=== PATIENT | female | born 1945 | race Caucasian/White ===

== ENCOUNTER 2016-03-28 12:35 | Inpatient (IN) | payer MEDICARE ==
[2016-03-28] MEDS ORDERED: methylPREDNISolone SOD SUCCI 125 MG/2 ML VIAL IV STA (12:42)
[2016-03-28] MEDS ORDERED: IPRATROPIUM-ALBUTEROL 3 ML NEB INHALATION STA (12:42)
[2016-03-28] MEDS ORDERED: MAGNESIUM SULFATE-D5W PMX 1 GM in DEXTROSE/WATER 1 100ML.BAG IVPB STA (12:42)
--- NOTE | 2016-03-28 12:45 | ED ---
SOB HPI - General Stated Complaint: AKYLA Time Seen by Provider: 03/28/16 12:35 Source: patient, EMS, RN notes reviewed Mode of arrival: EMS - History of Present Illness Initial Comments: Is a 71-year-old female history of emphysema/COPD who states she's been short of breath for the past couple weeks is getting worse today and unresponsive to her home updrafts or inhalers. She's had a cough that was nonproductive she does have some discomfort with cough but none at rest. She was found to have a saturation 79% which increased to 83 on oxygen she did have 98% saturation after the initial updraft residual is it was over she dropped to 70% again. She has had some slight fevers chills and sweats. No chest pain fevers and no bowel pain no nausea no vomiting. She does have a history of heart failure years ago. MD Complaint: shortness of breath, cough - Related Data Home Medications Medication Instructions Recorded Confirmed ALPRAZolam [Xanax] 0.5 mg PO TID PRN 03/28/16 03/28/16 Aspirin 81 mg PO DAILY 03/28/16 03/28/16 Calcium Carbonate/Vitamin D3 1 tab PO DAILY 03/28/16 03/28/16 [Calcium 500-Vit D3 600 Tablet] Fluticasone Furoate [Veramyst] 10 gm NASAL DAILY PRN 03/28/16 03/28/16 Fluticasone/Salmeterol [Advair 1 inhalation PO RT-BID 03/28/16 03/28/16 500-50 Diskus] Ipratropium/Albuterol Sulfate 1 - 2 puff INHALATION RT-QID 03/28/16 03/28/16 [Combivent Respimat Inhaler] Losartan [Cozaar] 50 mg PO DAILY 03/28/16 03/28/16 Metoprolol Succinate [Toprol XL] 25 mg PO DAILY 03/28/16 03/28/16 Multivitamins, Thera [Multivitamin] 1 tab PO DAILY 03/28/16 03/28/16 Theophylline 24 Hour [Ruben-24] 200 mg PO HS 03/28/16 03/28/16 Allergies Allergy/AdvReac Type Severity Reaction Status Date / Time fluconazole [From Diflucan] Allergy Unknown Unknown Verified 03/28/16 13:08 varenicline [From Chantix] Allergy Unknown Rash/Hives Verified 03/28/16 13:08 escitalopram [From Lexapro] AdvReac Unknown Unknown Verified 03/28/16 13:08 Review of Systems ROS Statement: Those systems with pertinent positive or pertinent negative responses have been documented in the HPI. ROS Other: All systems not noted in ROS Statement are negative. General Exam - General Exam Comments Initial Comments: This is a well-developed well-nourished awake alert anxious appearing female General appearance: alert, in no apparent distress Head exam: Present: atraumatic, normocephalic, normal inspection Eye exam: Present: normal appearance, PERRL, EOMI. Absent: scleral icterus, conjunctival injection, periorbital swelling ENT exam: Present: mucous membranes dry Neck exam: Present: normal inspection. Absent: tenderness, meningismus, lymphadenopathy Respiratory exam: Present: accessory muscle use, decreased breath sounds, prolonged expiratory. Absent: respiratory distress, wheezes, rales, rhonchi, stridor Cardiovascular Exam: Present: normal rhythm, tachycardia, normal heart sounds. Absent: systolic murmur, diastolic murmur, rubs, gallop, clicks GI/Abdominal exam: Present: soft, normal bowel sounds. Absent: distended, tenderness, guarding, rebound, rigid Extremities exam: Present: full ROM, normal capillary refill, pedal edema ( Trace edema). Absent: tenderness, joint swelling, calf tenderness Back exam: Present: normal inspection Neurological exam: Present: alert, oriented X3, CN II-XII intact Psychiatric exam: Present: normal affect, normal mood Skin exam: Present: warm, dry, intact, normal color. Absent: rash Course Vital Signs 03/28/16 03/28/16 03/28/16 12:35 13:38 13:49 Temperature 101.7 F H Pulse Rate 122 H 112 H 110 H Respiratory 26 H 22 Rate Blood Pressure 197/104 122/57 O2 Sat by Pulse 98 89 L Oximetry 03/28/16 03/28/16 03/28/16 14:03 14:08 14:38 Temperature Pulse Rate 106 H 108 H 100 Respiratory Rate Blood Pressure 129/59 118/59 O2 Sat by Pulse 90 L 89 L Oximetry 03/28/16 15:38 Temperature Pulse Rate 84 Respiratory Rate Blood Pressure 123/60 O2 Sat by Pulse 94 L Oximetry - Reevaluation(s) Reevaluation #1: 03/28/16 15:58 Repeat EKG showed a sinus rhythm of 92 IA interval 104 QRS duration 80 daily since QTC of 370/457 LVH is noted. Reevaluation #2: 03/28/16 16:01 I did reevaluate the patient after the initial treatment she still very dyspneic. Reevaluation #3: 03/28/16 16:01 The repeat eval after further treatment she did have decreased breath sounds some left lower lobe crepitation was noted. Medical Decision Making - Medical Decision Making I did a long discussion with the patient regarding the findings patient be admitted for evaluation for left lower lobe pneumonia COPD exacerbation and failed outpatient treatment. - Lab Data Result diagrams: 03/28/16 12:55 03/28/16 12:55 Lab Results 03/28/16 03/28/16 03/28/16 Range/Units 12:55 12:55 12:55 WBC 19.1 H (3.8-10.6) k/uL RBC 5.76 H (3.80-5.40) m/uL Hgb 18.0 H (11.4-16.0) gm/dL Hct 57.3 H (34.0-46.0) % MCV 99.4 (80.0-100.0) fL MCH 31.2 (25.0-35.0) pg MCHC 31.4 (31.0-37.0) g/dL RDW 13.0 (11.5-15.5) % Plt Count 313 (150-450) k/uL Neutrophils % 88 % Lymphocytes % 6 % Monocytes % 5 % Eosinophils % 1 % Basophils % 0 % Neutrophils # 16.8 H (1.3-7.7) k/uL Lymphocytes # 1.2 (1.0-4.8) k/uL Monocytes # 0.9 (0-1.0) k/uL Eosinophils # 0.1 (0-0.7) k/uL Basophils # 0.0 (0-0.2) k/uL PT (9.0-12.0) sec INR (<1.1) APTT (22.0-30.0) sec Sodium 139 (137-145) mmol/L Potassium 5.4 H (3.5-5.1) mmol/L Chloride 94 L (98-107) mmol/L Carbon Dioxide 33 H (22-30) mmol/L Anion Gap 12 mmol/L BUN 18 H (7-17) mg/dL Creatinine 0.40 L (0.52-1.04) mg/dL Est GFR (MDRD) Af Amer >60 (>60 ml/min/1.73 sqM) Est GFR (MDRD) Non-Af >60 (>60 ml/min/1.73 sqM) Glucose 103 H (74-99) mg/dL Plasma Lactic Acid Rupesh (0.7-2.0) mmol/L Calcium 9.9 (8.4-10.2) mg/dL Magnesium 2.0 (1.6-2.3) mg/dL Total Bilirubin 1.1 (0.2-1.3) mg/dL AST 39 H (14-36) U/L ALT 54 H (9-52) U/L Alkaline Phosphatase 120 (38-126) U/L Total Creatine Kinase 89 (30-135) U/L CK-MB (CK-2) 4.6 H* (0.0-2.4) ng/mL CK-MB (CK-2) Rel Index 5.2 Troponin I <0.012 (0.000-0.034) ng/mL NT-Pro-B Natriuret Pep pg/mL Total Protein 7.4 (6.3-8.2) g/dL Albumin 4.3 (3.5-5.0) g/dL 03/28/16 03/28/16 03/28/16 Range/Units 12:55 12:55 15:02 WBC (3.8-10.6) k/uL RBC (3.80-5.40) m/uL Hgb (11.4-16.0) gm/dL Hct (34.0-46.0) % MCV (80.0-100.0) fL MCH (25.0-35.0) pg MCHC (31.0-37.0) g/dL RDW (11.5-15.5) % Plt Count (150-450) k/uL Neutrophils % % Lymphocytes % % Monocytes % % Eosinophils % % Basophils % % Neutrophils # (1.3-7.7) k/uL Lymphocytes # (1.0-4.8) k/uL Monocytes # (0-1.0) k/uL Eosinophils # (0-0.7) k/uL Basophils # (0-0.2) k/uL PT 9.4 (9.0-12.0) sec INR 0.9 (<1.1) APTT 21.3 L (22.0-30.0) sec Sodium (137-145) mmol/L Potassium (3.5-5.1) mmol/L Chloride (98-107) mmol/L Carbon Dioxide (22-30) mmol/L Anion Gap mmol/L BUN (7-17) mg/dL Creatinine (0.52-1.04) mg/dL Est GFR (MDRD) Af Amer (>60 ml/min/1.73 sqM) Est GFR (MDRD) Non-Af (>60 ml/min/1.73 sqM) Glucose (74-99) mg/dL Plasma Lactic Acid Rupesh 1.9 (0.7-2.0) mmol/L Calcium (8.4-10.2) mg/dL Magnesium (1.6-2.3) mg/dL Total Bilirubin (0.2-1.3) mg/dL AST (14-36) U/L ALT (9-52) U/L Alkaline Phosphatase (38-126) U/L Total Creatine Kinase (30-135) U/L CK-MB (CK-2) (0.0-2.4) ng/mL CK-MB (CK-2) Rel Index Troponin I (0.000-0.034) ng/mL NT-Pro-B Natriuret Pep 809 pg/mL Total Protein (6.3-8.2) g/dL Albumin (3.5-5.0) g/dL - EKG Data -: EKG Interpreted by Me (EKG showed a sinus tachycardia rate 119. Interval 110 QRS duration 80 ulices) - Radiology Data Radiology results: report reviewed (Extremities show evidence of left lower lobe infiltrate.), image reviewed Critical Care Time Critical Care Time: Yes Critical Care Time: 37 minutes of critical care time which included the initial monitoring of the EMS run as well as discussed with paramedics history and physical on the patient with labs x-rays and multiple re-evaluations. Discussion with the admitting physician. Documentation of the above and initial admitting orders. Disposition Clinical Impression: Adult respiratory distress syndrome, Acute exacerbation of chronic obstructive airways disease, Left lower lobe pneumonia, Failure of outpatient treatment, Febrile illness, acute Disposition: ADMITTED IP TO THIS HOSP Condition: Stable
[2016-03-28 13:22] LABS: Basophils % (A) 0 %; CH 31.1; CHCM 31.4; Eosinophils # (A) 0.1 k/uL (0-0.7); Eosinophils % (A) 1 %; HCT 57.3 % (34.0-46.0); HDW 2.03; Luc # (Auto) 0.15; Luc % (Auto) 1; Lymphocytes # (A) 1.2 k/uL (1.0-4.8); Lymphocytes % (A) 6 %; MCH 31.2 pg (25.0-35.0); MCHC 31.4 g/dL (31.0-37.0); MCV 99.4 fL (80.0-100.0); Mean Platelet Volume 7.6; Monocytes # (A) 0.9 k/uL (0-1.0); Monocytes % (A) 5 %; Neutrophils # (A) 16.8 k/uL (1.3-7.7); Neutrophils % (A) 88 %; RBC 5.76 m/uL (3.80-5.40); WBC 19.1 k/uL (3.8-10.6); WBC (Perox) 19.38
[2016-03-28 13:33] LABS: Anion Gap 12 mmol/L; Calcium 9.9 mg/dL (8.4-10.2); Carbon Dioxide 33 mmol/L (22-30); Chloride 94 mmol/L (98-107); Glucose 103 mg/dL (74-99); Non-African American GFR(MDRD) >60 (>60 ml/min/1.73 sqM); Sodium 139 mmol/L (137-145); Total Bilirubin 1.1 mg/dL (0.2-1.3)
[2016-03-28 13:37] LABS: ALT 54 U/L (9-52); AST 39 U/L (14-36); Alkaline Phosphatase 120 U/L (38-126); Blood Urea Nitrogen 18 mg/dL (7-17); Potassium 5.4 mmol/L (3.5-5.1); Total Protein 7.4 g/dL (6.3-8.2)
[2016-03-28 13:45] LABS: Creatine Kinase 89 U/L (30-135)
[2016-03-28 13:59] LABS: Troponin I <0.012 ng/mL (0.000-0.034)
[2016-03-28 14:00] LABS: Creatine Kinase MB 4.6 ng/mL (0.0-2.4)
--- NOTE | 2016-03-28 14:34 | XR ---
EXAMINATION TYPE: XR chest 2V DATE OF EXAM: 03/28/2016 2:24 PM COMPARISON: 04/07/2011 HISTORY: Difficulty breathing TECHNIQUE: Frontal and lateral views of the chest are obtained. FINDINGS: There is coarse interstitial density throughout the lungs. There some coalescent infiltrat e in the lateral left lower lobe. There is no heart failure. There are no hilar masses. Heart size is normal. There is some flattening of the diaphragm. IMPRESSION: COPD and pulmonary fibrosis. There is no pneumonic consolidation in the lateral left low er lobe compared to last exam and most likely related to bronchopneumonia. Follow-up is recommended t o show clearing.
[2016-03-28 15:41] LABS: INR 0.9 (<1.1)
[2016-03-28 15:51] LABS: Partial Thromboplastin Time 21.3 sec (22.0-30.0)
[2016-03-28 15:52] LABS: Prothrombin Time 9.4 sec (9.0-12.0)
[2016-03-28] MEDS ORDERED: LEVOFLOXACIN 750MG-D5W PMX 750 MG in DEXTROSE/WATER 1 150ML.BAG IVPB STA (16:03)
[2016-03-28] MEDS ORDERED: PNEUMONIA PROTOCOL UTILIZED 1 EACH MISC PO PRN (16:03)
[2016-03-28] MEDS ORDERED: PIPERACILLIN-TAZOBACTAM 3.375 GM in DEXTROSE/WATER 1 50ML.BAG IVPB STA (16:03)
[2016-03-28] MEDS: SODIUM CHLORIDE 0.9% 1,000 ML IV SCH (16:17)
[2016-03-28] MEDS: methylPREDNISolone SOD SUCCI 125 MG/2 ML VIAL IV SCH (17:06)
[2016-03-28] MEDS ORDERED: IPRATROPIUM-ALBUTEROL 3 ML NEB INHALATION SCH (20:00)
[2016-03-28] MEDS ORDERED: IPRATROPIUM-ALBUTEROL 3 ML NEB INHALATION PRN (20:37)
[2016-03-28] MEDS: THEOPHYLLINE 24 HOUR 200 MG CAP.ER.24H PO SCH (21:10)
[2016-03-29] MEDS: methylPREDNISolone SOD SUCCI 125 MG/2 ML VIAL IV SCH ×5 (00:05→23:11)
[2016-03-29] MEDS: PIPERACILLIN-TAZOBACTAM 3.375 GM in DEXTROSE/WATER 1 50ML.BAG IVPB SCH ×4 (00:05→23:11)
[2016-03-29] MEDS: SODIUM CHLORIDE 0.9% 1,000 ML IV SCH ×4 (04:30→23:20)
[2016-03-29] MEDS: IPRATROPIUM-ALBUTEROL 3 ML NEB INHALATION SCH ×4 (07:17→19:55)
[2016-03-29] MEDS: METOPROLOL SUCCINATE (ER) 25 MG TAB.ER.24H PO SCH (08:02)
[2016-03-29] MEDS: ASPIRIN 81 MG CHEW PO SCH (08:02)
--- NOTE | 2016-03-29 08:17 | XR ---
EXAMINATION TYPE: XR chest 2V DATE OF EXAM: 03/29/2016 7:15 AM COMPARISON: Prior chest x-ray 28 March 2016 HISTORY: Pneumonia, COPD TECHNIQUE: Frontal and lateral views of the chest are obtained. FINDINGS: Similar findings, there is hyperinflation. There are areas of probable scarring, prominent interstitium. No pneumothorax or pleural effusion evident. Suspect some improvement in aeration alth ough there are some differences in technique. Cardiomediastinal silhouette, pulmonary vascularity and ayaka are not significantly changed. IMPRESSION: There may be some improvement in aeration.
[2016-03-29] MEDS ORDERED: LOSARTAN 50 MG TAB PO SCH (09:00)
[2016-03-29] MEDS ORDERED: INFLUENZA VACCINE (3YR+) 60 MCG/0.5 ML SYRINGE IM ONE (11:04)
[2016-03-29 12:00] LABS: Glucose,Whole Blood 113 mg/dL (75-99)
[2016-03-29] MEDS: ALPRAZolam 0.5 MG TAB PO PRN ×2 (13:22→20:32)
[2016-03-29] MEDS: MULTIVITAMINS, THERA 1 EACH TAB PO SCH (13:23)
--- NOTE | 2016-03-29 13:51 | P.CNPUL ---
History of Present Illness Consult date: 03/29/16 Reason for consult: COPD, pneumonia History of present illness: 71-year-old female patient with known history of COPD with a baseline FEV1 of 25 % of predicted. The patient is typically maintained on Advair as maintenance and Combivent rescue inhaler on as needed basis. She was smoking around 5 cigarettes on a daily basis and she quit smoking approximately a week ago. Note that she started having increased shortness of breath approximately 2 weeks ago. Her symptoms were essentially increased dyspnea, cough, chest tightness, unable to bring up much sputum. She was having some occasional chills and fever. She presented to our office and she was seen by the nurse practitioner and she was given a course of antibiotics and steroids. She initially improved however prior to complete the steroids the patient started having the same symptoms of increased dyspnea. She contacted our office and she was referred to the MRSA department. A chest x-ray was done in the ED and the patient was found to have a left lower lobe pulmonary infiltrate/pneumonia. She was started on speculum antibiotics and she was hospitalized for further treatment. Likely she is feeling slightly improved compared to yesterday. No hemoptysis. Was complaining of some pleuritic pain across her chest bilaterally in the lower. No swelling in the lower extremities. Review of Systems For review of system was done. Positive findings are almost above in history of present illness. Past Medical History Past Medical History: Heart Failure, COPD, Hypertension History of Any Multi-Drug Resistant Organisms: None Reported Past Surgical History: Tonsillectomy, Tubal Ligation Additional Past Surgical History / Comment(s): cataracts sx Past Anesthesia/Blood Transfusion Reactions: No Reported Reaction Past Psychological History: Anxiety, Depression Smoking Status: Current every day smoker (Patient has smoked a total of 35-40 years and currently she is not smoking for the past 1 week. She was to smoke approximately 5 cigars a day and she is in the process of quitting. No substance abuse. Most of IVDA.) Past Alcohol Use History: Occasional Past Drug Use History: None Reported Medications and Allergies Home Medications Medication Instructions Recorded Confirmed Type ALPRAZolam [Xanax] 0.5 mg PO TID PRN 03/28/16 03/28/16 History Aspirin 81 mg PO DAILY 03/28/16 03/28/16 History Calcium Carbonate/Vitamin D3 1 tab PO DAILY 03/28/16 03/28/16 History [Calcium 500-Vit D3 600 Tablet] Fluticasone Furoate [Veramyst] 10 gm NASAL DAILY PRN 03/28/16 03/28/16 History Fluticasone/Salmeterol [Advair 1 inhalation PO RT-BID 03/28/16 03/28/16 History 500-50 Diskus] Ipratropium/Albuterol Sulfate 1 - 2 puff INHALATION RT-QID 03/28/16 03/28/16 History [Combivent Respimat Inhaler] Losartan [Cozaar] 50 mg PO DAILY 03/28/16 03/28/16 History Metoprolol Succinate [Toprol XL] 25 mg PO DAILY 03/28/16 03/28/16 History Multivitamins, Thera [Multivitamin] 1 tab PO DAILY 03/28/16 03/28/16 History Theophylline 24 Hour [Ruben-24] 200 mg PO HS 03/28/16 03/28/16 History Allergies Allergy/AdvReac Type Severity Reaction Status Date / Time fluconazole [From Diflucan] Allergy Unknown Unknown Verified 03/28/16 13:08 varenicline [From Chantix] Allergy Unknown Rash/Hives Verified 03/28/16 13:08 escitalopram [From Lexapro] AdvReac Unknown Unknown Verified 03/28/16 13:08 Physical Exam Vitals: Vital Signs Temp Pulse Pulse Resp BP BP Pulse Ox 03/29/16 11:22 86 03/29/16 11:11 90 03/29/16 07:28 86 03/29/16 07:19 86 93 L 03/29/16 07:00 97.6 F 80 18 99/52 96 03/28/16 23:19 97.4 F L 80 16 109/52 95 03/28/16 20:04 85 03/28/16 19:55 85 93 L 03/28/16 17:13 96.9 F L 86 20 105/61 94 L 03/28/16 16:33 98.1 F 91 22 131/65 93 L 03/28/16 16:08 89 18 129/59 94 L Intake and Output 03/28/16 03/29/16 03/29/16 22:59 06:59 14:59 Intake Total 200 Balance 200 Intake: Oral 200 Other: # Voids 1 Weight 48 kg 48 kg 48 kg Patient Weight 03/30/16 06:59 Weight 48 kg Head exam was generally normal. There was no scleral icterus or corneal arcus. Mucous membranes were moist.Neck was supple and without jugular venous distension, thyromegaly, or carotid bruits. Carotids were easily palpable bilaterally. There was no adenopathy.Cardiac exam revealed the PMI to be normally situated and sized. The rhythm was regular and no extrasystoles were noted during several minutes of auscultation. The first and second heart sounds were normal and physiologic splitting of the second heart sound was noted. There were no murmurs, rubs, clicks, or gallops. Lung sounds are diminished bilaterally. The patient is a barrel chest. There is diffuse expiratory wheezes throughout the lung is bilaterally. There is scattered rhonchi also heard throughout the lung wilkinson bilaterally.Abdominal exam revealed normal bowel sounds. The abdomen was soft, non-tender, and without masses, organomegaly , or appreciable enlargement of the abdominal aorta. Normal extremities Results - Laboratory Findings CBC and BMP: 03/28/16 12:55 03/28/16 12:55 PT/INR, D-dimer PT 9.4 sec (9.0-12.0) 03/28/16 15:02 INR 0.9 (<1.1) 03/28/16 15:02 Abnormal lab findings: Abnormal Labs 03/29/16 11:58 POC Glucose (mg/dL) 113 H - Diagnostic Findings Chest x-ray: image reviewed Assessment and Plan Plan: impression 1 acute COPD exacerbation with a left lower lobe pneumonia. The patient received outpatient treatment and she failed outpatient therapy. As such she presented with increased shortness of breath and ongoing difficulties with breathing and she was found to have a left lower lobe pulmonary infiltrates typical of an underlying pneumonia. 2 COPD with a baseline FEV1 of 25% of predicted. 3 chronic dyspnea. 4 nicotine addiction 5 leukocytosis secondary to above 6 borderline thrombocytopenia Plan We'll obtain a sputum Gram stain and culture. We'll put the patient broad- spectrum antibiotics including a combination of Zosyn and Levaquin. We will put the patient IV Solu Medrol 60 mg IV push every 6 hours. We'll put the patient a combination of budesonide and Perforomist neb last 2 minutes twice a day. We'll continue the albuterol and ipratropium bromide 4 times a day. Clinically the patient is improved and I improvement over the next 24-48 hours. Heparin subcu for DVT prophylaxis. We'll continue to follow.
[2016-03-29 17:08] LABS: Glucose,Whole Blood 132 mg/dL (75-99)
[2016-03-29] MEDS: INSULIN LISPRO (humaLOG) 300 UNIT/3 ML VIAL SQ SCH ×2 (17:45→21:02)
[2016-03-29] MEDS: HEPARIN SODIUM,PORCINE 5,000 UNIT/ML 1 ML VIAL SQ SCH ×2 (17:45→23:11)
[2016-03-29] MEDS: LEVOFLOXACIN 750 MG TAB PO SCH (17:46)
[2016-03-29 18:50] LABS: Hemoglobin A1C 5.2 % (4.2-6.1)
[2016-03-29] MEDS: BUDESONIDE 1 MG/2 ML NEBU INHALATION SCH (19:55)
[2016-03-29] MEDS: FORMOTEROL FUMARATE 20 MCG/2 ML NEBU INHALATION SCH (19:55)
[2016-03-29] MEDS: THEOPHYLLINE 24 HOUR 200 MG CAP.ER.24H PO SCH (20:32)
--- NOTE | 2016-03-29 20:34 | P.HPIM ---
History of Present Illness H&P Date: 03/29/16 Chief Complaint: Difficulty breathing 71-year-old female with history of COPD and a baseline FEV of 25% with gold's stage IV is admitted to the hospital with progressive worsening of dyspnea. Patient finished a course of her steroid taper that was started by her licsw over 2 weeks ago when she was seen for similar complaints. Patient however did not improve. Patient states that she has a cough that has been nonproductive in nature. Her breathing difficulty has progressively gotten worse over the last few days. Denies having any fevers or chills prior to presentation. In the ER a chest x-ray was concerning for a left lower lobe pneumonia. Patient was slightly hypoxic started on supplemental oxygen and was given a dose of steroids and triaged to medical floor. Currently states that she has a cough however is nonproductive in nature. Denies any chest pain, abdominal pain, urinary urgency or frequency. No change in bowel habits have been reported. Review of Systems All systems: negative (Noted in HPI) Past Medical History Past Medical History: Heart Failure, COPD, Hypertension History of Any Multi-Drug Resistant Organisms: None Reported Past Surgical History: Tonsillectomy, Tubal Ligation Additional Past Surgical History / Comment(s): cataracts sx Past Anesthesia/Blood Transfusion Reactions: No Reported Reaction Past Psychological History: Anxiety, Depression Smoking Status: Current every day smoker (Patient has smoked a total of 35-40 years and currently she is not smoking for the past 1 week. She was to smoke approximately 5 cigars a day and she is in the process of quitting. No substance abuse. Most of IVDA.) Past Alcohol Use History: Occasional Past Drug Use History: None Reported Medications and Allergies Home Medications Medication Instructions Recorded Confirmed Type ALPRAZolam [Xanax] 0.5 mg PO TID PRN 03/28/16 03/28/16 History Aspirin 81 mg PO DAILY 03/28/16 03/28/16 History Calcium Carbonate/Vitamin D3 1 tab PO DAILY 03/28/16 03/28/16 History [Calcium 500-Vit D3 600 Tablet] Fluticasone Furoate [Veramyst] 10 gm NASAL DAILY PRN 03/28/16 03/28/16 History Fluticasone/Salmeterol [Advair 1 inhalation PO RT-BID 03/28/16 03/28/16 History 500-50 Diskus] Ipratropium/Albuterol Sulfate 1 - 2 puff INHALATION RT-QID 03/28/16 03/28/16 History [Combivent Respimat Inhaler] Losartan [Cozaar] 50 mg PO DAILY 03/28/16 03/28/16 History Metoprolol Succinate [Toprol XL] 25 mg PO DAILY 03/28/16 03/28/16 History Multivitamins, Thera [Multivitamin] 1 tab PO DAILY 03/28/16 03/28/16 History Theophylline 24 Hour [Ruben-24] 200 mg PO HS 03/28/16 03/28/16 History Allergies Allergy/AdvReac Type Severity Reaction Status Date / Time fluconazole [From Diflucan] Allergy Unknown Unknown Verified 03/28/16 13:08 varenicline [From Chantix] Allergy Unknown Rash/Hives Verified 03/28/16 13:08 escitalopram [From Lexapro] AdvReac Unknown Unknown Verified 03/28/16 13:08 Physical Exam Vitals: Vital Signs Temp Pulse Pulse Resp BP Pulse Ox 03/29/16 20:15 84 03/29/16 20:06 88 03/29/16 20:05 88 03/29/16 19:56 88 03/29/16 16:19 88 03/29/16 16:03 88 03/29/16 14:55 98 F 87 20 102/53 94 L 03/29/16 11:22 86 03/29/16 11:11 90 03/29/16 07:28 86 03/29/16 07:19 86 93 L 03/29/16 07:00 97.6 F 80 18 99/52 96 03/28/16 23:19 97.4 F L 80 16 109/52 95 Intake and Output 03/29/16 03/29/16 03/29/16 06:59 14:59 22:59 Intake Total 200 Balance 200 Intake: Oral 200 Other: # Voids 1 3 Weight 48 kg 48 kg Patient Weight 03/30/16 06:59 Weight 48 kg Gen. appearance alert oriented 3 appears to be in mild respiratory distress Lungs silent chest no rhonchi or wheezing appreciated Chest regular rate and rhythm no murmurs appreciated Abdomen is soft nontender organomegaly HE no thrush appreciated Lower ext no edema appreciated Neurologically no focal motor or sensory deficits appreciated Results CBC & Chem 7: 03/28/16 12:55 03/28/16 12:55 Labs: Abnormal Lab Results - Last 24 Hours (Table) 03/29/16 03/29/16 Range/Units 11:58 17:02 POC Glucose (mg/dL) 113 H 132 H (75-99) mg/dL Microbiology - Last 24 Hours (Table) 03/29/16 05:15 Gram Stain - Preliminary Sputum Thrombosis Risk Factor Assmnt - Choose All That Apply Each Factor Represents 1 point: Abnormal pulmonary function (COPD) Each Risk Factor Represents 2 Points: Age 61-74 years Other congenital or acquired thrombophilia - If yes, enter type in comment: No Thrombosis Risk Factor Assessment Total Risk Factor Score: 3 Thrombosis Risk Factor Assessment Level: Moderate Risk Assessment and Plan Plan: #1 acute hypoxic respiratory failure secondary to a left lower lobe pneumonia causing a COPD exacerbation in a patient with advanced COPD #2 sepsis secondary to above #3 hyperkalemia #4 elevated hemoglobin likely secondary to chronic hypoxia #5 history of hypertension Plan A pulmonology consult will be obtained. Patient is started on IV steroids. DuoNeb discharge started. Perforomist and Pulmicort will be initiated as well. DVT prophylaxis. We'll consider Mucomyst if patient does not bring up any secretions tomorrow. Hold losartan light of hyperkalemia. Patient also getting multiple doses of albuterol which would help with the hyperkalemia.
[2016-03-29 21:05] LABS: Glucose,Whole Blood 144 mg/dL (75-99)
[2016-03-30] MEDS: methylPREDNISolone SOD SUCCI 125 MG/2 ML VIAL IV SCH ×4 (05:04→23:03)
[2016-03-30 07:05] LABS: Glucose,Whole Blood 140 mg/dL (75-99)
[2016-03-30] MEDS: INSULIN LISPRO (humaLOG) 300 UNIT/3 ML VIAL SQ SCH ×4 (08:00→21:18)
[2016-03-30] MEDS: HEPARIN SODIUM,PORCINE 5,000 UNIT/ML 1 ML VIAL SQ SCH ×3 (08:00→23:04)
[2016-03-30] MEDS: SODIUM CHLORIDE 0.9% 1,000 ML IV SCH ×2 (08:00→15:20)
[2016-03-30] MEDS: METOPROLOL SUCCINATE (ER) 25 MG TAB.ER.24H PO SCH (08:00)
[2016-03-30] MEDS: PIPERACILLIN-TAZOBACTAM 3.375 GM in DEXTROSE/WATER 1 50ML.BAG IVPB SCH ×3 (08:00→23:04)
[2016-03-30] MEDS: ASPIRIN 81 MG CHEW PO SCH (08:00)
[2016-03-30] MEDS: FORMOTEROL FUMARATE 20 MCG/2 ML NEBU INHALATION SCH ×2 (09:45→20:35)
[2016-03-30] MEDS: IPRATROPIUM-ALBUTEROL 3 ML NEB INHALATION SCH ×4 (09:45→20:35)
[2016-03-30] MEDS: BUDESONIDE 1 MG/2 ML NEBU INHALATION SCH ×2 (09:45→20:35)
--- NOTE | 2016-03-30 09:59 | P.PN ---
Subjective 71-year-old female patient with known history of COPD with a baseline FEV1 of 25 % of predicted. The patient is typically maintained on Advair as maintenance and Combivent rescue inhaler on as needed basis. She was smoking around 5 cigarettes on a daily basis and she quit smoking approximately a week ago. Note that she started having increased shortness of breath approximately 2 weeks ago. Her symptoms were essentially increased dyspnea, cough, chest tightness, unable to bring up much sputum. She was having some occasional chills and fever. She presented to our office and she was seen by the nurse practitioner and she was given a course of antibiotics and steroids. She initially improved however prior to complete the steroids the patient started having the same symptoms of increased dyspnea. She contacted our office and she was referred to the ED department. A chest x-ray was done in the ED and the patient was found to have a left lower lobe pulmonary infiltrate/pneumonia. She was started on speculum antibiotics and she was hospitalized for further treatment. Likely she is feeling slightly improved compared to yesterday. No hemoptysis. Was complaining of some pleuritic pain across her chest bilaterally in the lower. No swelling in the lower extremities. On 03/30/2016 the patient is being seen in follow-up. She reports that she is essentially the same and she is having difficulties with breathing along with a congested cough and unable to bring up any significant sputum. On examination however she has improved air entry bilaterally. No chest pain at this point. She is receiving Zosyn and Levaquin as a broad-spectrum antibiotic coverage. And she is also on Solu-Medrol and bronchodilators around the clock. Objective - Vital Signs Vital signs: Vital Signs Temp 97.0 F L 03/30/16 07:00 Pulse 64 03/30/16 09:46 Resp 20 03/30/16 07:00 BP 122/66 03/30/16 07:00 Pulse Ox 98 03/30/16 07:00 Intake & Output 03/29/16 03/30/16 03/30/16 18:59 06:59 18:59 Intake Total 200 500 Balance 200 500 Weight 48 kg 48.5 kg Intake: Oral 200 500 Other: Voiding Method Toilet # Voids 3 2 - Exam Head exam was generally normal. There was no scleral icterus or corneal arcus. Mucous membranes were moist.Neck was supple and without jugular venous distension, thyromegaly, or carotid bruits. Carotids were easily palpable bilaterally. There was no adenopathy.Cardiac exam revealed the PMI to be normally situated and sized. The rhythm was regular and no extrasystoles were noted during several minutes of auscultation. The first and second heart sounds were normal and physiologic splitting of the second heart sound was noted. There were no murmurs, rubs, clicks, or gallops. Lung sounds are diminished bilaterally. The patient is a barrel chest. There is diffuse expiratory wheezes throughout the lung is bilaterally. There is scattered rhonchi also heard throughout the lung wilkinson bilaterally.Abdominal exam revealed normal bowel sounds. The abdomen was soft, non-tender, and without masses, organomegaly , or appreciable enlargement of the abdominal aorta. Normal extremities - Labs CBC & Chem 7: 03/28/16 12:55 03/28/16 12:55 Labs: Abnormal Lab Results - Last 24 Hours (Table) 03/29/16 03/29/16 03/29/16 Range/Units 11:58 17:02 20:50 POC Glucose (mg/dL) 113 H 132 H 144 H (75-99) mg/dL 03/30/16 Range/Units 07:02 POC Glucose (mg/dL) 140 H (75-99) mg/dL Microbiology - Last 24 Hours (Table) 03/29/16 05:15 Gram Stain - Preliminary Sputum Assessment and Plan Plan: impression 1 acute COPD exacerbation with a left lower lobe pneumonia. The patient received outpatient treatment and she failed outpatient therapy. As such she presented with increased shortness of breath and ongoing difficulties with breathing and she was found to have a left lower lobe pulmonary infiltrates typical of an underlying pneumonia. On 03/30/2016, the patient is still under treatment. She is having bronchitis steroids and antibiotics. Limited improvement if any since yesterday. 2 COPD with a baseline FEV1 of 25% of predicted. 3 chronic dyspnea. 4 nicotine addiction 5 leukocytosis secondary to above 6 borderline thrombocytopenia Plan We'll continue same treatment. No change in her regimen. Anticipate further improvement hopefully with the next 24-48 hours. We'll continue to follow.
[2016-03-30 10:24] LABS: Basophils % (A) 0 %; CH 30.8; CHCM 30.4; Eosinophils % (A) 0 %; HCT 45.5 % (34.0-46.0); HDW 2.09; Hypochromasia Slight; Luc # (Auto) 0.08; Luc % (Auto) 1; Lymphocytes # (A) 0.3 k/uL (1.0-4.8); Lymphocytes % (A) 2 %; MCH 30.6 pg (25.0-35.0); MCHC 30.1 g/dL (31.0-37.0); MCV 101.6 fL (80.0-100.0); Mean Platelet Volume 7.2; Monocytes # (A) 0.6 k/uL (0-1.0); Monocytes % (A) 4 %; Neutrophils # (A) 16.4 k/uL (1.3-7.7); Neutrophils % (A) 94 %; RBC 4.48 m/uL (3.80-5.40); RDW 12.9 % (11.5-15.5); WBC 17.4 k/uL (3.8-10.6); WBC (Perox) 17.06
[2016-03-30 10:30] LABS: ALT 72 U/L (9-52); AST 62 U/L (14-36); Alkaline Phosphatase 85 U/L (38-126); Anion Gap 10 mmol/L; Blood Urea Nitrogen 25 mg/dL (7-17); Calcium 9.1 mg/dL (8.4-10.2); Carbon Dioxide 32 mmol/L (22-30); Chloride 98 mmol/L (98-107); Glucose 162 mg/dL (74-99); Non-African American GFR(MDRD) >60 (>60 ml/min/1.73 sqM); Potassium 4.3 mmol/L (3.5-5.1); Sodium 140 mmol/L (137-145); Total Bilirubin 0.4 mg/dL (0.2-1.3); Total Protein 5.6 g/dL (6.3-8.2)
[2016-03-30 10:41] LABS: HGB 13.7 gm/dL (11.4-16.0)
[2016-03-30] MEDS: MULTIVITAMINS, THERA 1 EACH TAB PO SCH (11:10)
[2016-03-30] MEDS: ALPRAZolam 0.5 MG TAB PO PRN ×2 (11:13→21:06)
[2016-03-30 12:31] LABS: Glucose,Whole Blood 118 mg/dL (75-99)
[2016-03-30] MEDS: LEVOFLOXACIN 750 MG TAB PO SCH (15:20)
[2016-03-30 17:05] LABS: Glucose,Whole Blood 152 mg/dL (75-99)
[2016-03-30] MEDS: THEOPHYLLINE 24 HOUR 200 MG CAP.ER.24H PO SCH (21:06)
[2016-03-30 21:15] LABS: Glucose,Whole Blood 140 mg/dL (75-99)
--- NOTE | 2016-03-30 21:40 | P.PN ---
Subjective Pt was admitted to the hosptial with difficulty in breathing. Was noted to have COPD exacerbation. Baseline fev of 25%. Today, states to be slightly improved, cough with no productive sputum is reported. No fevers, chills, n/v, diarrhea. Objective - Vital Signs Vital signs: Vital Signs Temp 99.1 F 03/30/16 15:00 Pulse 80 03/30/16 21:00 Resp 16 03/30/16 15:00 BP 99/68 03/30/16 15:00 Pulse Ox 92 L 03/30/16 15:00 Intake & Output 03/30/16 03/30/16 03/31/16 06:59 18:59 06:59 Intake Total 500 Balance 500 Weight 48.5 kg Intake: Oral 500 Other: Voiding Method Toilet Toilet # Voids 2 2 - Exam Gen: alert and oriented times 3 Lungs air movement is appreciated, expiratory wheezing is noted. No rhochi Heart RRR, no murmurs appreciated. Abdomen Soft non tender, no organomegaly. Neuro no focal motor or sensory deficits appreciated. - Labs CBC & Chem 7: 03/30/16 09:52 03/30/16 09:52 Labs: Abnormal Lab Results - Last 24 Hours (Table) 03/30/16 03/30/16 03/30/16 Range/Units 07:02 09:52 09:52 WBC 17.4 H (3.8-10.6) k/uL MCV 101.6 H (80.0-100.0) fL MCHC 30.1 L (31.0-37.0) g/dL Neutrophils # 16.4 H (1.3-7.7) k/uL Lymphocytes # 0.3 L (1.0-4.8) k/uL Carbon Dioxide 32 H (22-30) mmol/L BUN 25 H (7-17) mg/dL Glucose 162 H (74-99) mg/dL POC Glucose (mg/dL) 140 H (75-99) mg/dL AST 62 H (14-36) U/L ALT 72 H (9-52) U/L Total Protein 5.6 L (6.3-8.2) g/dL Albumin 3.0 L (3.5-5.0) g/dL 03/30/16 03/30/16 03/30/16 Range/Units 12:29 17:03 21:13 WBC (3.8-10.6) k/uL MCV (80.0-100.0) fL MCHC (31.0-37.0) g/dL Neutrophils # (1.3-7.7) k/uL Lymphocytes # (1.0-4.8) k/uL Carbon Dioxide (22-30) mmol/L BUN (7-17) mg/dL Glucose (74-99) mg/dL POC Glucose (mg/dL) 118 H 152 H 140 H (75-99) mg/dL AST (14-36) U/L ALT (9-52) U/L Total Protein (6.3-8.2) g/dL Albumin (3.5-5.0) g/dL Microbiology - Last 24 Hours (Table) 03/29/16 05:15 Gram Stain - Preliminary Sputum Sputum Culture - Preliminary Mary albicans Assessment and Plan Plan: #1 acute hypoxic respiratory failure secondary to a left lower lobe pneumonia causing a COPD exacerbation in a patient with advanced COPD #2 sepsis secondary to above #3 hyperkalemia #4 elevated hemoglobin likely secondary to chronic hypoxia #5 history of hypertension Plan Continue ongoing care Potassium is stable will need another 24-48 hrs of inpatient tx. O2 as needed empiric abx to treat HCAP.
[2016-03-31] MEDS: SODIUM CHLORIDE 0.9% 1,000 ML IV SCH ×3 (06:19→23:51)
[2016-03-31] MEDS: methylPREDNISolone SOD SUCCI 125 MG/2 ML VIAL IV SCH ×4 (06:19→23:50)
[2016-03-31 07:16] LABS: Glucose,Whole Blood 117 mg/dL (75-99)
[2016-03-31] MEDS: INSULIN LISPRO (humaLOG) 300 UNIT/3 ML VIAL SQ SCH ×4 (07:45→22:31)
[2016-03-31] MEDS: PIPERACILLIN-TAZOBACTAM 3.375 GM in DEXTROSE/WATER 1 50ML.BAG IVPB SCH ×3 (07:45→23:50)
[2016-03-31] MEDS: METOPROLOL SUCCINATE (ER) 25 MG TAB.ER.24H PO SCH (07:45)
[2016-03-31] MEDS: ASPIRIN 81 MG CHEW PO SCH (07:45)
[2016-03-31] MEDS: HEPARIN SODIUM,PORCINE 5,000 UNIT/ML 1 ML VIAL SQ SCH ×3 (07:45→23:50)
[2016-03-31] MEDS: ALPRAZolam 0.5 MG TAB PO PRN ×3 (07:45→21:02)
--- NOTE | 2016-03-31 07:54 | XR ---
EXAMINATION TYPE: XR chest 2V DATE OF EXAM: 03/31/2016 7:25 AM COMPARISON: 03/29/2016 HISTORY: COPD FINDINGS: Hyperinflation suggests COPD. Degenerative change of the spine seen with a mild wedge deformity withi n the mid thoracic region appears stable. Subsegmental infiltrate at the lung bases greater on the left is stable. Diffuse osteopenia noted. No pneumothorax. Heart size is enlarged but stable. IMPRESSION: 1. COPD with stable basilar infiltrate.
[2016-03-31 08:03] LABS: Basophils % (A) 0 %; CH 30.7; CHCM 30.2; Eosinophils % (A) 0 %; HCT 46.8 % (34.0-46.0); HDW 2.08; HGB 14.2 gm/dL (11.4-16.0); Hypochromasia Slight; Luc # (Auto) 0.08; Luc % (Auto) 1; Lymphocytes # (A) 0.3 k/uL (1.0-4.8); Lymphocytes % (A) 2 %; MCHC 30.4 g/dL (31.0-37.0); MCV 101.9 fL (80.0-100.0); Mean Platelet Volume 6.7; Monocytes # (A) 0.4 k/uL (0-1.0); Monocytes % (A) 3 %; Neutrophils # (A) 11.6 k/uL (1.3-7.7); Neutrophils % (A) 94 %; RBC 4.59 m/uL (3.80-5.40); RDW 12.8 % (11.5-15.5); WBC 12.4 k/uL (3.8-10.6); WBC (Perox) 13.12
[2016-03-31 08:08] LABS: ALT 91 U/L (9-52); AST 63 U/L (14-36); Alkaline Phosphatase 84 U/L (38-126); Anion Gap 7 mmol/L; Blood Urea Nitrogen 25 mg/dL (7-17); Calcium 9.3 mg/dL (8.4-10.2); Carbon Dioxide 34 mmol/L (22-30); Chloride 98 mmol/L (98-107); Glucose 132 mg/dL (74-99); Non-African American GFR(MDRD) >60 (>60 ml/min/1.73 sqM); Potassium 5.2 mmol/L (3.5-5.1); Sodium 139 mmol/L (137-145); Total Bilirubin 0.5 mg/dL (0.2-1.3); Total Protein 5.8 g/dL (6.3-8.2)
[2016-03-31] MEDS: BUDESONIDE 1 MG/2 ML NEBU INHALATION SCH ×2 (08:58→20:21)
[2016-03-31] MEDS: FORMOTEROL FUMARATE 20 MCG/2 ML NEBU INHALATION SCH ×2 (08:59→20:21)
[2016-03-31] MEDS: IPRATROPIUM-ALBUTEROL 3 ML NEB INHALATION SCH ×4 (08:59→20:22)
[2016-03-31] MEDS: MULTIVITAMINS, THERA 1 EACH TAB PO SCH (11:31)
[2016-03-31 12:18] LABS: Glucose,Whole Blood 102 mg/dL (75-99)
--- NOTE | 2016-03-31 13:55 | CDI ---
In responding to this query, please exercise your independent professional judgment. The [facility] Coding Staff and Clinical Documentation Specialists appreciate your assistance in clarifying documentation, maintaining compliance with coding guidelines, accurately documenting patients condition and capturing severity of illness. The fact that a question is asked does not imply that any particular answer is desired or expected. Communication forms are a method of clarifying documentation and are not made part of the Legal Health Record. Thank you in advance for your clarification. Last Revision, January 2015 Fartun Arellano [address] [facility] [place] [address] Documentation Clarification Form Date: 03/31/2016 4:49:00 PM From: Anayeli Del Rio RN, CCDS Admit Date: 03/28/2016 4:03:00 PM Patient Name: Xochitl Maldonado Visit Number: [id number] Dr. Lesvia Johnson Pneumonia was documented in your notes History/Risk Factors: COPD, Pneumonia failed outpatient [place] Clinical Indicators: Left lower lobe pneumonia failed outpatient treatment WBC: WBC 19.1/17.4/12.4 Left shift: 16.8/16.4/11.6 03/28 CXR: " COPD and pulmonary fibrosis. There is no pneumonic consolidation in the lateral left lower lobe compared to last exam and most likely related to bronchopneumonia. Follow-up is recommended to show clearing." 03/29 Pulmonary Lung/Breathing assessment: "Lung sounds are diminished bilaterally. The patient is a barrel chest. There is diffuse expiratory wheezes throughout the lung is bilaterally. There is scattered rhonchi also heard throughout the lung wilkinson bilaterally." Treatment: Antibiotics: Zosyn 3.375 MG IVPB Q 8 hrs O2: 100% NRB decreased to 5L, then 3L NC Breathing TX: Duoneb QID and Q 2 hrs PRN In order to capture the severity of condition, please clarify if the condition signifies and you are treating for: Aspiration Pneumonia, identify if: Due to solids or liquids Bacterial Pneumonia, specify causal organism (if known) Gram Negative Pneumonia Due to Strep Due to Staph Due to E. coli Other bacteria (specify) Viral Pneumonia, specify casual organism (if known) Ventilator Associated Pneumonia Healthcare Acquired Pneumonia/Pneumonia, unspecified Unable to determine Link any associated conditions to the pneumonia: Influenza with secondary gram negative pneumonia Sepsis due to pneumonia Acute respiratory failure due to pneumonia Other, please specify Please document in your progress notes and discharge summary in order to capture severity of illness and risk of mortality. Include clinical findings that support your diagnosis. FYI: Press F11 to launch patient chart. Place X here if this finding has no clinical significance, is not applicable or if you are not able to provide any additional documentation. MTDD
[2016-03-31] MEDS: LEVOFLOXACIN 750 MG TAB PO SCH (15:17)
--- NOTE | 2016-03-31 15:34 | P.PN ---
Subjective This is a very pleasant 71-year-old female patient who follows with Dr. Cameron is her primary care physician. She also follows in our office for severe advanced obstructive pulmonary disease. Her FEV1 value is 25% of predicted. She was admitted here on 03/28/2016 for an acute exacerbation of her COPD and had failed outpatient treatment. She was also found to have a left lower lobe pulmonary infiltrate/pneumonia. She has been treated with Zosyn and Levaquin while here. She is seen again today in follow-up. She is awake and alert in no acute distress. She states she is breathing slightly better today as compared to yesterday but not quite back to her baseline. She denies any worsening shortness of breath, cough or congestion. He is maintaining good O2 saturations in the mid 90s on 3 L/m per nasal cannula. Objective - Vital Signs Vital signs: Vital Signs Temp 98.0 F 03/31/16 07:00 Pulse 80 03/31/16 13:10 Resp 20 03/31/16 07:00 BP 127/65 03/31/16 07:00 Pulse Ox 94 L 03/31/16 07:00 Intake & Output 03/30/16 03/31/16 03/31/16 18:59 06:59 18:59 Weight 51 kg Other: Voiding Method Toilet Toilet Toilet # Voids 2 3 2 - Exam GENERAL EXAM: Alert, active, comfortable in no apparent distress. HEAD: Normocephalic. EYES: Normal reaction of pupils, equal size. NOSE: Clear with pink turbinates. THROAT: No erythema or exudates. NECK: No masses, no JVD. CHEST: No chest wall deformity. LUNGS: Bilateral end expiratory wheeze. Diminished throughout. CVS: S1 and S2 normal with no audible murmurs, regular rhythm. ABDOMEN: No hepatosplenomegaly, normal bowel sounds, no guarding or rigidity. SPINE: No scoliosis or deformity SKIN: No rashes CENTRAL NERVOUS SYSTEM: No focal deficits, tone is normal in all 4 extremities. Extremities: There is no significant peripheral edema. No clubbing, no cyanosis. Peripheral pulses are intact. - Labs CBC & Chem 7: 03/31/16 07:37 03/31/16 07:33 Labs: Abnormal Lab Results - Last 24 Hours (Table) 03/30/16 03/30/16 03/31/16 Range/Units 17:03 21:13 07:14 WBC (3.8-10.6) k/uL Hct (34.0-46.0) % MCV (80.0-100.0) fL MCHC (31.0-37.0) g/dL Neutrophils # (1.3-7.7) k/uL Lymphocytes # (1.0-4.8) k/uL Potassium (3.5-5.1) mmol/L Carbon Dioxide (22-30) mmol/L BUN (7-17) mg/dL Glucose (74-99) mg/dL POC Glucose (mg/dL) 152 H 140 H 117 H (75-99) mg/dL AST (14-36) U/L ALT (9-52) U/L Total Protein (6.3-8.2) g/dL Albumin (3.5-5.0) g/dL 03/31/16 03/31/16 03/31/16 Range/Units 07:33 07:37 12:16 WBC 12.4 H (3.8-10.6) k/uL Hct 46.8 H (34.0-46.0) % MCV 101.9 H (80.0-100.0) fL MCHC 30.4 L (31.0-37.0) g/dL Neutrophils # 11.6 H (1.3-7.7) k/uL Lymphocytes # 0.3 L (1.0-4.8) k/uL Potassium 5.2 H (3.5-5.1) mmol/L Carbon Dioxide 34 H (22-30) mmol/L BUN 25 H (7-17) mg/dL Glucose 132 H (74-99) mg/dL POC Glucose (mg/dL) 102 H (75-99) mg/dL AST 63 H (14-36) U/L ALT 91 H (9-52) U/L Total Protein 5.8 L (6.3-8.2) g/dL Albumin 3.2 L (3.5-5.0) g/dL Microbiology - Last 24 Hours (Table) 03/29/16 05:15 Gram Stain - Final Sputum Sputum Culture - Final Mary albicans Assessment and Plan Plan: Impression: #1 Acute exacerbation of chronic obstructive pulmonary disease, complicated by left lower lobe pneumonia. Failed outpatient therapy. #2 Advanced oxygen-dependent chronic obstructive pulmonary disease, Gold stage IV, FEV1 value 25% of predicted. #3 Acute on chronic hypoxic respiratory failure secondary to above. 4 Chronic nicotine addiction. #5 Leukocytosis secondary to above. #6 Borderline thrombocytopenia. Plan: The patient was seen and evaluated by Dr. Johnson. Her chest x-ray and labs were reviewed. There is improvement in the left lung base infiltrate. The patient is slow to progress and we will increase her activity as tolerated. We' ll continue with her current medications. We'll continue to follow make further recommendations based on her clinical status.
--- NOTE | 2016-03-31 15:54 | P.PN ---
Subjective Pt was admitted to the hosptial with difficulty in breathing. Was noted to have COPD exacerbation. Baseline fev of 25%. Today, states to be slightly improved, cough with no productive sputum is reported. No fevers, chills, n/v, diarrhea. 03/31/2016 Patient was ambulated to the bathroom today patient stated she was able tolerate however got significant short of breath. Patient does have a cough that is mildly productive of sputum. Denies having any fevers chills nausea vomiting at this time. Objective - Vital Signs Vital signs: Vital Signs Temp 98.0 F 03/31/16 07:00 Pulse 80 03/31/16 13:10 Resp 20 03/31/16 07:00 BP 127/65 03/31/16 07:00 Pulse Ox 94 L 03/31/16 07:00 Intake & Output 03/30/16 03/31/16 03/31/16 18:59 06:59 18:59 Weight 51 kg Other: Voiding Method Toilet Toilet Toilet # Voids 2 3 2 - Exam Gen: alert and oriented times 3 Lungs air movement is appreciated, expiratory wheezing is noted. No rhochi Heart RRR, no murmurs appreciated. Abdomen Soft non tender, no organomegaly. Neuro no focal motor or sensory deficits appreciated. - Labs CBC & Chem 7: 03/31/16 07:37 03/31/16 07:33 Labs: Abnormal Lab Results - Last 24 Hours (Table) 03/30/16 03/30/16 03/31/16 Range/Units 17:03 21:13 07:14 WBC (3.8-10.6) k/uL Hct (34.0-46.0) % MCV (80.0-100.0) fL MCHC (31.0-37.0) g/dL Neutrophils # (1.3-7.7) k/uL Lymphocytes # (1.0-4.8) k/uL Potassium (3.5-5.1) mmol/L Carbon Dioxide (22-30) mmol/L BUN (7-17) mg/dL Glucose (74-99) mg/dL POC Glucose (mg/dL) 152 H 140 H 117 H (75-99) mg/dL AST (14-36) U/L ALT (9-52) U/L Total Protein (6.3-8.2) g/dL Albumin (3.5-5.0) g/dL 03/31/16 03/31/16 03/31/16 Range/Units 07:33 07:37 12:16 WBC 12.4 H (3.8-10.6) k/uL Hct 46.8 H (34.0-46.0) % MCV 101.9 H (80.0-100.0) fL MCHC 30.4 L (31.0-37.0) g/dL Neutrophils # 11.6 H (1.3-7.7) k/uL Lymphocytes # 0.3 L (1.0-4.8) k/uL Potassium 5.2 H (3.5-5.1) mmol/L Carbon Dioxide 34 H (22-30) mmol/L BUN 25 H (7-17) mg/dL Glucose 132 H (74-99) mg/dL POC Glucose (mg/dL) 102 H (75-99) mg/dL AST 63 H (14-36) U/L ALT 91 H (9-52) U/L Total Protein 5.8 L (6.3-8.2) g/dL Albumin 3.2 L (3.5-5.0) g/dL Microbiology - Last 24 Hours (Table) 03/29/16 05:15 Gram Stain - Final Sputum Sputum Culture - Final Mary albicans Assessment and Plan Plan: #1 acute hypoxic respiratory failure secondary to a left lower lobe pneumonia causing a COPD exacerbation in a patient with advanced COPD #2 sepsis secondary to above #3 hyperkalemia #4 elevated hemoglobin likely secondary to chronic hypoxia #5 history of hypertension #6 oral thrush Plan Continue ongoing care will need another 24-48 hrs of inpatient tx. O2 as needed empiric abx to treat HCAP. Nystatin 50,000 units 4 times a day to treat oral thrush.
[2016-03-31 17:14] LABS: Glucose,Whole Blood 100 mg/dL (75-99)
[2016-03-31] MEDS: NYSTATIN 100,000 UNIT/ML SUSP 500,000 UNIT/5 ML CUP PO SCH ×2 (17:14→22:32)
[2016-03-31] MEDS: THEOPHYLLINE 24 HOUR 200 MG CAP.ER.24H PO SCH (20:54)
[2016-03-31 21:20] LABS: Glucose,Whole Blood 145 mg/dL (75-99)
[2016-04-01] MEDS: methylPREDNISolone SOD SUCCI 125 MG/2 ML VIAL IV SCH ×4 (05:40→23:31)
[2016-04-01 07:25] LABS: Glucose,Whole Blood 127 mg/dL (75-99)
[2016-04-01] MEDS: INSULIN LISPRO (humaLOG) 300 UNIT/3 ML VIAL SQ SCH ×4 (07:42→20:39)
[2016-04-01] MEDS: PIPERACILLIN-TAZOBACTAM 3.375 GM in DEXTROSE/WATER 1 50ML.BAG IVPB SCH ×3 (07:59→23:31)
[2016-04-01] MEDS: HEPARIN SODIUM,PORCINE 5,000 UNIT/ML 1 ML VIAL SQ SCH ×3 (07:59→23:31)
[2016-04-01] MEDS: ALPRAZolam 0.5 MG TAB PO PRN ×3 (08:00→23:31)
[2016-04-01] MEDS: ASPIRIN 81 MG CHEW PO SCH (08:00)
[2016-04-01] MEDS: METOPROLOL SUCCINATE (ER) 25 MG TAB.ER.24H PO SCH (08:01)
[2016-04-01] MEDS: NYSTATIN 100,000 UNIT/ML SUSP 500,000 UNIT/5 ML CUP PO SCH ×4 (08:01→21:55)
[2016-04-01] MEDS: IPRATROPIUM-ALBUTEROL 3 ML NEB INHALATION SCH ×4 (09:09→20:14)
[2016-04-01] MEDS: FORMOTEROL FUMARATE 20 MCG/2 ML NEBU INHALATION SCH ×2 (09:09→20:13)
[2016-04-01] MEDS: BUDESONIDE 1 MG/2 ML NEBU INHALATION SCH ×2 (09:09→20:13)
[2016-04-01 09:13] LABS: Basophils % (A) 0 %; CH 31.1; Eosinophils % (A) 0 %; HCT 43.1 % (34.0-46.0); HDW 2.05; HGB 13.2 gm/dL (11.4-16.0); Luc # (Auto) 0.07; Luc % (Auto) 1; Lymphocytes # (A) 0.2 k/uL (1.0-4.8); Lymphocytes % (A) 2 %; MCH 30.9 pg (25.0-35.0); MCHC 30.7 g/dL (31.0-37.0); MCV 100.7 fL (80.0-100.0); Monocytes # (A) 0.4 k/uL (0-1.0); Monocytes % (A) 4 %; Neutrophils # (A) 8.9 k/uL (1.3-7.7); Neutrophils % (A) 93 %; RBC 4.28 m/uL (3.80-5.40); RDW 12.9 % (11.5-15.5); WBC 9.6 k/uL (3.8-10.6); WBC (Perox) 10.39
[2016-04-01 09:25] LABS: ALT 100 U/L (9-52); AST 49 U/L (14-36); Alkaline Phosphatase 70 U/L (38-126); Anion Gap 7 mmol/L; Blood Urea Nitrogen 24 mg/dL (7-17); Calcium 8.8 mg/dL (8.4-10.2); Carbon Dioxide 35 mmol/L (22-30); Chloride 95 mmol/L (98-107); Glucose 134 mg/dL (74-99); Non-African American GFR(MDRD) >60 (>60 ml/min/1.73 sqM); Potassium 5.1 mmol/L (3.5-5.1); Sodium 137 mmol/L (137-145); Total Bilirubin 0.5 mg/dL (0.2-1.3); Total Protein 5.5 g/dL (6.3-8.2)
[2016-04-01] MEDS: SODIUM CHLORIDE 0.9% 1,000 ML IV SCH ×2 (11:54→20:38)
[2016-04-01] MEDS: MULTIVITAMINS, THERA 1 EACH TAB PO SCH (11:55)
[2016-04-01 12:35] LABS: Glucose,Whole Blood 117 mg/dL (75-99)
[2016-04-01] MEDS: LEVOFLOXACIN 750 MG TAB PO SCH (15:20)
--- NOTE | 2016-04-01 16:27 | P.PN ---
Subjective Pt was admitted to the hosptial with difficulty in breathing. Was noted to have COPD exacerbation. Baseline fev of 25%. Today, states to be slightly improved, cough with no productive sputum is reported. No fevers, chills, n/v, diarrhea. 03/31/2016 Patient was ambulated to the bathroom today patient stated she was able tolerate however got significant short of breath. Patient does have a cough that is mildly productive of sputum. Denies having any fevers chills nausea vomiting at this time. 04/01/2016 States to be more tired today No new overnight events States to have cough with minimal sputum production Objective - Vital Signs Vital signs: Vital Signs Temp 96.1 F L 04/01/16 14:05 Pulse 72 04/01/16 16:18 Resp 20 04/01/16 14:05 BP 156/73 04/01/16 14:05 Pulse Ox 95 04/01/16 14:05 Intake & Output 03/31/16 04/01/16 04/01/16 18:59 06:59 18:59 Intake Total 50 240 Balance 50 240 Weight 51.5 kg Intake: IV 50 Piperacillin-Tazobactam 3 50 .375 gm In Dextrose/Water 1 50ml.bag @ 12.5 mls/hr IVPB Q8HR [facility] Rx#: [id number] Oral 240 Other: Voiding Method Toilet Toilet # Voids 2 2 3 - Exam Gen: alert and oriented times 3 Lungs air movement is appreciated, expiratory wheezing is noted. No rhochi Heart RRR, no murmurs appreciated. Abdomen Soft non tender, no organomegaly. Neuro no focal motor or sensory deficits appreciated. - Labs CBC & Chem 7: 04/01/16 08:13 04/01/16 08:13 Labs: Abnormal Lab Results - Last 24 Hours (Table) 03/31/16 03/31/16 04/01/16 Range/Units 17:12 21:18 07:07 MCV (80.0-100.0) fL MCHC (31.0-37.0) g/dL Neutrophils # (1.3-7.7) k/uL Lymphocytes # (1.0-4.8) k/uL Chloride (98-107) mmol/L Carbon Dioxide (22-30) mmol/L BUN (7-17) mg/dL Creatinine (0.52-1.04) mg/dL Glucose (74-99) mg/dL POC Glucose (mg/dL) 100 H 145 H 127 H (75-99) mg/dL AST (14-36) U/L ALT (9-52) U/L Total Protein (6.3-8.2) g/dL Albumin (3.5-5.0) g/dL 04/01/16 04/01/16 04/01/16 Range/Units 08:13 08:13 12:29 MCV 100.7 H (80.0-100.0) fL MCHC 30.7 L (31.0-37.0) g/dL Neutrophils # 8.9 H (1.3-7.7) k/uL Lymphocytes # 0.2 L (1.0-4.8) k/uL Chloride 95 L (98-107) mmol/L Carbon Dioxide 35 H (22-30) mmol/L BUN 24 H (7-17) mg/dL Creatinine 0.48 L (0.52-1.04) mg/dL Glucose 134 H (74-99) mg/dL POC Glucose (mg/dL) 117 H (75-99) mg/dL AST 49 H (14-36) U/L ALT 100 H (9-52) U/L Total Protein 5.5 L (6.3-8.2) g/dL Albumin 3.1 L (3.5-5.0) g/dL Assessment and Plan Plan: #1 acute hypoxic respiratory failure secondary to a left lower lobe pneumonia causing a COPD exacerbation in a patient with advanced COPD #2 sepsis secondary to above #3 hyperkalemia #4 elevated hemoglobin likely secondary to chronic hypoxia #5 history of hypertension #6 oral thrush Plan Continue ongoing care will need another 24-48 hrs of inpatient tx. O2 as needed empiric abx to treat HCAP. Start chest PT. Nystatin 50,000 units 4 times a day to treat oral thrush.
[2016-04-01 16:52] LABS: Glucose,Whole Blood 115 mg/dL (75-99)
[2016-04-01] MEDS: FUROSEMIDE 10 MG/ML 4 ML VIAL IV SCH (16:54)
--- NOTE | 2016-04-01 17:59 | P.PN ---
Subjective This is a very pleasant 71-year-old female patient who follows with Dr. Cameron is her primary care physician. She also follows in our office for severe advanced obstructive pulmonary disease. Her FEV1 value is 25% of predicted. She was admitted here on 03/28/2016 for an acute exacerbation of her COPD and had failed outpatient treatment. She was also found to have a left lower lobe pulmonary infiltrate/pneumonia. She has been treated with Zosyn and Levaquin while here. She is seen again today 04/01/2016 in follow-up. She is awake and alert in no acute distress. She states she is breathing slightly better today as compared to yesterday but not quite back to her baseline. She denies any worsening shortness of breath, cough or congestion. He is maintaining good O2 saturations in the mid 90s on 3 L/m per nasal cannula. She has episodes of anxiety. She does get dyspneic on minimal exertion. Objective - Vital Signs Vital signs: Vital Signs Temp 96.1 F L 04/01/16 14:05 Pulse 72 04/01/16 16:18 Resp 20 04/01/16 14:05 BP 156/73 04/01/16 14:05 Pulse Ox 95 04/01/16 14:05 Intake & Output 03/31/16 04/01/16 04/01/16 18:59 06:59 18:59 Intake Total 50 240 Balance 50 240 Weight 51.5 kg Intake: IV 50 Piperacillin-Tazobactam 3 50 .375 gm In Dextrose/Water 1 50ml.bag @ 12.5 mls/hr IVPB Q8HR [facility] Rx#: [id number] Oral 240 Other: Voiding Method Toilet Toilet # Voids 2 2 3 - Exam GENERAL EXAM: Alert, comfortable in no apparent distress. HEAD: Normocephalic. EYES: Normal reaction of pupils, equal size. NOSE: Clear with pink turbinates. THROAT: No erythema or exudates. NECK: No masses, no JVD. CHEST: No chest wall deformity. LUNGS: Bilateral end expiratory wheeze. Diminished throughout. CVS: S1 and S2 normal with no audible murmurs, regular rhythm. ABDOMEN: No hepatosplenomegaly, normal bowel sounds, no guarding or rigidity. SPINE: No scoliosis or deformity SKIN: No rashes CENTRAL NERVOUS SYSTEM: No focal deficits, tone is normal in all 4 extremities. Extremities: There is no significant peripheral edema. No clubbing, no cyanosis. Peripheral pulses are intact. - Labs CBC & Chem 7: 04/01/16 08:13 04/01/16 08:13 Labs: Abnormal Lab Results - Last 24 Hours (Table) 03/31/16 04/01/16 04/01/16 Range/Units 21:18 07:07 08:13 MCV 100.7 H (80.0-100.0) fL MCHC 30.7 L (31.0-37.0) g/dL Neutrophils # 8.9 H (1.3-7.7) k/uL Lymphocytes # 0.2 L (1.0-4.8) k/uL Chloride (98-107) mmol/L Carbon Dioxide (22-30) mmol/L BUN (7-17) mg/dL Creatinine (0.52-1.04) mg/dL Glucose (74-99) mg/dL POC Glucose (mg/dL) 145 H 127 H (75-99) mg/dL AST (14-36) U/L ALT (9-52) U/L Total Protein (6.3-8.2) g/dL Albumin (3.5-5.0) g/dL 04/01/16 04/01/16 04/01/16 Range/Units 08:13 12:29 16:44 MCV (80.0-100.0) fL MCHC (31.0-37.0) g/dL Neutrophils # (1.3-7.7) k/uL Lymphocytes # (1.0-4.8) k/uL Chloride 95 L (98-107) mmol/L Carbon Dioxide 35 H (22-30) mmol/L BUN 24 H (7-17) mg/dL Creatinine 0.48 L (0.52-1.04) mg/dL Glucose 134 H (74-99) mg/dL POC Glucose (mg/dL) 117 H 115 H (75-99) mg/dL AST 49 H (14-36) U/L ALT 100 H (9-52) U/L Total Protein 5.5 L (6.3-8.2) g/dL Albumin 3.1 L (3.5-5.0) g/dL Assessment and Plan Plan: Impression: #1 Acute exacerbation of chronic obstructive pulmonary disease, complicated by left lower lobe pneumonia. Failed outpatient therapy. #2 Advanced oxygen-dependent chronic obstructive pulmonary disease, Gold stage IV, FEV1 value 25% of predicted. #3 Acute on chronic hypoxic respiratory failure secondary to above. 4 Chronic nicotine addiction. #5 Leukocytosis secondary to above. #6 Borderline thrombocytopenia. Plan: The patient was seen and evaluated by Dr. Johnson. Her lung sounds are revealing better aeration. She still not quite back to her baseline. The patient is slow to progress and we will increase her activity as tolerated. We' ll continue with her current medications. She remains on antibiotics in form of Zosyn and Levaquin. We'll continue with her bronchodilators. She is on Lasix daily as well. We'll continue to follow make further recommendations based on her clinical status.
[2016-04-01] MEDS: THEOPHYLLINE 24 HOUR 200 MG CAP.ER.24H PO SCH (20:39)
[2016-04-01 20:53] LABS: Glucose,Whole Blood 120 mg/dL (75-99)
[2016-04-02] MEDS: SODIUM CHLORIDE 0.9% 1,000 ML IV SCH ×2 (06:18→15:20)
[2016-04-02] MEDS: methylPREDNISolone SOD SUCCI 125 MG/2 ML VIAL IV SCH ×4 (06:19→23:24)
[2016-04-02 07:19] LABS: Glucose,Whole Blood 116 mg/dL (75-99)
[2016-04-02] MEDS: INSULIN LISPRO (humaLOG) 300 UNIT/3 ML VIAL SQ SCH ×4 (07:23→20:30)
[2016-04-02] MEDS: ASPIRIN 81 MG CHEW PO SCH (08:10)
[2016-04-02] MEDS: PIPERACILLIN-TAZOBACTAM 3.375 GM in DEXTROSE/WATER 1 50ML.BAG IVPB SCH ×3 (08:10→23:24)
[2016-04-02] MEDS: HEPARIN SODIUM,PORCINE 5,000 UNIT/ML 1 ML VIAL SQ SCH ×3 (08:10→23:53)
[2016-04-02] MEDS: FUROSEMIDE 10 MG/ML 4 ML VIAL IV SCH (08:10)
[2016-04-02] MEDS: ALPRAZolam 0.5 MG TAB PO PRN ×3 (08:11→23:30)
[2016-04-02] MEDS: NYSTATIN 100,000 UNIT/ML SUSP 500,000 UNIT/5 ML CUP PO SCH ×4 (08:11→21:49)
[2016-04-02] MEDS: METOPROLOL SUCCINATE (ER) 25 MG TAB.ER.24H PO SCH (08:11)
[2016-04-02] MEDS: IPRATROPIUM-ALBUTEROL 3 ML NEB INHALATION SCH ×4 (08:33→19:00)
[2016-04-02] MEDS: BUDESONIDE 1 MG/2 ML NEBU INHALATION SCH ×2 (08:33→19:00)
[2016-04-02] MEDS: FORMOTEROL FUMARATE 20 MCG/2 ML NEBU INHALATION SCH ×2 (08:33→19:00)
[2016-04-02 09:03] LABS: CH 30.8; CHCM 30.8; HDW 2.03; HGB 14.9 gm/dL (11.4-16.0); MCH 31.2 pg (25.0-35.0); MCHC 31.1 g/dL (31.0-37.0); MCV 100.3 fL (80.0-100.0); RBC 4.79 m/uL (3.80-5.40); RDW 12.8 % (11.5-15.5)
[2016-04-02 09:14] LABS: Anion Gap 12 mmol/L; Blood Urea Nitrogen 24 mg/dL (7-17); Calcium 9.3 mg/dL (8.4-10.2); Carbon Dioxide 38 mmol/L (22-30); Chloride 87 mmol/L (98-107); Glucose 198 mg/dL (74-99); Non-African American GFR(MDRD) >60 (>60 ml/min/1.73 sqM); Potassium 4.8 mmol/L (3.5-5.1); Sodium 137 mmol/L (137-145)
[2016-04-02 12:20] LABS: Glucose,Whole Blood 105 mg/dL (75-99)
[2016-04-02] MEDS: MULTIVITAMINS, THERA 1 EACH TAB PO SCH (12:20)
[2016-04-02] MEDS ORDERED: FUROSEMIDE 10 MG/ML 2 ML VIAL IV ONE (13:41)
--- NOTE | 2016-04-02 14:06 | CDI ---
In responding to this query, please exercise your independent professional judgment. The [facility] Coding Staff and Clinical Documentation Specialists appreciate your assistance in clarifying documentation, maintaining compliance with coding guidelines, accurately documenting patients condition and capturing severity of illness. The fact that a question is asked does not imply that any particular answer is desired or expected. Communication forms are a method of clarifying documentation and are not made part of the Legal Health Record. Thank you in advance for your clarification. Last Revision, January 2015 Fartun [address] [facility] [place] [address] Documentation Clarification Form 2nd request Date: 03/31/2016 4:49:00 PM From: Anayeli Del Rio RN, CCDS Admit Date: 03/28/2016 4:03:00 PM Patient Name: Xochitl Maldonado Visit Number: [id number] Dr. Oneal Pneumonia was documented in your notes History/Risk Factors: CHF, COPD, HTN Clinical Indicators: Left lower lobe pneumonia failed outpatient treatment WBC 19.1/17.4/12.4 Left shift: 16.8/16.4/11.6 03/28 CXR: " COPD and pulmonary fibrosis. There is no pneumonic consolidation in the lateral left lower lobe compared to last exam and most likely related to bronchopneumonia. Follow-up is recommended to show clearing." 03/29 Pulmonary Lung/Breathing assessment: "Lung sounds are diminished bilaterally. The patient is a barrel chest. There is diffuse expiratory wheezes throughout the lung is bilaterally. There is scattered rhonchi also heard throughout the lung wilkinson bilaterally." Treatment: Antibiotics: Zosyn 3.375 MG IVPB Q 8 hrs O2: 100% NRB decreased to 5L, then 3L NC Breathing Tx: Duoneb QID and Q 2 hrs PRN In order to capture the severity of condition, please clarify if the condition signifies and you are treating for: Aspiration Pneumonia, identify if: Due to solids or liquids Bacterial Pneumonia, specify causal organism (if known) Gram Negative Pneumonia Due to Strep Due to Staph Due to E. Coli Other bacteria (specify) Viral Pneumonia, specify casual organism (if known) Ventilator Associated Pneumonia Healthcare Acquired Pneumonia/Pneumonia, unspecified Unable to determine Link any associated conditions to the pneumonia: Influenza with secondary gram negative pneumonia Sepsis due to pneumonia Acute respiratory failure due to pneumonia Other, please specify Please document in your progress notes and discharge summary in order to capture severity of illness and risk of mortality. Include clinical findings that support your diagnosis. FYI: Press F11 to launch patient chart. __x___ Place X here if this finding has no clinical significance, is not applicable or if you are not able to provide any additional documentation. No pneumonia just bronchitis causing hypoxic failure due to asthma exacerbation MTDD
[2016-04-02 14:56] VITALS: BMI 17.9
[2016-04-02] MEDS: LEVOFLOXACIN 750 MG TAB PO SCH (15:19)
--- NOTE | 2016-04-02 15:19 | P.PN ---
Subjective This is a very pleasant 71-year-old female patient who follows with Dr. Cameron is her primary care physician. She also follows in our office for severe advanced obstructive pulmonary disease. Her FEV1 value is 25% of predicted. She was admitted here on 03/28/2016 for an acute exacerbation of her COPD and had failed outpatient treatment. She was also found to have a left lower lobe pulmonary infiltrate/pneumonia. She has been treated with Zosyn and Levaquin while here. She is seen again today 04/02/2016 in follow-up. She is awake and alert in no acute distress. She states she is breathing slightly better today as compared to yesterday but not quite back to her baseline. She denies any worsening shortness of breath, cough or congestion. He is maintaining good O2 saturations in the mid 90s on 3 L/m per nasal cannula. She is tolerating a little bit more activity with less shortness of breath. She is maintained on Solu-Medrol 60 mg every 6 hours still along with her bronchodilators. She was diuresed yesterday and is feeling less bloated and full. Objective - Vital Signs Vital signs: Vital Signs Temp 97.4 F L 04/02/16 07:00 Pulse 86 04/02/16 15:09 Resp 20 04/02/16 09:05 BP 138/78 04/02/16 07:00 Pulse Ox 92 L 04/02/16 09:05 Intake & Output 04/01/16 04/02/16 04/02/16 18:59 06:59 18:59 Intake Total 480 500 750 Balance 480 500 750 Weight 49 kg 49 kg Intake: Oral 480 500 750 Other: Voiding Method Toilet Toilet Toilet # Voids 3 2 1 - Exam GENERAL EXAM: Alert, comfortable in no apparent distress. HEAD: Normocephalic. EYES: Normal reaction of pupils, equal size. NOSE: Clear with pink turbinates. THROAT: No erythema or exudates. NECK: No masses, no JVD. CHEST: No chest wall deformity. LUNGS: Bilateral end expiratory wheeze. Diminished throughout. CVS: S1 and S2 normal with no audible murmurs, regular rhythm. ABDOMEN: No hepatosplenomegaly, normal bowel sounds, no guarding or rigidity. SPINE: No scoliosis or deformity SKIN: No rashes CENTRAL NERVOUS SYSTEM: No focal deficits, tone is normal in all 4 extremities. Extremities: There is no significant peripheral edema. No clubbing, no cyanosis. Peripheral pulses are intact. - Labs CBC & Chem 7: 04/02/16 08:23 04/02/16 08:23 Labs: Abnormal Lab Results - Last 24 Hours (Table) 04/01/16 04/01/16 04/02/16 Range/Units 16:44 20:37 07:03 Hct (34.0-46.0) % MCV (80.0-100.0) fL Chloride (98-107) mmol/L Carbon Dioxide (22-30) mmol/L BUN (7-17) mg/dL Glucose (74-99) mg/dL POC Glucose (mg/dL) 115 H 120 H 116 H (75-99) mg/dL 04/02/16 04/02/16 04/02/16 Range/Units 08:23 08:23 12:18 Hct 48.0 H (34.0-46.0) % MCV 100.3 H (80.0-100.0) fL Chloride 87 L (98-107) mmol/L Carbon Dioxide 38 H (22-30) mmol/L BUN 24 H (7-17) mg/dL Glucose 198 H (74-99) mg/dL POC Glucose (mg/dL) 105 H (75-99) mg/dL Assessment and Plan Plan: Impression: #1 Acute exacerbation of chronic obstructive pulmonary disease, complicated by left lower lobe pneumonia. Failed outpatient therapy. #2 Advanced oxygen-dependent chronic obstructive pulmonary disease, Gold stage IV, FEV1 value 25% of predicted. #3 Acute on chronic hypoxic respiratory failure secondary to above. 4 Chronic nicotine addiction. #5 Leukocytosis secondary to above. #6 Borderline thrombocytopenia. Plan: The patient was seen and evaluated by Dr. Johnson. She is now starting to feel better and tolerating more activity with less dyspnea. We'll give an additional dose of Lasix today. We'll keep her another 24 hours. We'll continue with her pulmonary medications. We will increase her activity as tolerated. We'll continue to follow make further recommendations based on her clinical status.
[2016-04-02] MEDS: ACETAMINOPHEN TAB 325 MG TAB PO PRN (15:28)
--- NOTE | 2016-04-02 15:53 | P.PN ---
Subjective Pt was admitted to the hosptial with difficulty in breathing. Was noted to have COPD exacerbation. Baseline fev of 25%. Today, states to be slightly improved, cough with no productive sputum is reported. No fevers, chills, n/v, diarrhea. 03/31/2016 Patient was ambulated to the bathroom today patient stated she was able tolerate however got significant short of breath. Patient does have a cough that is mildly productive of sputum. Denies having any fevers chills nausea vomiting at this time. 04/01/2016 States to be more tired today No new overnight events States to have cough with minimal sputum production 04/02/16 appears to be doing well. Continues to have a cough, non productive in nature. No fevers, chills, nausea, vomiting. Objective - Vital Signs Vital signs: Vital Signs Temp 97.4 F L 04/02/16 15:00 Pulse 86 04/02/16 15:23 Resp 16 04/02/16 15:00 BP 130/77 04/02/16 15:00 Pulse Ox 95 04/02/16 15:00 Intake & Output 04/01/16 04/02/16 04/02/16 18:59 06:59 18:59 Intake Total 773 906 9308 Balance 870 572 5250 Weight 49 kg 49 kg Intake: Oral 965 255 3938 Other: Voiding Method Toilet Toilet Toilet # Voids 3 2 1 - Exam Gen: alert and oriented times 3 Lungs air movement is appreciated, expiratory wheezing is noted. No rhochi Heart RRR, no murmurs appreciated. Abdomen Soft non tender, no organomegaly. Neuro no focal motor or sensory deficits appreciated. - Labs CBC & Chem 7: 04/02/16 08:23 04/02/16 08:23 Labs: Abnormal Lab Results - Last 24 Hours (Table) 04/01/16 04/01/16 04/02/16 Range/Units 16:44 20:37 07:03 Hct (34.0-46.0) % MCV (80.0-100.0) fL Chloride (98-107) mmol/L Carbon Dioxide (22-30) mmol/L BUN (7-17) mg/dL Glucose (74-99) mg/dL POC Glucose (mg/dL) 115 H 120 H 116 H (75-99) mg/dL 04/02/16 04/02/16 04/02/16 Range/Units 08:23 08:23 12:18 Hct 48.0 H (34.0-46.0) % MCV 100.3 H (80.0-100.0) fL Chloride 87 L (98-107) mmol/L Carbon Dioxide 38 H (22-30) mmol/L BUN 24 H (7-17) mg/dL Glucose 198 H (74-99) mg/dL POC Glucose (mg/dL) 105 H (75-99) mg/dL Assessment and Plan Plan: #1 acute hypoxic respiratory failure secondary to a left lower lobe pneumonia causing a COPD exacerbation in a patient with advanced COPD #2 sepsis secondary to above #3 hyperkalemia #4 elevated hemoglobin likely secondary to chronic hypoxia #5 history of hypertension #6 oral thrush Plan Continue ongoing care, improving. will need another 24-48 hrs of inpatient tx. O2 as needed empiric abx to treat HCAP. Start chest PT. Nystatin 50,000 units 4 times a day to treat oral thrush.
[2016-04-02 17:07] LABS: Glucose,Whole Blood 107 mg/dL (75-99)
[2016-04-02 20:27] LABS: Glucose,Whole Blood 156 mg/dL (75-99)
[2016-04-02] MEDS: THEOPHYLLINE 24 HOUR 200 MG CAP.ER.24H PO SCH (20:31)
[2016-04-03] MEDS: SODIUM CHLORIDE 0.9% 1,000 ML IV SCH ×4 (01:47→16:55)
[2016-04-03] MEDS: ACETAMINOPHEN TAB 325 MG TAB PO PRN (02:01)
[2016-04-03] MEDS: methylPREDNISolone SOD SUCCI 125 MG/2 ML VIAL IV SCH (06:24)
[2016-04-03 07:28] LABS: Glucose,Whole Blood 109 mg/dL (75-99)
[2016-04-03 07:33] VITALS: RESP 16
[2016-04-03] MEDS: INSULIN LISPRO (humaLOG) 300 UNIT/3 ML VIAL SQ SCH ×2 (08:11→13:07)
[2016-04-03] MEDS: PIPERACILLIN-TAZOBACTAM 3.375 GM in DEXTROSE/WATER 1 50ML.BAG IVPB SCH (08:21)
[2016-04-03] MEDS: NYSTATIN 100,000 UNIT/ML SUSP 500,000 UNIT/5 ML CUP PO SCH ×2 (08:21→13:07)
[2016-04-03] MEDS: FUROSEMIDE 10 MG/ML 4 ML VIAL IV SCH (08:21)
[2016-04-03] MEDS: ASPIRIN 81 MG CHEW PO SCH (08:22)
[2016-04-03] MEDS: METOPROLOL SUCCINATE (ER) 25 MG TAB.ER.24H PO SCH (08:22)
[2016-04-03] MEDS: ALPRAZolam 0.5 MG TAB PO PRN ×2 (08:22→16:57)
[2016-04-03] MEDS: HEPARIN SODIUM,PORCINE 5,000 UNIT/ML 1 ML VIAL SQ SCH ×2 (08:30→16:55)
[2016-04-03] MEDS: IPRATROPIUM-ALBUTEROL 3 ML NEB INHALATION SCH ×3 (08:34→15:47)
[2016-04-03] MEDS: BUDESONIDE 1 MG/2 ML NEBU INHALATION SCH (08:34)
[2016-04-03] MEDS: FORMOTEROL FUMARATE 20 MCG/2 ML NEBU INHALATION SCH (08:34)
[2016-04-03] MEDS ORDERED: predniSONE 20 MG TAB PO SCH (11:45)
[2016-04-03 11:59] LABS: Glucose,Whole Blood 120 mg/dL (75-99)
--- NOTE | 2016-04-03 12:20 | P.PN ---
Subjective This is a very pleasant 71-year-old female patient who follows with Dr. Cameron is her primary care physician. She also follows in our office for severe advanced obstructive pulmonary disease. Her FEV1 value is 25% of predicted. She was admitted here on 03/28/2016 for an acute exacerbation of her COPD and had failed outpatient treatment. She was also found to have a left lower lobe pulmonary infiltrate/pneumonia. She has been treated with Zosyn and Levaquin while here. She is seen again today 04/03/2016 in follow-up. She is feeling more back to her baseline. Unfortunately her baseline is quite limited secondary to the severity of her COPD. She does get dyspneic with exertion. She is maintaining O2 saturations in the mid 90s on 3 L/m per nasal cannula. She remains afebrile. She is anxious to go home. Objective - Vital Signs Vital signs: Vital Signs Temp 97.9 F 04/03/16 07:00 Pulse 96 04/03/16 09:03 Resp 16 04/03/16 07:00 BP 134/78 04/03/16 07:00 Pulse Ox 83 L 04/03/16 08:00 Intake & Output 04/02/16 04/03/16 04/03/16 18:59 06:59 18:59 Intake Total 1500 850 Balance 1500 850 Weight 49 kg 47.5 kg Intake: Oral 1500 850 Other: Voiding Method Toilet Toilet # Voids 1 4 - Exam GENERAL EXAM: Alert, comfortable in no apparent distress. HEAD: Normocephalic. EYES: Normal reaction of pupils, equal size. NOSE: Clear with pink turbinates. THROAT: No erythema or exudates. NECK: No masses, no JVD. CHEST: No chest wall deformity. LUNGS: Bilateral end expiratory wheeze. Diminished throughout. CVS: S1 and S2 normal with no audible murmurs, regular rhythm. ABDOMEN: No hepatosplenomegaly, normal bowel sounds, no guarding or rigidity. SPINE: No scoliosis or deformity SKIN: No rashes CENTRAL NERVOUS SYSTEM: No focal deficits, tone is normal in all 4 extremities. Extremities: There is no significant peripheral edema. No clubbing, no cyanosis. Peripheral pulses are intact. - Labs CBC & Chem 7: 04/02/16 08:23 04/02/16 08:23 Labs: Abnormal Lab Results - Last 24 Hours (Table) 04/02/16 04/02/16 04/02/16 Range/Units 12:18 17:00 20:24 POC Glucose (mg/dL) 105 H 107 H 156 H (75-99) mg/dL 04/03/16 04/03/16 Range/Units 07:27 11:57 POC Glucose (mg/dL) 109 H 120 H (75-99) mg/dL Assessment and Plan Plan: Impression: #1 Acute exacerbation of chronic obstructive pulmonary disease, complicated by left lower lobe pneumonia. Failed outpatient therapy. #2 Advanced oxygen-dependent chronic obstructive pulmonary disease, Gold stage IV, FEV1 value 25% of predicted. #3 Acute on chronic hypoxic respiratory failure secondary to above. #4 Chronic nicotine addiction. #5 Leukocytosis secondary to above. #6 Borderline thrombocytopenia. Plan: The patient was seen and evaluated by Dr. Johnson. She is now starting to feel better and tolerating more activity with less dyspnea. She received an additional dose of Lasix yesterday. We'll continue with her pulmonary medications. We will increase her activity as tolerated. We will continue her course of antibiotics and a prednisone taper. She is cleared for discharge from the pulmonary standpoint. She'll follow-up with Dr. Estrada in our office next week.
[2016-04-03] MEDS: MULTIVITAMINS, THERA 1 EACH TAB PO SCH (13:06)
[2016-04-03 15:22] VITALS: BP 142/65; TEMP 97.8
[2016-04-03] MEDS ORDERED: INFLUENZA VACCINE (3YR+) 60 MCG/0.5 ML SYRINGE IM ONE (15:42)
--- NOTE | 2016-04-03 16:04 | P.DS ---
Providers Date of admission: 03/28/16 16:03 Expected date of discharge: 04/03/16 Attending physician: Nate Dean Primary care physician: [facility] Course: Subjective Pt was admitted to the hosptial with difficulty in breathing. Was noted to have COPD exacerbation. Baseline fev of 25%. Today, states to be slightly improved, cough with no productive sputum is reported. No fevers, chills, n/v, diarrhea. 03/31/2016 Patient was ambulated to the bathroom today patient stated she was able tolerate however got significant short of breath. Patient does have a cough that is mildly productive of sputum. Denies having any fevers chills nausea vomiting at this time. 04/01/2016 States to be more tired today No new overnight events States to have cough with minimal sputum production 04/02/16 appears to be doing well. Continues to have a cough, non productive in nature. No fevers, chills, nausea, vomiting. 04/03/2016. States to be doing well. Continues to have a cough that is nonproductive in nature. However is able to ambulate. States he is close to baseline. Is able to tolerate diet. - Exam Gen: alert and oriented times 3 Lungs air movement is appreciated, expiratory wheezing is noted. No rhochi Heart RRR, no murmurs appreciated. Abdomen Soft non tender, no organomegaly. Neuro no focal motor or sensory deficits appreciated. - Labs CBC & Chem 7: Assessment and Plan Plan: #1 acute hypoxic respiratory failure secondary to a left lower lobe pneumonia causing a COPD exacerbation in a patient with advanced COPD #2 sepsis secondary to above #3 hyperkalemia #4 elevated hemoglobin likely secondary to chronic hypoxia #5 history of hypertension #6 oral thrush Patient improved during the hospital physician. Patient will be discharged home on a taper over 12 days. Patient is to continue breathing treatments. Patient is to continue a course of antibiotics for another 5 days. And was also hypoxic during the admission. Patient will be discharged on home oxygen. Which will be set up. Patient Condition at Discharge: Stable Plan - Discharge Summary New Discharge Prescriptions: Budesonide [Pulmicort] 1 mg INHALATION RT-BID 10 Days Levofloxacin [Levaquin] 750 mg PO DAILY@1600 #5 tab predniSONE 20 mg PO DIRECTED #30 tab Discharge Medication List ALPRAZolam [Xanax] 0.5 mg PO TID PRN 01/08/17 [History] Aspirin 81 mg PO DAILY 03/28/16 [History] Calcium Carbonate/Vitamin D3 [Calcium 500-Vit D3 600 Tablet] 1 tab PO DAILY 11/04 [History] Fluticasone Furoate [Veramyst] 10 gm NASAL DAILY PRN 03/28/16 [History] Fluticasone/Salmeterol [Advair 500-50 Diskus] 1 inhalation PO RT-BID 03/28/16 [ History] Ipratropium/Albuterol Sulfate [Combivent Respimat Inhaler] 1 - 2 puff INHALATION RT-QID 03/28/16 [History] Losartan [Cozaar] 50 mg PO DAILY 03/28/16 [History] Metoprolol Succinate [Toprol XL] 25 mg PO DAILY 03/28/16 [History] Multivitamins, Thera [Multivitamin] 1 tab PO DAILY 03/28/16 [History] Theophylline 24 Hour [Ruben-24] 200 mg PO HS 03/28/16 [History] Budesonide [Pulmicort] 1 mg INHALATION RT-BID 10 Days 04/03/16 [Rx] Levofloxacin [Levaquin] 750 mg PO DAILY@1600 #5 tab 04/03/16 [Rx] predniSONE 20 mg PO DIRECTED #30 tab 04/03/16 [Rx] Follow up Appointment(s)/Referral(s): Quinn Cameron III, MD [Primary Care Provider] - 3 Days Carlitos Estrada DO [Doctor of Osteopathic Medicine] - 1 Week Patient Instructions/Handouts: Heart Failure (DC), Pneumonia (DC) Activity/Diet/Wound Care/Special Instructions: Cardiac diet NO smoking, cessation information provided. Discharge Disposition: HOME SELF-CARE
[2016-04-03 16:08] VITALS: PULSE 88
[2016-04-03] MEDS: LEVOFLOXACIN 750 MG TAB PO SCH (16:57)
== END 2016-04-03 17:26 | disposition home or self-care (01) | DRG 871 ==
LOC: EC 12:35 → 4MS4W 16:03
PROVIDERS: ADMIT Hospitalist; ATTEND Hospitalist
PROC: 3E0234Z Introduction of Serum, Toxoid and Vaccine into Muscle, Percutaneous Approach (ICD-10-PCS; principal; 2016-04-03)
DX: A41.9 Sepsis, unspecified organism (principal); J96.21 Acute and chronic respiratory failure with hypoxia; J44.0 Chronic obstructive pulmonary disease with (acute) lower respiratory infection; J45.901 Unspecified asthma with (acute) exacerbation; J44.1 Chronic obstructive pulmonary disease with (acute) exacerbation; B37.0 Candidal stomatitis; I11.0 Hypertensive heart disease with heart failure; D69.6 Thrombocytopenia, unspecified; I50.9 Heart failure, unspecified; E87.5 Hyperkalemia; J40 Bronchitis, not specified as acute or chronic; Z23 Encounter for immunization; F41.9 Anxiety disorder, unspecified; F32.9 Major depressive disorder, single episode, unspecified; F17.210 Nicotine dependence, cigarettes, uncomplicated; Z98.51 Tubal ligation status; Z98.42 Cataract extraction status, left eye; Z98.41 Cataract extraction status, right eye; Z79.82 Long term (current) use of aspirin; Z79.51 Long term (current) use of inhaled steroids; Z79.899 Other long term (current) drug therapy
CPT/HCPCS: 36415; 71020; 80048; 80053; 82550; 82553; 83036; 83605; 83735; 83880; 84484; 85025; 85027; 85610; 85730; 87040; 87070; 87205; 90686; 93005; 94640; 94667; 94760; 96365; 96367; 99291

== ENCOUNTER 2016-06-08 10:57 | Day surgery (SDC) | payer MEDICARE ==
[2016-06-07 08:29] VITALS: BMI 18.9
[~2016-06-08 10:57] MED LIST: ALBUTEROL NEB (CONC) 2.5 MG/0.5 ML INHALATION ONE; ATROPINE SULFATE 0.4 MG/ML 1 ML VIAL IM ONE; LACTATED RINGERS 1,000 ML IV ONE; LACTATED RINGERS 1,000 ML IV SCH; LIDOCAINE 1% 20 ML VIAL (10MG/ML) FOR IV START INTRADERMA PRN; LIDOCAINE 2% (PF) 20 MG/ML 10ML INHALATION ONE; Pre Op ABX Message 1 EACH MISC MISCELLANE ONE
[2016-06-08 11:48] VITALS: TEMP 97.4
[2016-06-08 12:11] LABS: Glucose,Whole Blood 82 mg/dL (75-99)
[2016-06-08] MEDS ORDERED: LIDOCAINE 1% INJ 10MG/ML (20 ML MDV) ONE (12:14)
[2016-06-08] MEDS ORDERED: PROPOFOL 10 MG/ML 20 ML VIAL IV ONE (12:14)
[2016-06-08] MEDS ORDERED: LIDOCAINE 2% INJ 20 MG/ML INTRATRACH ONE (12:29)
[2016-06-08] MEDS ORDERED: MIDAZOLAM 2 MG/2 ML VIAL IV ONE (12:53)
[2016-06-08] MEDS ORDERED: ALBUTEROL NEBULIZED 2.5 MG/3 ML INHALATION STA (13:09)
[2016-06-08 13:19] VITALS: BP 114/74; RESP 20
[2016-06-08 13:58] VITALS: PULSE 88
--- NOTE | 2016-06-08 23:44 | PCN ---
DATE OF PROCEDURE: PROCEDURE: Bronchoscopy, airway examination, therapeutic lavage, BAL right middle lobe, brushings lateral wall, distal right mainstem. PREOPERATIVE DIAGNOSIS: Retained secretions, chronic obstructive pulmonary disease. POSTOPERATIVE DIAGNOSIS: Retained secretions, chronic obstructive pulmonary disease, plus suspicious lesion, lateral wall, distal right mainstem. The procedure was done in Room #2. Paxton Gardner CRNA, provided unconscious sedation and general anesthesia. After the patient was adequately sedated and being fully monitored, the bronchoscope was inserted through the right nostril. It passed through the right nasopharynx into the oropharynx. The hypopharynx was identified. The anterior commissure, true cords, false cords, arytenoids, piriform sinuses, right and left valleculae all appeared normal. After topicalization, the bronchoscope was pushed through the glottic opening into the trachea. Trachea appeared relatively normal. There were secretions noted throughout the distal trachea. Tracheal kallie was sharp. There was mucous ( ) saddling over the tracheal kallie. The right and left mainstem were topicalized. The left upper lobe and its 2 segments, the lingula and its 2 segments, and the left lower lobe and its 4 segments had significant thick yellow-green secretions. They were suctioned with some difficulty. There was some mucosal erythema and hyperemia. On the right side, likewise, there were similar findings of diffuse erythema and hyperemia. There was diffuse bronchitis and mucosal friability. The right upper lobe and its 3 segments, the right middle lobe and its 2 segments, the right lower lobe and its 5 segments were all found to have thick yellow-green secretions. They were suctioned. Next the bronchoscope was wedged into the right middle lobe. BAL took place. The patient tolerated this well. Finally, there was a suspicious lesion noted on the lateral wall of the distal right mainstem. It was brushed. It may be cancer. This will be sent for cytology. The patient tolerated the procedure well. Additional saline flushes were used to remove additional secretions and the bronchoscope was withdrawn. The patient will be recovered.
== END 2016-06-08 13:48 | disposition home or self-care (01) ==
LOC: ORWHC2ENDO 10:57
PROVIDERS: ATTEND Internal Medicine Critical Care Medicine
DX: J44.9 Chronic obstructive pulmonary disease, unspecified (principal); R91.1 Solitary pulmonary nodule; J81.1 Chronic pulmonary edema; I10 Essential (primary) hypertension; F17.200 Nicotine dependence, unspecified, uncomplicated; I50.9 Heart failure, unspecified; Z79.82 Long term (current) use of aspirin; Z79.51 Long term (current) use of inhaled steroids; Z79.899 Other long term (current) drug therapy; Z79.52 Long term (current) use of systemic steroids
CPT/HCPCS: 94640 ×2; 87798 ×4; 87496; 87498; 87529; 88104; 88108; 88305; 87252; 87502; 87070; 87205; 87116; 87102; 87077; 87186; 87206; 31623; 31624; J2001 ×3; J2250; J0461; J2704

== ENCOUNTER 2016-06-09 11:07 | Inpatient (IN) | payer MEDICARE ==
[2016-06-09] MEDS ORDERED: methylPREDNISolone SOD SUCCI 125 MG/2 ML VIAL IV STA (11:54)
[2016-06-09] MEDS ORDERED: ACETAMINOPHEN TAB 500 MG TAB PO STA (11:55)
[2016-06-09] MEDS ORDERED: ALBUTEROL NEBULIZED 7.5 MG, IPRATROPIUM NEBULIZED 0.5 MG, SODIUM CHLORIDE 0.9% NEBULIZ ... INHALATION ONE ×3 (11:56)
[2016-06-09] MEDS ORDERED: IPRATROPIUM 0.5 MG/2.5 ML NEBU INHALATION STA (11:56)
--- NOTE | 2016-06-09 11:58 | ED ---
General Adult HPI - General Chief complaint: Shortness of Breath Stated complaint: KAYLA Time Seen by Provider: 06/09/16 11:35 Source: patient, RN notes reviewed Mode of arrival: wheelchair Limitations: no limitations - History of Present Illness Initial comments: This is a 71-year-old female who presents emergency Department with a past medical history significant for severe COPD. Patient had a bronchoscopy done yesterday. Patient states today her breathing is worse and she is having much more shortness of breath. Patient states she's had some hot and cold spells since chest but she has not taken her temperature. Patient denies any chest pain. Patient denies any palpitations. Patient denies any abdominal pain. Patient denies any nausea vomiting or diarrhea. Patient denies headache patient denies numbness weakness. Patient denies any lightheadedness dizziness or near syncopal episode. - Related Data Home Medications Medication Instructions Recorded Confirmed ALPRAZolam [Xanax] 0.5 mg PO TID PRN 03/28/16 06/09/16 Aspirin 81 mg PO DAILY 03/28/16 06/09/16 Calcium Carbonate/Vitamin D3 1 tab PO DAILY 03/28/16 06/09/16 [Calcium 500-Vit D3 600 Tablet] Fluticasone/Salmeterol [Advair 1 puff INHALATION RT-BID 03/28/16 06/09/16 500-50 Diskus] Ipratropium/Albuterol Sulfate 1 - 2 puff INHALATION RT-QID 03/28/16 06/09/16 [Combivent Respimat Inhaler] Losartan [Cozaar] 50 mg PO DAILY 03/28/16 06/09/16 Metoprolol Succinate [Toprol XL] 25 mg PO DAILY 03/28/16 06/09/16 Multivitamins, Thera [Multivitamin 1 tab PO DAILY 03/28/16 06/09/16 (formulary)] Theophylline 24 Hour [Ruben-24] 200 mg PO HS 03/28/16 06/09/16 predniSONE 5 mg PO DAILY 06/07/16 06/09/16 Fluticasone Nasal [place] [Flonase 1 spray EA NOSTRIL DAILY 06/09/16 06/09/16 Nasal [place]] Furosemide [Lasix] 20 mg PO Q48H 06/09/16 06/09/16 Glucerna Shake 1 can PO DAILY 06/09/16 06/09/16 Previous Rx's Medication Instructions Recorded Budesonide [Pulmicort] 1 mg INHALATION RT-BID 10 Days 04/03/16 Allergies Allergy/AdvReac Type Severity Reaction Status Date / Time fluconazole [From Diflucan] Allergy Unknown Unknown Verified 06/09/16 12:02 varenicline [From Chantix] Allergy Unknown Rash/Hives Verified 06/09/16 12:02 escitalopram [From Lexapro] AdvReac Unknown Unknown Verified 06/09/16 12:02 Review of Systems ROS Statement: Those systems with pertinent positive or pertinent negative responses have been documented in the HPI. ROS Other: All systems not noted in ROS Statement are negative. Past Medical History Past Medical History: Heart Failure, COPD, Pneumonia Additional Past Medical History / Comment(s): O2 at 3L History of Any Multi-Drug Resistant Organisms: None Reported Past Surgical History: Tonsillectomy, Tubal Ligation Additional Past Surgical History / Comment(s): cataracts sx; bronchoscopy Past Anesthesia/Blood Transfusion Reactions: No Reported Reaction Past Psychological History: Anxiety, Depression Smoking Status: Former smoker Past Alcohol Use History: Occasional Past Drug Use History: None Reported - Past Family History Mother Family Medical History: No Reported History General Exam - General Exam Comments Initial Comments: GENERAL: Patient is well-developed and well-nourished. Patient is nontoxic and well- hydrated and is in mild distress. Patient's temperature orally was 99.7 ENT: Neck is soft and supple. No significant lymphadenopathy is noted. Oropharynx is clear. Moist mucous membranes. Neck has full range of motion without eliciting any pain. EYES: The sclera were anicteric and conjunctiva were pink and moist. Extraocular movements were intact and pupils were equal round and reactive to light. Eyelids were unremarkable. PULMONARY: Patient has decreased breath sounds throughout. Anteriorly there is some expiratory wheezing CARDIOVASCULAR: There is a regular rate and rhythm without any murmurs gallops or rubs. ABDOMEN: Soft and nontender with normal bowel sounds. No palpable organomegaly was noted. There is no palpable pulsatile mass. SKIN: Skin is clear with no lesions or rashes and otherwise unremarkable. NEUROLOGIC: Patient is alert and oriented x3. Cranial nerves II through XII are grossly intact. Motor and sensory are also intact. Normal speech, volume and content. Symmetrical smile. MUSCULOSKELETAL: Normal extremities with adequate strength and full range of motion. No lower extremity swelling or edema. No calf tenderness. LYMPHATICS: No significant lymphadenopathy is noted PSYCHIATRIC: Normal psychiatric evaluation. Normal interpersonal interactions appears functionally intact in deals appropriately with others. No signs of depression. No signs of anxiety. Limitations: no limitations Course Vital Signs 06/09/16 06/09/16 06/09/16 11:34 11:50 12:15 Temperature 98.2 F 99.7 F H Pulse Rate 99 100 90 Respiratory 20 28 H 28 H Rate Blood Pressure 87/52 99/59 103/60 O2 Sat by Pulse 93 L 92 L 94 L Oximetry 06/09/16 06/09/16 12:34 12:50 Temperature Pulse Rate 90 91 Respiratory Rate Blood Pressure O2 Sat by Pulse Oximetry Medical Decision Making - Medical Decision Making EKG shows normal sinus rhythm at 92 bpm OH interval is 122 QRS is 90 QT interval 370 QTC is 467. Patient's EKG shows no ST segment elevation or depression or T wave abnormalities are noted chest x-ray shows right lower lobe pneumonia Started the patient on Levaquin and admitted the patient I counseled pulmonary continue the antibiotics on the floor I continue breathing treatments for the patient as well - Lab Data Result diagrams: 06/09/16 12:05 06/09/16 12:05 Lab Results 06/09/16 06/09/16 06/09/16 Range/Units 12:05 12:05 12:05 WBC 13.7 H (3.8-10.6) k/uL RBC 3.71 L (3.80-5.40) m/uL Hgb 11.8 (11.4-16.0) gm/dL Hct 37.2 (34.0-46.0) % MCV 100.2 H (80.0-100.0) fL MCH 31.8 (25.0-35.0) pg MCHC 31.7 (31.0-37.0) g/dL RDW 13.9 (11.5-15.5) % Plt Count 238 (150-450) k/uL Neutrophils % 90 % Lymphocytes % 3 % Monocytes % 4 % Eosinophils % 1 % Basophils % 0 % Neutrophils # 12.4 H (1.3-7.7) k/uL Lymphocytes # 0.5 L (1.0-4.8) k/uL Monocytes # 0.6 (0-1.0) k/uL Eosinophils # 0.1 (0-0.7) k/uL Basophils # 0.1 (0-0.2) k/uL PT (9.0-12.0) sec INR (<1.1) APTT (22.0-30.0) sec Sodium 137 (137-145) mmol/L Potassium 4.1 (3.5-5.1) mmol/L Chloride 98 (98-107) mmol/L Carbon Dioxide 32 H (22-30) mmol/L Anion Gap 7 mmol/L BUN 16 (7-17) mg/dL Creatinine 0.40 L (0.52-1.04) mg/dL Est GFR (MDRD) Af Amer >60 (>60 ml/min/1.73 sqM) Est GFR (MDRD) Non-Af >60 (>60 ml/min/1.73 sqM) Glucose 121 H (74-99) mg/dL Plasma Lactic Acid Rupesh (0.7-2.0) mmol/L Calcium 9.6 (8.4-10.2) mg/dL Magnesium 1.9 (1.6-2.3) mg/dL Total Bilirubin 0.8 (0.2-1.3) mg/dL AST 25 (14-36) U/L ALT 34 (9-52) U/L Alkaline Phosphatase 96 (38-126) U/L Total Creatine Kinase 48 (30-135) U/L Total Protein 5.9 L (6.3-8.2) g/dL Albumin 3.4 L (3.5-5.0) g/dL 06/09/16 06/09/16 Range/Units 12:05 12:05 WBC (3.8-10.6) k/uL RBC (3.80-5.40) m/uL Hgb (11.4-16.0) gm/dL Hct (34.0-46.0) % MCV (80.0-100.0) fL MCH (25.0-35.0) pg MCHC (31.0-37.0) g/dL RDW (11.5-15.5) % Plt Count (150-450) k/uL Neutrophils % % Lymphocytes % % Monocytes % % Eosinophils % % Basophils % % Neutrophils # (1.3-7.7) k/uL Lymphocytes # (1.0-4.8) k/uL Monocytes # (0-1.0) k/uL Eosinophils # (0-0.7) k/uL Basophils # (0-0.2) k/uL PT 11.0 (9.0-12.0) sec INR 1.1 (<1.1) APTT 23.9 (22.0-30.0) sec Sodium (137-145) mmol/L Potassium (3.5-5.1) mmol/L Chloride (98-107) mmol/L Carbon Dioxide (22-30) mmol/L Anion Gap mmol/L BUN (7-17) mg/dL Creatinine (0.52-1.04) mg/dL Est GFR (MDRD) Af Amer (>60 ml/min/1.73 sqM) Est GFR (MDRD) Non-Af (>60 ml/min/1.73 sqM) Glucose (74-99) mg/dL Plasma Lactic Acid Rupesh 1.6 (0.7-2.0) mmol/L Calcium (8.4-10.2) mg/dL Magnesium (1.6-2.3) mg/dL Total Bilirubin (0.2-1.3) mg/dL AST (14-36) U/L ALT (9-52) U/L Alkaline Phosphatase (38-126) U/L Total Creatine Kinase (30-135) U/L Total Protein (6.3-8.2) g/dL Albumin (3.5-5.0) g/dL Disposition Clinical Impression: Pneumonia Disposition: ADMITTED IP TO THIS [facility] Time of Disposition: 13:11
--- NOTE | 2016-06-09 12:39 | XR ---
EXAMINATION TYPE: XR chest 2V DATE OF EXAM: 06/09/2016 12:29 PM HISTORY: difficulty breathing. REFERENCE: Previous study dated 03/31/2016. FINDINGS: Lung volumes are prominent. The heart is mildly prominent. There are chronic parenchymal ch anges at the left lung base. There is a new infiltrate in the right lower lobe. No definite pleural f luid is seen. IMPRESSION: 1. COPD. 2. MILD CARDIOMEGALY. 3. CHRONIC PARENCHYMAL CHANGES. 4. NEW INFILTRATE IN THE RIGHT LOWER LOBE.
[2016-06-09 12:43] LABS: Basophils # (A) 0.1 k/uL (0-0.2); Basophils % (A) 0 %; CH 31.8; CHCM 31.9; Eosinophils # (A) 0.1 k/uL (0-0.7); Eosinophils % (A) 1 %; HCT 37.2 % (34.0-46.0); HDW 2.41; HGB 11.8 gm/dL (11.4-16.0); Luc # (Auto) 0.17; Luc % (Auto) 1; Lymphocytes # (A) 0.5 k/uL (1.0-4.8); Lymphocytes % (A) 3 %; MCH 31.8 pg (25.0-35.0); MCHC 31.7 g/dL (31.0-37.0); MCV 100.2 fL (80.0-100.0); Mean Platelet Volume 7.7; Monocytes # (A) 0.6 k/uL (0-1.0); Monocytes % (A) 4 %; Neutrophils # (A) 12.4 k/uL (1.3-7.7); Neutrophils % (A) 90 %; RBC 3.71 m/uL (3.80-5.40); RDW 13.9 % (11.5-15.5); WBC 13.7 k/uL (3.8-10.6); WBC (Perox) 14.12
[2016-06-09] MEDS ORDERED: LEVOFLOXACIN 750MG-D5W PMX 750 MG in DEXTROSE/WATER 1 150ML.BAG IVPB STA (12:53)
[2016-06-09 12:55] LABS: ALT 34 U/L (9-52); AST 25 U/L (14-36); Alkaline Phosphatase 96 U/L (38-126); Anion Gap 7 mmol/L; Blood Urea Nitrogen 16 mg/dL (7-17); Calcium 9.6 mg/dL (8.4-10.2); Carbon Dioxide 32 mmol/L (22-30); Chloride 98 mmol/L (98-107); Glucose 121 mg/dL (74-99); Magnesium 1.9 mg/dL (1.6-2.3); Non-African American GFR(MDRD) >60 (>60 ml/min/1.73 sqM); Potassium 4.1 mmol/L (3.5-5.1); Sodium 137 mmol/L (137-145); Total Bilirubin 0.8 mg/dL (0.2-1.3); Total Protein 5.9 g/dL (6.3-8.2)
[2016-06-09 13:00] LABS: Creatine Kinase 48 U/L (30-135)
[2016-06-09 13:07] LABS: INR 1.1 (<1.1); Partial Thromboplastin Time 23.9 sec (22.0-30.0)
[2016-06-09] MEDS ORDERED: PNEUMONIA PROTOCOL UTILIZED 1 EACH MISC PO PRN (13:11)
[2016-06-09 13:13] LABS: Troponin I <0.012 ng/mL (0.000-0.034)
[2016-06-09 13:15] LABS: Creatine Kinase MB 3.8 ng/mL (0.0-2.4)
[2016-06-09] MEDS ORDERED: LOSARTAN 50 MG TAB PO SCH (14:45)
[2016-06-09] MEDS ORDERED: FLUTICASONE 50MCG/SPRAY NASAL 16GM EA NOSTRIL SCH (14:45)
[2016-06-09] MEDS ORDERED: NON-FORMULARY DRUG (Glucerna Shake 1 CAN) PO SCH (14:45)
--- NOTE | 2016-06-09 14:48 | P.CNPUL ---
History of Present Illness Consult date: 06/09/16 Requesting physician: Nate Dean Reason for consult: abnormal CXR/CT Chief complaint: Shortness of breath, cough, congestion History of present illness: this is a very pleasant 71-year-old female patient who follows with Dr. Cameron is her primary care physician.she has a history of hypertension. 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 She also has had ongoing smoking history. She follows in our office for the same. She was seen and evaluated last week by Dr. Estrada who initiated her on 5 mg of prednisone daily to be continued as a maintenance dose. he also performed a bronchoscopy with BAL just yesterday.she presented here to the emergency room this morning stating her breathing was much worse. She was having chills and episodes of diaphoresis. No nausea vomiting or diarrhea. Continue with a loose nonproductive cough. her chest x-ray reveals evidence of chronic obstructive pulmonary disease, mild cardiomegaly, chronic parenchymal changes and a new infiltrate of the right lower lobe. This could be secondary to the BAL. she has minimal leukocytosis. A T-max of 99.7. she is seen today in consultation on the regular medical floor. She is awake and alert in no acute distress. She does have a loose nonproductive cough. No hemoptysis. Review of Systems 14 point review of system was conducted. All negative other than as mentioned in the HPI. Past Medical History Past Medical History: Heart Failure, COPD, Pneumonia Additional Past Medical History / Comment(s): O2 at 3L ATC since pneumonia/ sepsis 03/28/16, severe COPD, hemorrhoids. History of Any Multi-Drug Resistant Organisms: None Reported Past Surgical History: Heart Catheterization, Tonsillectomy, Tubal Ligation Additional Past Surgical History / Comment(s): 06/08/16 bronchoscopy with BAL and brushings, bronchoscopy in past, colonoscopies with benign polypectomies, bilateral cataract removal with lens, normal cardiac cath. Past Anesthesia/Blood Transfusion Reactions: No Reported Reaction Past Psychological History: Anxiety Additional Psychological History / Comment(s): Pt resides alone. She uses no assistive device. She has not driven last couple months due to health reasons. She uses O2 3L/NC ATC. She has a significant other that is very helpful to her. Smoking Status: Former smoker Past Alcohol Use History: Occasional Additional Past Alcohol Use History / Comment(s): Pt started smoking in 1977 and quit 03/28/16. Past Drug Use History: None Reported - Past Family History Mother Family Medical History: Cancer Additional Family Medical History / Comment(s): Mother of leukemia at the age of 36yrs. Father Family Medical History: Cancer Additional Family Medical History / Comment(s): Father at the age of 76yrs from lung cancer. He was a 5ppd smoker. Medications and Allergies Home Medications Medication Instructions Recorded Confirmed Type ALPRAZolam [Xanax] 0.5 mg PO TID PRN 03/28/16 06/09/16 History Aspirin 81 mg PO DAILY 03/28/16 06/09/16 History Calcium Carbonate/Vitamin D3 1 tab PO DAILY 03/28/16 06/09/16 History [Calcium 500-Vit D3 600 Tablet] Fluticasone/Salmeterol [Advair 1 puff INHALATION RT-BID 03/28/16 06/09/16 History 500-50 Diskus] Ipratropium/Albuterol Sulfate 1 - 2 puff INHALATION RT-QID 03/28/16 06/09/16 History [Combivent Respimat Inhaler] Losartan [Cozaar] 50 mg PO DAILY 03/28/16 06/09/16 History Metoprolol Succinate [Toprol XL] 25 mg PO DAILY 03/28/16 06/09/16 History Multivitamins, Thera [Multivitamin 1 tab PO DAILY 03/28/16 06/09/16 History (formulary)] Theophylline 24 Hour [Ruben-24] 200 mg PO HS 03/28/16 06/09/16 History predniSONE 5 mg PO DAILY 06/07/16 06/09/16 History Fluticasone Nasal [place] [Flonase 1 spray EA NOSTRIL DAILY 06/09/16 06/09/16 History Nasal [place]] Furosemide [Lasix] 20 mg PO Q48H 06/09/16 06/09/16 History Glucerna Shake 1 can PO DAILY 06/09/16 06/09/16 History Allergies Allergy/AdvReac Type Severity Reaction Status Date / Time fluconazole [From Diflucan] Allergy Unknown Unknown Verified 06/09/16 12:02 varenicline [From Chantix] Allergy Unknown Rash/Hives Verified 06/09/16 12:02 escitalopram [From Lexapro] AdvReac Unknown Unknown Verified 06/09/16 12:02 Physical Exam Vitals: Vital Signs Temp Pulse Resp BP Pulse Ox 06/09/16 13:45 98.2 F 98 26 H 106/55 94 L 06/09/16 13:15 90 28 H 105/59 93 L 06/09/16 13:14 91 GENERAL EXAM: Alert,fairly comfortable in no apparent distress. HEAD: Normocephalic. EYES: Normal reaction of pupils, equal size. NOSE: Clear with pink turbinates. THROAT: No erythema or exudates. NECK: No masses, no JVD. CHEST: No chest wall deformity. LUNGS: Equal air entry with bilateral wheeze, scattered rhonchi. Diminished. CVS: S1 and S2 normal with no audible murmurs, regular rhythm. ABDOMEN: No hepatosplenomegaly, normal bowel sounds, no guarding or rigidity. SPINE: No scoliosis or deformity SKIN: No rashes CENTRAL NERVOUS SYSTEM: No focal deficits, tone is normal in all 4 extremities. Extremities: There is no significant peripheral edema. No clubbing, no cyanosis. Peripheral pulses are intact. Results - Laboratory Findings CBC and BMP: 06/09/16 12:05 06/09/16 12:05 PT/INR, D-dimer PT 11.0 sec (9.0-12.0) 06/09/16 12:05 INR 1.1 (<1.1) 06/09/16 12:05 - Diagnostic Findings Chest x-ray: image reviewed Assessment and Plan Plan: impression: #1 Dyspnea, multifactorial in a patient with acute exacerbation of severe oxygen dependent, steroid dependent Gold stage IV chronic obstructive pulmonary disease. FEV1 value 25%. Also, status post bronchoscopy with BAL in the outpatient setting yesterday with new infiltrate of the right lower lobe possibly secondary to the BAL versus new infiltrate/pneumonia. #2 Acute exacerbation of severe oxygen-dependent, steroid-dependent chronic obstructive pulmonary disease. #3 Chronic tobacco dependence, quit March 2016. #4 Hypertension. #5 History of congestive heart failure. #6 Recent admission for left lower lobe pneumonia in March 2016. Plan: the patient was seen and evaluated by Dr. Hope. Her chest x-ray and labs were reviewed. We'll go ahead and continue with her bronchodilators, Pulmicort and Perforomist inhalations twice a day, IV Solu-Medrol and antibiotics in the form of Zosyn and Levaquin. We will continue to follow and make further recommendations based on her clinical status.
[2016-06-09] MEDS: ASPIRIN 81 MG CHEW PO SCH (15:19)
[2016-06-09] MEDS: METOPROLOL SUCCINATE (ER) 25 MG TAB.ER.24H PO SCH (15:20)
[2016-06-09] MEDS: CALCIUM CARB-VIT D 500MG-200UN 1 EACH TAB PO SCH (15:22)
[2016-06-09] MEDS: MULTIVITAMINS, THERA 1 EACH TAB PO SCH (15:22)
[2016-06-09] MEDS: FUROSEMIDE 20 MG TAB PO SCH (15:22)
[2016-06-09] MEDS: PIPERACILLIN-TAZOBACTAM 3.375 GM in DEXTROSE/WATER 1 50ML.BAG IVPB SCH ×2 (15:22→23:25)
[2016-06-09] MEDS: IPRATROPIUM-ALBUTEROL 3 ML NEB INHALATION PRN ×2 (16:24→19:29)
[2016-06-09 17:22] LABS: Glucose,Whole Blood 145 mg/dL (75-99)
[2016-06-09] MEDS: methylPREDNISolone SOD SUCCI 125 MG/2 ML VIAL IV SCH (17:33)
[2016-06-09] MEDS: INSULIN LISPRO (humaLOG) 300 UNIT/3 ML VIAL SQ SCH ×2 (17:34→21:33)
[2016-06-09] MEDS: BUDESONIDE 1 MG/2 ML NEBU INHALATION SCH (19:29)
[2016-06-09] MEDS: FORMOTEROL FUMARATE 20 MCG/2 ML NEBU INHALATION SCH (19:29)
[2016-06-09] MEDS ORDERED: BUDESONIDE 1 MG/2 ML NEBU INHALATION SCH (20:00)
[2016-06-09] MEDS ORDERED: NON-FORMULARY DRUG (Fluticasone/Salmeterol [Advair 500-50 Diskus] 1 PUFF) INHALATION SCH (20:00)
[2016-06-09 21:09] LABS: Glucose,Whole Blood 182 mg/dL (75-99)
[2016-06-09] MEDS: THEOPHYLLINE 24 HOUR 200 MG CAP.ER.24H PO SCH (21:30)
[2016-06-09] MEDS: ALPRAZolam 0.5 MG TAB PO PRN (21:33)
[2016-06-10] MEDS: methylPREDNISolone SOD SUCCI 125 MG/2 ML VIAL IV SCH ×4 (06:18→23:17)
[2016-06-10 07:15] LABS: Glucose,Whole Blood 156 mg/dL (75-99)
[2016-06-10] MEDS: PANTOPRAZOLE 40 MG TABLET PO SCH ×2 (07:52→09:53)
[2016-06-10] MEDS: ASPIRIN 81 MG CHEW PO SCH (07:52)
[2016-06-10] MEDS: CALCIUM CARB-VIT D 500MG-200UN 1 EACH TAB PO SCH (07:52)
[2016-06-10] MEDS: PIPERACILLIN-TAZOBACTAM 3.375 GM in DEXTROSE/WATER 1 50ML.BAG IVPB SCH ×3 (07:53→23:16)
[2016-06-10] MEDS: INSULIN LISPRO (humaLOG) 300 UNIT/3 ML VIAL SQ SCH ×4 (07:57→21:54)
[2016-06-10] MEDS: ALPRAZolam 0.5 MG TAB PO PRN ×3 (07:59→21:54)
[2016-06-10] MEDS: FORMOTEROL FUMARATE 20 MCG/2 ML NEBU INHALATION SCH ×2 (08:12→19:50)
[2016-06-10] MEDS: BUDESONIDE 1 MG/2 ML NEBU INHALATION SCH ×2 (08:13→19:50)
[2016-06-10] MEDS: IPRATROPIUM-ALBUTEROL 3 ML NEB INHALATION PRN ×3 (08:13→19:50)
--- NOTE | 2016-06-10 09:04 | HP ---
DATE OF ADMISSION: DATE OF SERVICE: 06/09/2016 CHIEF COMPLAINT: Shortness of breath. HISTORY OF PRESENT ILLNESS: This 71-year-old woman with a past medical history of history of CHF, COPD, history of pneumonia, history of chronic respiratory failure, history of cardiac catheterization, history of anxiety being followed by Dr. Cameron in the outpatient setting not feeling well for the past several days. Patient had increase in shortness of breath, cough and sputum. The patient apparently had a bronchoscopy done yesterday also. The breathing got worse after the bronchoscopy and the patient also had some cold spells and the patient has not taking the temperature but because of difficulty the patient came [facility]. Right lower lobe pneumonia was suspected. Patient was admitted for further evaluation and treatment. Broad-spectrum IV antibiotics initiated. White count was elevated to 13.7. There is no history of any headache, loss of conscious or seizures. At this time, influenza is negative. PAST MEDICAL HISTORY: History of COPD, chronic respiratory failure, history of CHF, history of pneumonia, cardiac catheterization, history of recent bronchoscopy and anxiety. Medications prior to admission include home medications are: 1. Prednisone 5 mg p.o. daily. 2. Ruben-24, 200 mg p.o. q.h.s. 3. Multivitamins 1 p.o. daily. 4. Toprol XL 25 mg daily. 5. Cozaar 50 mg p.o. daily. 6. Combivent 1 to 2 puffs q.i.d. 7. Glucerna 1 can p.o. daily. 8. Lasix 20 mg p.o. q.48 hours. 9. Advair Diskus 500/50 one puff b.i.d. 10. Flonase one spray daily. 11. Calcium carbonate with vitamin D, one tablet p.o. daily. 12. Pulmicort 1 mg b.i.d. 13. Aspirin 81 mg daily. 14. Xanax 0.5 p.o. t.i.d. p.r.n. ALLERGIES: FLUCONAZOLE, CHANTIX and LEXAPRO. FAMILY HISTORY: History of cancer. Mother of leukemia at the age of 36. SOCIAL HISTORY: Occasional alcohol and previous history of smoking. REVIEW OF SYSTEMS: ENT: No diminished hearing. No diminished vision. CARDIOVASCULAR: As mentioned earlier. RESPIRATORY: As mentioned earlier. GI: No nausea. : No dysuria. NERVOUS SYSTEM: No numbness or weakness. ALLERGY/IMMUNOLOGY: No history of asthma or hayfever. MUSCULOSKELETAL: As mentioned earlier. HEMATOLOGY/ONCOLOGY: No history of anemia. ENDOCRINE: No history of diabetes or hypothyroidism. CONSTITUTIONAL: As mentioned earlier. DERMATOLOGY: Negative. RHEUMATOLOGY: Negative. PSYCHIATRY: As mentioned earlier. PHYSICAL EXAMINATION: The patient is alert and oriented x3. The pulse is 98, blood pressure 106/55, respiratory rate 26, temperature 98.2, pulse ox 93% on 3 L. HEENT: Conjunctivae normal. Oral mucosa moist. NECK: No jugular venous distention. No carotid bruit. No lymph node enlargement. CARDIOVASCULAR: S1 and S2, muffled. No S3, no S4. RESPIRATORY: Breath sounds diminished at the bases. Bilateral scattered rhonchi and crackles. Chest emphysematous. Breathing efforts are markedly increased. ABDOMEN: Soft, nontender. No mass palpable. LEGS: No edema, no swelling. NERVOUS SYSTEM: Higher function as mentioned earlier. Moves all 4 limbs. No focal motor or sensory deficit. LYMPHATICS: No lymphadenopathy of neck, axillae or groin. SKIN: No ulcers, rashes or bleeding. LABS: WBC 13.7, hemoglobin 11.8, MCV 100.2. Glucose 121. CK MB 3.8. Albumin is 3.4. ASSESSMENT: 1. Chronic obstructive pulmonary disease, acute exacerbation, with right lower lobe pneumonia, possibly gram-negative, possibly aspiration with early sepsis. 2. Increased WBC. 3. Increased MCV. 4. History of nicotine dependence. 5. Increased random blood sugar. 6. Hypoalbuminemia with mild to moderate protein calorie malnutrition. 7. History of recent bronchoscopy. 8. History of congestive heart failure. 9. History of chronic obstructive pulmonary disease. 10. History of pneumonia. 11. History of chronic hypoxic respiratory failure on home oxygen. 12. History of hemorrhoids. 13. History of anxiety, not otherwise specified. 14. FULL CODE. RECOMMENDATIONS AND DISCUSSION: In this 71-year-old woman who presented with multiple complex medical issues, we will monitor the patient closely. Continue the current medications. Continue symptomatic treatment. Continue with bronchodilators, continue with IV steroids. Continue with empiric antibiotics. Otherwise, Dr. Hope is consulted. Will resume the home medications. Guarded prognosis because of multiple complex medical issues. Further recommendations to follow. A copy of dictation forwarded to Dr. Cameron who is the primary physician. symptomatic treatment also will be provided. [facility]
--- NOTE | 2016-06-10 09:31 | XR ---
EXAMINATION TYPE: XR chest 2V DATE OF EXAM: 06/10/2016 9:24 AM COMPARISON: Prior chest x-ray May HISTORY: Shortness of breath, pneumonia TECHNIQUE: Frontal and lateral views of the chest are obtained. FINDINGS: Prominent lung volumes compatible with underlying COPD. The interstitium is increased as o n prior exam. The heart is enlarged. No pneumothorax or sizable effusion. Pulmonary vascularity and h navya are stable. IMPRESSION: Correlate to exclude pulmonary venous hypertension and interstitial edema.
[2016-06-10 09:59] LABS: Anion Gap 11 mmol/L; Blood Urea Nitrogen 14 mg/dL (7-17); Calcium 9.8 mg/dL (8.4-10.2); Carbon Dioxide 33 mmol/L (22-30); Chloride 94 mmol/L (98-107); Glucose 235 mg/dL (74-99); Non-African American GFR(MDRD) >60 (>60 ml/min/1.73 sqM); Potassium 4.1 mmol/L (3.5-5.1); Sodium 138 mmol/L (137-145)
[2016-06-10 10:15] LABS: Basophils % (A) 0 %; CH 31.6; CHCM 31.2; Eosinophils % (A) 0 %; HCT 35.5 % (34.0-46.0); HDW 2.34; Luc # (Auto) 0.06; Luc % (Auto) 0; Lymphocytes # (A) 0.3 k/uL (1.0-4.8); Lymphocytes % (A) 3 %; MCH 31.6 pg (25.0-35.0); MCHC 31.1 g/dL (31.0-37.0); MCV 101.6 fL (80.0-100.0); Macrocytosis Slight; Mean Platelet Volume 7.5; Monocytes # (A) 0.3 k/uL (0-1.0); Monocytes % (A) 2 %; Neutrophils # (A) 12.6 k/uL (1.3-7.7); Neutrophils % (A) 95 %; RDW 13.8 % (11.5-15.5); WBC 13.3 k/uL (3.8-10.6); WBC (Perox) 14.35
[2016-06-10] MEDS: METOPROLOL SUCCINATE (ER) 25 MG TAB.ER.24H PO SCH (10:27)
[2016-06-10 12:09] LABS: Glucose,Whole Blood 148 mg/dL (75-99)
[2016-06-10] MEDS: MULTIVITAMINS, THERA 1 EACH TAB PO SCH (12:23)
[2016-06-10] MEDS ORDERED: LEVOFLOXACIN 750MG-D5W PMX 750 MG in DEXTROSE/WATER 1 150ML.BAG IVPB SCH (13:00)
--- NOTE | 2016-06-10 14:14 | P.PN ---
Subjective Principal diagnosis: COPD exacerbation This is a very pleasant 71-year-old female patient who follows with Dr. Cameron is her primary care physician.she has a history of hypertension. 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 She also has had ongoing smoking history. She follows in our office for the same. She was seen and evaluated last week by Dr. Estrada who initiated her on 5 mg of prednisone daily to be continued as a maintenance dose. he also performed a bronchoscopy with BAL just yesterday.she presented here to the emergency room this morning stating her breathing was much worse. She was having chills and episodes of diaphoresis. No nausea vomiting or diarrhea. Continue with a loose nonproductive cough. her chest x-ray reveals evidence of chronic obstructive pulmonary disease, mild cardiomegaly, chronic parenchymal changes and a new infiltrate of the right lower lobe. This could be secondary to the BAL. she has minimal leukocytosis. A T-max of 99.7. she is seen today in consultation on the regular medical floor. She is awake and alert in no acute distress. She does have a loose nonproductive cough. No hemoptysis. The patient is seen again today 06/10/2016 in follow-up on the regular medical floor. She is awake and alert in no acute distress. She is slightly better today as compared to yesterday but not back to her baseline. She is quite dyspneic on minimal exertion. Her recent bronchoscopy wash findings revealed pseudomonas aeruginosa. She remains on Zosyn and Levaquin both of which are included in the sensitivity. She is currently afebrile. Maintaining good O2 saturations in the 90s on 3 L/m per nasal cannula. Objective - Vital Signs Vital signs: Vital Signs Temp 97 F L 06/10/16 07:00 Pulse 96 06/10/16 11:32 Resp 16 06/10/16 07:00 BP 103/55 06/10/16 10:26 Pulse Ox 93 L 06/10/16 07:00 Intake & Output 06/09/16 06/10/16 06/10/16 18:59 06:59 18:59 Intake Total 240 100 Output Total 20 Balance 220 100 Weight 51.71 kg 53.5 kg Intake: Oral 240 100 Output: Urine 20 Other: Voiding Method Toilet # Voids 1 1 1 - Exam GENERAL EXAM: Alert, active, comfortable in no apparent distress. HEAD: Normocephalic. EYES: Normal reaction of pupils, equal size. NOSE: Clear with pink turbinates. THROAT: No erythema or exudates. NECK: No masses, no JVD. CHEST: No chest wall deformity. LUNGS: Equal air entry with end expiratory wheeze, few scattered crackles. Diminished.. CVS: S1 and S2 normal with no audible murmurs, regular rhythm. ABDOMEN: No hepatosplenomegaly, normal bowel sounds, no guarding or rigidity. SPINE: No scoliosis or deformity SKIN: No rashes CENTRAL NERVOUS SYSTEM: No focal deficits, tone is normal in all 4 extremities. Extremities: There is no peripheral edema. No clubbing, no cyanosis. Peripheral pulses are intact. - Labs CBC & Chem 7: 06/10/16 09:03 06/10/16 09:03 Labs: Abnormal Lab Results - Last 24 Hours (Table) 06/09/16 06/09/16 06/10/16 Range/Units 17:14 20:58 06:59 WBC (3.8-10.6) k/uL RBC (3.80-5.40) m/uL Hgb (11.4-16.0) gm/dL MCV (80.0-100.0) fL Neutrophils # (1.3-7.7) k/uL Lymphocytes # (1.0-4.8) k/uL Chloride (98-107) mmol/L Carbon Dioxide (22-30) mmol/L Glucose (74-99) mg/dL POC Glucose (mg/dL) 145 H 182 H 156 H (75-99) mg/dL 06/10/16 06/10/16 06/10/16 Range/Units 09:03 09:03 12:08 WBC 13.3 H (3.8-10.6) k/uL RBC 3.50 L (3.80-5.40) m/uL Hgb 11.0 L (11.4-16.0) gm/dL MCV 101.6 H (80.0-100.0) fL Neutrophils # 12.6 H (1.3-7.7) k/uL Lymphocytes # 0.3 L (1.0-4.8) k/uL Chloride 94 L (98-107) mmol/L Carbon Dioxide 33 H (22-30) mmol/L Glucose 235 H (74-99) mg/dL POC Glucose (mg/dL) 148 H (75-99) mg/dL Microbiology - Last 24 Hours (Table) 06/09/16 16:17 Gram Stain - Final Sputum Sputum Culture - Final 06/09/16 17:10 Urine Culture - Preliminary Urine,Clean Catch Assessment and Plan Plan: impression: #1 Dyspnea, multifactorial in a patient with acute exacerbation of severe oxygen dependent, steroid dependent Gold stage IV chronic obstructive pulmonary disease. FEV1 value 25%. Also, status post bronchoscopy with BAL in the outpatient setting yesterday with new infiltrate of the right lower lobe secondary to pseudomonas aeruginosa. #2 Acute exacerbation of severe oxygen-dependent, steroid-dependent chronic obstructive pulmonary disease. #3 Chronic tobacco dependence, quit March 2016. #4 Hypertension. #5 History of congestive heart failure. #6 Recent admission for left lower lobe pneumonia in March 2016. Plan: The patient was seen and evaluated by Dr. Hope. Her chest x-ray and labs were reviewed. The Pseudomonas is noted in the BAL findings .We'll go ahead and continue with her bronchodilators, Pulmicort and Perforomist inhalations twice a day, IV Solu-Medrol and antibiotics in the form of Zosyn and Levaquin. We will continue to follow and make further recommendations based on her clinical status.
[2016-06-10 17:04] LABS: Glucose,Whole Blood 117 mg/dL (75-99)
--- NOTE | 2016-06-10 17:39 | P.PN ---
Subjective Date of service 06/10/2016 Personal being dictated for Dr. Mata. Interval history: This a 71-year-old female in a with acute exacerbation of COPD , right lower lobe pneumonia in a patient with recent bronchoscopy pleural cultures reporting pseudomonas aeruginosa and multiple other medical issues. Maintained on Levaquin, Zosyn, nebulized bronchodilators, IV steroids. Breathing slowly improving. Afebrile, blood sugars better controlled. Review of systems: HEENT: Denies headache or focal deficits. Denies any dizziness or lightheadedness. Respiratory: Complains of increased shortness of breath with minimal exertion. Cardiac: Denies any chest pain, palpitations. GI: Denies any nausea, vomiting, or diarrhea. Denies any abdominal tenderness. : Denies any dysuria. Psychiatry: Denies any anxiety or depression. Active Medications Hydrocodone Bitart/Acetaminophen ([place] 5-325) 1 each PO Q6HR PRN PRN Reason: Pain Albuterol/Ipratropium (Duoneb 0.5 Mg-3 Mg/3 Ml Soln) 3 ml INHALATION RT-Q4H PRN PRN Reason: shortness of breath Last Admin: 06/10/16 11:22 Dose: 3 ml Alprazolam (Xanax) 0.5 mg PO TID PRN PRN Reason: Anxiety Last Admin: 06/10/16 16:53 Dose: 0.5 mg Aspirin (Aspirin) 81 mg PO DAILY [facility] Last Admin: 06/10/16 07:52 Dose: 81 mg Budesonide (Pulmicort) 1 mg INHALATION RT-BID [facility] Last Admin: 06/10/16 08:13 Dose: 1 mg Calcium Carbonate (Oscal 500+D) 1 each PO DAILY [facility] Last Admin: 06/10/16 07:52 Dose: 1 each Formoterol Fumarate (Perforomist) 20 mcg INHALATION RT-BID [facility] Last Admin: 06/10/16 08:12 Dose: 20 mcg Furosemide (Lasix) 20 mg PO Q48H [facility] Last Admin: 06/09/16 15:22 Dose: 20 mg Levofloxacin 750 mg/ IV (Solution) 150 mls @ 100 mls/hr IVPB Q24H [facility] Stop: 06/10/16 23:00 Last Admin: 06/10/16 13:25 Dose: 100 mls/hr Piperacillin/Tazobactam/ (Dextrose 3.375 gm/ IV Solution) 50 mls @ 12.5 mls/hr IVPB Q8HR [facility] Stop: 06/19/16 16:01 Last Admin: 06/10/16 16:44 Dose: 12.5 mls/hr Insulin Human Lispro (Humalog) 0 unit SQ ACHS [place] PRN Reason: Protocol Last Admin: 06/10/16 12:23 Dose: 1 unit Levofloxacin (Levaquin) 750 mg PO DAILY@1300 [place] Methylprednisolone Sodium Succinate (Solu-Medrol) 60 mg IV Q6HR [facility] Last Admin: 06/10/16 12:23 Dose: 60 mg Metoprolol Succinate (Toprol Xl) 25 mg PO DAILY [facility] Last Admin: 06/10/16 10:27 Dose: Not Given Miscellaneous Information (Pneumonia Protocol Utilized) 1 each PO ONCE PRN PRN Reason: Per Protocol Multivitamins (Theragran) 1 each PO DAILY@1200 [facility] Last Admin: 06/10/16 12:23 Dose: 1 each Pantoprazole Sodium (Protonix) 40 mg PO AC-BRKFST [facility] Last Admin: 06/10/16 09:53 Dose: 40 mg Temazepam (Restoril) 15 mg PO HS PRN PRN Reason: Insomnia Theophylline (Ruben-24) 200 mg PO HS [facility] Last Admin: 06/09/16 21:30 Dose: 200 mg Objective - Vital Signs Vital signs: Vital Signs Temp 97.2 F L 06/10/16 15:00 Pulse 74 06/10/16 15:27 Resp 18 06/10/16 15:00 BP 144/77 06/10/16 15:00 Pulse Ox 90 L 06/10/16 15:00 Intake & Output 06/09/16 06/10/16 06/10/16 18:59 06:59 18:59 Intake Total 240 100 Output Total 20 Balance 220 100 Weight 51.71 kg 53.5 kg Intake: Oral 240 100 Output: Urine 20 Other: Voiding Method Toilet # Voids 1 1 1 - Exam PHYSICAL EXAM: VITAL SIGNS: As above GENERAL: [Sitting up in bed, no acute distress] HEENT: [Pupils equal conjunctiva normal.] NECK: [Supple, no JVD] RESPIRATORY EFFORT:[Increased] LUNGS: [Scattered rhonchi crackles throughout, bilateral bases diminished] CARDIOVASCULAR[regular S1 and S2] GI: [Abdomen soft, nontender, positive bowel sounds.] PSYCH: [Alert and oriented -3, mood and affect normal.] NEURO: No focal deficits, moves all 4 extremities, strength and sensation intact. Microbiology 06/09/16 13:15 Blood Blood Culture - Preliminary No Growth after 24 hours 06/09/16 12:05 Blood Blood Culture - Preliminary No Growth after 24 hours 06/09/16 16:17 Sputum Gram Stain - Final 06/09/16 16:17 Sputum Sputum Culture - Final 06/09/16 17:10 Urine,Clean Catch Urine Culture - Preliminary - Labs CBC & Chem 7: 06/10/16 09:03 06/10/16 09:03 Labs: Abnormal Lab Results - Last 24 Hours (Table) 06/09/16 06/10/16 06/10/16 Range/Units 20:58 06:59 09:03 WBC 13.3 H (3.8-10.6) k/uL RBC 3.50 L (3.80-5.40) m/uL Hgb 11.0 L (11.4-16.0) gm/dL MCV 101.6 H (80.0-100.0) fL Neutrophils # 12.6 H (1.3-7.7) k/uL Lymphocytes # 0.3 L (1.0-4.8) k/uL Chloride (98-107) mmol/L Carbon Dioxide (22-30) mmol/L Glucose (74-99) mg/dL POC Glucose (mg/dL) 182 H 156 H (75-99) mg/dL 06/10/16 06/10/16 06/10/16 Range/Units 09:03 12:08 16:57 WBC (3.8-10.6) k/uL RBC (3.80-5.40) m/uL Hgb (11.4-16.0) gm/dL MCV (80.0-100.0) fL Neutrophils # (1.3-7.7) k/uL Lymphocytes # (1.0-4.8) k/uL Chloride 94 L (98-107) mmol/L Carbon Dioxide 33 H (22-30) mmol/L Glucose 235 H (74-99) mg/dL POC Glucose (mg/dL) 148 H 117 H (75-99) mg/dL Microbiology - Last 24 Hours (Table) 06/09/16 13:15 Blood Culture - Preliminary Blood No Growth after 24 hours 06/09/16 16:17 Gram Stain - Final Sputum Sputum Culture - Final 06/09/16 17:10 Urine Culture - Preliminary Urine,Clean Catch Assessment and Plan Plan: 1. Acute COPD exacerbation with right lower lobe pneumonia, possibly gram- negative, possibly aspiration with early sepsis. 2. [Leukocytosis]. 3. [Increased MCV]. 4. [History of nicotine dependence, quit in March 2016]. 5. [Mild to moderate protein calorie malnutrition, BMI 19.6 with hypoalbuminemia ]. 6. [Recent bronchoscopy, pleural cultures positive pseudomonas aeruginosa]. 7. [History of CHF]. 8. History of COPD 9. Chronic hypoxic respiratory failure on home O2 of 3 L 10. History of anxiety, not otherwise specified Plan: Continue on nebulized bronchodilators, IV steroids, antibiotics, monitoring, and symptomatic treatment. Follow cultures closely. Increase ambulation as tolerated. Close monitoring of Accu-Cheks given steroid treatment. Follow closely with pulmonary. Prognosis guarded given multiple complex medical issues. Further recommendations to follow. The impression and plan of care has been dictated as directed. : I performed a H&P examination of this patient and discussed the same with the dictator. I agree with the dictator's note. Any additional findings/opinions/ etc. will be noted.
[2016-06-10 20:59] LABS: Glucose,Whole Blood 156 mg/dL (75-99)
[2016-06-10] MEDS: THEOPHYLLINE 24 HOUR 200 MG CAP.ER.24H PO SCH (21:54)
--- NOTE | 2016-06-10 23:22 | PN ---
DATE OF SERVICE: 06/11/2015 This 71-year-old woman who was admitted with COPD, acute exacerbation, and right lower lobe pneumonia, is being closely monitored at this time. The patient also had features of early sepsis. Seen and evaluated the patient along with the nurse practitioner. Please refer to the nurse practitioner's notes and impressions documented as a scribe for further information. Guarded prognosis. Further recommendations to follow.
[2016-06-11] MEDS: methylPREDNISolone SOD SUCCI 125 MG/2 ML VIAL IV SCH ×4 (06:20→23:42)
[2016-06-11 07:11] LABS: Glucose,Whole Blood 167 mg/dL (75-99)
[2016-06-11] MEDS: INSULIN LISPRO (humaLOG) 300 UNIT/3 ML VIAL SQ SCH ×4 (07:43→21:26)
[2016-06-11] MEDS: ASPIRIN 81 MG CHEW PO SCH (07:43)
[2016-06-11] MEDS: METOPROLOL SUCCINATE (ER) 25 MG TAB.ER.24H PO SCH (07:43)
[2016-06-11] MEDS: PANTOPRAZOLE 40 MG TABLET PO SCH (07:43)
[2016-06-11] MEDS: CALCIUM CARB-VIT D 500MG-200UN 1 EACH TAB PO SCH (07:43)
[2016-06-11] MEDS: ALPRAZolam 0.5 MG TAB PO PRN ×3 (07:47→21:10)
[2016-06-11] MEDS: PIPERACILLIN-TAZOBACTAM 3.375 GM in DEXTROSE/WATER 1 50ML.BAG IVPB SCH ×3 (07:48→23:42)
[2016-06-11] MEDS: BUDESONIDE 1 MG/2 ML NEBU INHALATION SCH ×2 (08:01→19:46)
[2016-06-11] MEDS: FORMOTEROL FUMARATE 20 MCG/2 ML NEBU INHALATION SCH ×2 (08:01→19:46)
[2016-06-11] MEDS: IPRATROPIUM-ALBUTEROL 3 ML NEB INHALATION PRN ×4 (08:01→19:46)
[2016-06-11 09:43] LABS: Basophils % (A) 0 %; CH 31.5; CHCM 30.8; Eosinophils % (A) 0 %; HDW 2.36; HGB 11.1 gm/dL (11.4-16.0); Hypochromasia Slight; Luc # (Auto) 0.07; Luc % (Auto) 1; Lymphocytes # (A) 0.4 k/uL (1.0-4.8); Lymphocytes % (A) 3 %; MCH 31.6 pg (25.0-35.0); MCHC 30.8 g/dL (31.0-37.0); MCV 102.7 fL (80.0-100.0); Macrocytosis Slight; Mean Platelet Volume 7.3; Monocytes # (A) 0.5 k/uL (0-1.0); Monocytes % (A) 3 %; Neutrophils # (A) 13.2 k/uL (1.3-7.7); Neutrophils % (A) 93 %; RBC 3.51 m/uL (3.80-5.40); RDW 13.9 % (11.5-15.5); WBC 14.2 k/uL (3.8-10.6); WBC (Perox) 15.55
[2016-06-11 09:59] LABS: Anion Gap 11 mmol/L; Blood Urea Nitrogen 18 mg/dL (7-17); Calcium 9.5 mg/dL (8.4-10.2); Carbon Dioxide 31 mmol/L (22-30); Chloride 99 mmol/L (98-107); Glucose 216 mg/dL (74-99); Non-African American GFR(MDRD) >60 (>60 ml/min/1.73 sqM); Potassium 4.3 mmol/L (3.5-5.1); Sodium 141 mmol/L (137-145)
[2016-06-11 12:07] LABS: Glucose,Whole Blood 122 mg/dL (75-99)
[2016-06-11] MEDS: MULTIVITAMINS, THERA 1 EACH TAB PO SCH (13:16)
[2016-06-11] MEDS: LEVOFLOXACIN 750 MG TAB PO SCH (13:16)
[2016-06-11] MEDS: NYSTATIN 100,000 UNIT/ML SUSP 500,000 UNIT/5 ML CUP PO SCH ×3 (13:19→21:27)
--- NOTE | 2016-06-11 14:18 | P.PN ---
Subjective Principal diagnosis: COPD exacerbation This is a very pleasant 71-year-old female patient who follows with Dr. Cameron is her primary care physician.she has a history of hypertension. 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 She also has had ongoing smoking history. She follows in our office for the same. She was seen and evaluated last week by Dr. Estrada who initiated her on 5 mg of prednisone daily to be continued as a maintenance dose. he also performed a bronchoscopy with BAL just yesterday.she presented here to the emergency room this morning stating her breathing was much worse. She was having chills and episodes of diaphoresis. No nausea vomiting or diarrhea. Continue with a loose nonproductive cough. her chest x-ray reveals evidence of chronic obstructive pulmonary disease, mild cardiomegaly, chronic parenchymal changes and a new infiltrate of the right lower lobe. This could be secondary to the BAL. she has minimal leukocytosis. A T-max of 99.7. she is seen today in consultation on the regular medical floor. She is awake and alert in no acute distress. She does have a loose nonproductive cough. No hemoptysis. The patient is seen again today 06/10/2016 in follow-up on the regular medical floor. She is awake and alert in no acute distress. She is slightly better today as compared to yesterday but not back to her baseline. She is quite dyspneic on minimal exertion. Her recent bronchoscopy wash findings revealed pseudomonas aeruginosa. She remains on Zosyn and Levaquin both of which are included in the sensitivity. She is currently afebrile. Maintaining good O2 saturations in the 90s on 3 L/m per nasal cannula. She is seen again today 06/11/2016 in follow-up on the regular medical floor. She is currently sitting up in the chair at the bedside. She denies any worsening shortness of breath, cough or congestion. She is still not quite back to her baseline. She is maintaining O2 saturations in the mid 90s on 3 L/ m per nasal cannula. She's been afebrile. White count stable. Objective - Vital Signs Vital signs: Vital Signs Temp 97.1 F L 06/11/16 07:00 Pulse 88 06/11/16 11:56 Resp 20 06/11/16 08:00 BP 111/60 06/11/16 07:00 Pulse Ox 95 06/11/16 07:00 Intake & Output 06/10/16 06/11/16 06/11/16 18:59 06:59 18:59 Intake Total 200 240 Balance 200 240 Weight 53 kg 53 kg Intake: Oral 200 240 Other: Voiding Method Toilet Toilet # Voids 1 1 - Exam GENERAL EXAM: Alert, active, comfortable in no apparent distress. HEAD: Normocephalic. EYES: Normal reaction of pupils, equal size. NOSE: Clear with pink turbinates. THROAT: No erythema or exudates. NECK: No masses, no JVD. CHEST: No chest wall deformity. LUNGS: Equal air entry with end expiratory wheeze, few scattered crackles. Diminished.. CVS: S1 and S2 normal with no audible murmurs, regular rhythm. ABDOMEN: No hepatosplenomegaly, normal bowel sounds, no guarding or rigidity. SPINE: No scoliosis or deformity SKIN: No rashes CENTRAL NERVOUS SYSTEM: No focal deficits, tone is normal in all 4 extremities. Extremities: There is no peripheral edema. No clubbing, no cyanosis. Peripheral pulses are intact. - Labs CBC & Chem 7: 06/11/16 08:28 06/11/16 08:28 Labs: Abnormal Lab Results - Last 24 Hours (Table) 06/10/16 06/10/16 06/11/16 Range/Units 16:57 20:57 07:02 WBC (3.8-10.6) k/uL RBC (3.80-5.40) m/uL Hgb (11.4-16.0) gm/dL MCV (80.0-100.0) fL MCHC (31.0-37.0) g/dL Neutrophils # (1.3-7.7) k/uL Lymphocytes # (1.0-4.8) k/uL Carbon Dioxide (22-30) mmol/L BUN (7-17) mg/dL Glucose (74-99) mg/dL POC Glucose (mg/dL) 117 H 156 H 167 H (75-99) mg/dL 06/11/16 06/11/16 06/11/16 Range/Units 08:28 08:28 12:06 WBC 14.2 H (3.8-10.6) k/uL RBC 3.51 L (3.80-5.40) m/uL Hgb 11.1 L (11.4-16.0) gm/dL MCV 102.7 H (80.0-100.0) fL MCHC 30.8 L (31.0-37.0) g/dL Neutrophils # 13.2 H (1.3-7.7) k/uL Lymphocytes # 0.4 L (1.0-4.8) k/uL Carbon Dioxide 31 H (22-30) mmol/L BUN 18 H (7-17) mg/dL Glucose 216 H (74-99) mg/dL POC Glucose (mg/dL) 122 H (75-99) mg/dL Microbiology - Last 24 Hours (Table) 06/09/16 17:10 Urine Culture - Final Urine,Clean Catch 06/09/16 13:15 Blood Culture - Preliminary Blood No Growth after 24 hours Assessment and Plan Plan: impression: #1 Dyspnea, multifactorial in a patient with acute exacerbation of severe oxygen dependent, steroid dependent Gold stage IV chronic obstructive pulmonary disease. FEV1 value 25%. Also, status post bronchoscopy with BAL in the outpatient setting yesterday with new infiltrate of the right lower lobe secondary to pseudomonas aeruginosa. #2 Acute exacerbation of severe oxygen-dependent, steroid-dependent chronic obstructive pulmonary disease. #3 Chronic tobacco dependence, quit March 2016. #4 Hypertension. #5 History of congestive heart failure. #6 Recent admission for left lower lobe pneumonia in March 2016. Plan: The patient was seen and evaluated by Dr. Hope. The Pseudomonas noted in the BAL findings is sensitive to both Zosyn and Levaquin. We'll continue her pulmonary medications. We'll continue to follow and make further recommendations based on her clinical status.
[2016-06-11] MEDS: FUROSEMIDE 20 MG TAB PO SCH (14:24)
--- NOTE | 2016-06-11 14:50 | P.PN ---
Subjective Date of service 06/11/2016 Personal being dictated for Dr. Mata. Interval history: This a 71-year-old female in a with acute exacerbation of COPD , right lower lobe pneumonia in a patient with recent bronchoscopy pleural cultures reporting pseudomonas aeruginosa and multiple other medical issues. Maintained on Levaquin, Zosyn, nebulized bronchodilators, IV steroids. Breathing slow to improve. Afebrile. Blood sugars controlled. Denies chest pain or palpitations. Objective - Vital Signs Vital signs: Vital Signs Temp 97.1 F L 06/11/16 07:00 Pulse 88 06/11/16 11:56 Resp 20 06/11/16 08:00 BP 111/60 06/11/16 07:00 Pulse Ox 95 06/11/16 07:00 Intake & Output 06/10/16 06/11/16 06/11/16 18:59 06:59 18:59 Intake Total 200 240 Balance 200 240 Weight 53 kg 53 kg Intake: Oral 200 240 Other: Voiding Method Toilet Toilet # Voids 1 1 - Exam PHYSICAL EXAM: VITAL SIGNS: As above GENERAL: [Sitting up in bed, no acute distress] HEENT: [Pupils equal conjunctiva normal.] NECK: [Supple, no JVD] RESPIRATORY EFFORT:[Increased] LUNGS: Diminished throughout CARDIOVASCULAR[regular S1 and S2] GI: [Abdomen soft, nontender, positive bowel sounds.] PSYCH: [Alert and oriented -3, mood and affect normal.] NEURO: No focal deficits, moves all 4 extremities, strength and sensation intact. Microbiology 06/09/16 13:15 Blood Blood Culture - Preliminary No Growth after 24 hours 06/09/16 12:05 Blood Blood Culture - Preliminary No Growth after 24 hours 06/09/16 16:17 Sputum Gram Stain - Final 06/09/16 16:17 Sputum Sputum Culture - Final 06/09/16 17:10 Urine,Clean Catch Urine Culture - Preliminary - Labs CBC & Chem 7: 06/11/16 08:28 06/11/16 08:28 Labs: Abnormal Lab Results - Last 24 Hours (Table) 06/10/16 06/10/16 06/11/16 Range/Units 16:57 20:57 07:02 WBC (3.8-10.6) k/uL RBC (3.80-5.40) m/uL Hgb (11.4-16.0) gm/dL MCV (80.0-100.0) fL MCHC (31.0-37.0) g/dL Neutrophils # (1.3-7.7) k/uL Lymphocytes # (1.0-4.8) k/uL Carbon Dioxide (22-30) mmol/L BUN (7-17) mg/dL Glucose (74-99) mg/dL POC Glucose (mg/dL) 117 H 156 H 167 H (75-99) mg/dL 06/11/16 06/11/16 06/11/16 Range/Units 08:28 08:28 12:06 WBC 14.2 H (3.8-10.6) k/uL RBC 3.51 L (3.80-5.40) m/uL Hgb 11.1 L (11.4-16.0) gm/dL MCV 102.7 H (80.0-100.0) fL MCHC 30.8 L (31.0-37.0) g/dL Neutrophils # 13.2 H (1.3-7.7) k/uL Lymphocytes # 0.4 L (1.0-4.8) k/uL Carbon Dioxide 31 H (22-30) mmol/L BUN 18 H (7-17) mg/dL Glucose 216 H (74-99) mg/dL POC Glucose (mg/dL) 122 H (75-99) mg/dL Microbiology - Last 24 Hours (Table) 06/09/16 17:10 Urine Culture - Final Urine,Clean Catch 06/09/16 13:15 Blood Culture - Preliminary Blood No Growth after 24 hours Assessment and Plan Plan: 1. Acute COPD exacerbation with right lower lobe pneumonia, possibly gram- negative, possibly aspiration with early sepsis. 2. [Leukocytosis]. 3. [Increased MCV]. 4. [History of nicotine dependence, quit in March 2016]. 5. [Mild to moderate protein calorie malnutrition, BMI 19.6 with hypoalbuminemia ]. 6. [Recent bronchoscopy, pleural cultures positive pseudomonas aeruginosa]. 7. [History of CHF]. 8. History of COPD 9. Chronic hypoxic respiratory failure on home O2 of 3 L 10. History of anxiety, not otherwise specified Plan: Continue on nebulized bronchodilators, IV steroids, antibiotics, monitoring, and symptomatic treatment. Follow cultures closely. Increase ambulation as tolerated. Glucerna supplements ordered between meals and daily at bedtime .Follow closely with pulmonary. Prognosis guarded given multiple complex medical issues. Further recommendations to follow. The impression and plan of care has been dictated as directed. : I performed a H&P examination of this patient and discussed the same with the dictator. I agree with the dictator's note. Any additional findings/opinions/ etc. will be noted.
[2016-06-11 17:12] LABS: Glucose,Whole Blood 131 mg/dL (75-99)
[2016-06-11] MEDS: THEOPHYLLINE 24 HOUR 200 MG CAP.ER.24H PO SCH (21:10)
[2016-06-11 21:32] LABS: Glucose,Whole Blood 188 mg/dL (75-99)
[2016-06-12] MEDS: methylPREDNISolone SOD SUCCI 125 MG/2 ML VIAL IV SCH ×4 (05:40→23:24)
[2016-06-12] MEDS: FORMOTEROL FUMARATE 20 MCG/2 ML NEBU INHALATION SCH ×2 (07:09→19:10)
[2016-06-12] MEDS: IPRATROPIUM-ALBUTEROL 3 ML NEB INHALATION PRN ×4 (07:09→19:10)
[2016-06-12] MEDS: BUDESONIDE 1 MG/2 ML NEBU INHALATION SCH ×2 (07:09→19:10)
[2016-06-12 07:11] LABS: Glucose,Whole Blood 150 mg/dL (75-99)
--- NOTE | 2016-06-12 07:27 | PN ---
DATE OF SERVICE: 06/11/2016 This 71-year-old woman who was admitted with chronic obstructive pulmonary disease acute exacerbation and possible right lower lobe pneumonia. Seen and evaluated the patient along with the nurse practitioner. Please refer to the nurse practitioner notes and impression documented for further information. Closely follow with Pulmonary. Further recommendations to follow.
[2016-06-12] MEDS: INSULIN LISPRO (humaLOG) 300 UNIT/3 ML VIAL SQ SCH ×4 (07:35→21:00)
[2016-06-12] MEDS: PANTOPRAZOLE 40 MG TABLET PO SCH (07:35)
[2016-06-12 08:33] LABS: Basophils % (A) 0 %; CH 31.5; CHCM 31.6; Eosinophils % (A) 0 %; HCT 36.7 % (34.0-46.0); HDW 2.43; HGB 11.8 gm/dL (11.4-16.0); Luc # (Auto) 0.09; Luc % (Auto) 1; Lymphocytes # (A) 0.4 k/uL (1.0-4.8); Lymphocytes % (A) 4 %; MCH 32.2 pg (25.0-35.0); MCHC 32.1 g/dL (31.0-37.0); MCV 100.1 fL (80.0-100.0); Mean Platelet Volume 7.4; Monocytes # (A) 0.4 k/uL (0-1.0); Monocytes % (A) 4 %; Neutrophils % (A) 92 %; RBC 3.67 m/uL (3.80-5.40); RDW 13.9 % (11.5-15.5); WBC 10.9 k/uL (3.8-10.6); WBC (Perox) 10.38
[2016-06-12] MEDS: ASPIRIN 81 MG CHEW PO SCH (08:35)
[2016-06-12] MEDS: CALCIUM CARB-VIT D 500MG-200UN 1 EACH TAB PO SCH (08:36)
[2016-06-12] MEDS: METOPROLOL SUCCINATE (ER) 25 MG TAB.ER.24H PO SCH (08:36)
[2016-06-12] MEDS: NYSTATIN 100,000 UNIT/ML SUSP 500,000 UNIT/5 ML CUP PO SCH ×4 (08:36→21:01)
[2016-06-12 08:41] LABS: Anion Gap 13 mmol/L; Blood Urea Nitrogen 22 mg/dL (7-17); Calcium 9.5 mg/dL (8.4-10.2); Carbon Dioxide 31 mmol/L (22-30); Chloride 97 mmol/L (98-107); Glucose 151 mg/dL (74-99); Non-African American GFR(MDRD) >60 (>60 ml/min/1.73 sqM); Sodium 141 mmol/L (137-145)
[2016-06-12] MEDS: ALPRAZolam 0.5 MG TAB PO PRN ×3 (08:43→22:46)
[2016-06-12] MEDS: PIPERACILLIN-TAZOBACTAM 3.375 GM in DEXTROSE/WATER 1 50ML.BAG IVPB SCH ×3 (08:43→23:24)
[2016-06-12 11:45] LABS: Glucose,Whole Blood 170 mg/dL (75-99)
[2016-06-12] MEDS: MULTIVITAMINS, THERA 1 EACH TAB PO SCH (12:01)
[2016-06-12] MEDS: LEVOFLOXACIN 750 MG TAB PO SCH (12:04)
--- NOTE | 2016-06-12 12:23 | P.PN ---
Subjective Principal diagnosis: COPD exacerbation This is a very pleasant 71-year-old female patient who follows with Dr. Cameron is her primary care physician.she has a history of hypertension. 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 She also has had ongoing smoking history. She follows in our office for the same. She was seen and evaluated last week by Dr. Estrada who initiated her on 5 mg of prednisone daily to be continued as a maintenance dose. he also performed a bronchoscopy with BAL just yesterday.she presented here to the emergency room this morning stating her breathing was much worse. She was having chills and episodes of diaphoresis. No nausea vomiting or diarrhea. Continue with a loose nonproductive cough. her chest x-ray reveals evidence of chronic obstructive pulmonary disease, mild cardiomegaly, chronic parenchymal changes and a new infiltrate of the right lower lobe. This could be secondary to the BAL. she has minimal leukocytosis. A T-max of 99.7. she is seen today in consultation on the regular medical floor. She is awake and alert in no acute distress. She does have a loose nonproductive cough. No hemoptysis. The patient is seen again today 06/10/2016 in follow-up on the regular medical floor. She is awake and alert in no acute distress. She is slightly better today as compared to yesterday but not back to her baseline. She is quite dyspneic on minimal exertion. Her recent bronchoscopy wash findings revealed pseudomonas aeruginosa. She remains on Zosyn and Levaquin both of which are included in the sensitivity. She is currently afebrile. Maintaining good O2 saturations in the 90s on 3 L/m per nasal cannula. She is seen again today 06/11/2016 in follow-up on the regular medical floor. She is currently sitting up in the chair at the bedside. She denies any worsening shortness of breath, cough or congestion. She is still not quite back to her baseline. She is maintaining O2 saturations in the mid 90s on 3 L/ m per nasal cannula. She's been afebrile. White count stable. the patient is seen again today 06/12/2014 in follow-up. She is awake and alert in no acute distress. Unfortunately she remains quite dyspneic on minimal exertion. She has been slow to progress. Her blood cultures have been showing no growth to date. Urine culture negative. she is being treated for her Pseudomonas found in her recent bronchoscopy. Objective - Vital Signs Vital signs: Vital Signs Temp 97.3 F L 06/12/16 07:00 Pulse 84 06/12/16 11:17 Resp 18 06/12/16 07:00 BP 139/65 06/12/16 07:00 Pulse Ox 88 L 06/12/16 07:12 Intake & Output 06/11/16 06/12/16 06/12/16 18:59 06:59 18:59 Intake Total 440 400 Balance 440 400 Weight 53 kg 53.5 kg Intake: Oral 440 400 Other: Voiding Method Toilet Toilet # Voids 3 2 1 # Bowel Movements 0 - Exam GENERAL EXAM: Alert, active, comfortable in no apparent distress. HEAD: Normocephalic. EYES: Normal reaction of pupils, equal size. NOSE: Clear with pink turbinates. THROAT: No erythema or exudates. NECK: No masses, no JVD. CHEST: No chest wall deformity. LUNGS: Equal air entry with end expiratory wheeze, few scattered crackles. Diminished.. CVS: S1 and S2 normal with no audible murmurs, regular rhythm. ABDOMEN: No hepatosplenomegaly, normal bowel sounds, no guarding or rigidity. SPINE: No scoliosis or deformity SKIN: No rashes CENTRAL NERVOUS SYSTEM: No focal deficits, tone is normal in all 4 extremities. Extremities: There is no peripheral edema. No clubbing, no cyanosis. Peripheral pulses are intact. - Labs CBC & Chem 7: 06/12/16 07:53 06/12/16 07:53 Labs: Abnormal Lab Results - Last 24 Hours (Table) 06/11/16 06/11/16 06/12/16 Range/Units 17:09 21:14 07:09 WBC (3.8-10.6) k/uL RBC (3.80-5.40) m/uL MCV (80.0-100.0) fL Neutrophils # (1.3-7.7) k/uL Lymphocytes # (1.0-4.8) k/uL Chloride (98-107) mmol/L Carbon Dioxide (22-30) mmol/L BUN (7-17) mg/dL Creatinine (0.52-1.04) mg/dL Glucose (74-99) mg/dL POC Glucose (mg/dL) 131 H 188 H 150 H (75-99) mg/dL 06/12/16 06/12/16 06/12/16 Range/Units 07:53 07:53 11:43 WBC 10.9 H (3.8-10.6) k/uL RBC 3.67 L (3.80-5.40) m/uL MCV 100.1 H (80.0-100.0) fL Neutrophils # 10.0 H (1.3-7.7) k/uL Lymphocytes # 0.4 L (1.0-4.8) k/uL Chloride 97 L (98-107) mmol/L Carbon Dioxide 31 H (22-30) mmol/L BUN 22 H (7-17) mg/dL Creatinine 0.50 L (0.52-1.04) mg/dL Glucose 151 H (74-99) mg/dL POC Glucose (mg/dL) 170 H (75-99) mg/dL Microbiology - Last 24 Hours (Table) 06/09/16 13:15 Blood Culture - Preliminary Blood No Growth after 48 hours Assessment and Plan Plan: Impression: #1 Dyspnea, multifactorial in a patient with acute exacerbation of severe oxygen dependent, steroid dependent Gold stage IV chronic obstructive pulmonary disease. FEV1 value 25%. Also, status post bronchoscopy with BAL in the outpatient setting yesterday with new infiltrate of the right lower lobe secondary to pseudomonas aeruginosa. #2 Acute exacerbation of severe oxygen-dependent, steroid-dependent chronic obstructive pulmonary disease. #3 Chronic tobacco dependence, quit March 2016. #4 Hypertension. #5 History of congestive heart failure. #6 Recent admission for left lower lobe pneumonia in March 2016. Plan: The patient was seen and evaluated by Dr. Hope. The Pseudomonas noted in the BAL findings is sensitive to both Zosyn and Levaquin. We'll continue her pulmonary medications. We will increase her activity as tolerated. We'll continue to follow and make further recommendations based on her clinical status.
--- NOTE | 2016-06-12 12:34 | P.PN ---
Subjective Date of service 06/12/2016 Personal being dictated for Dr. Mata. Interval history: This a 71-year-old female in a with acute exacerbation of COPD , right lower lobe pneumonia in a patient with recent bronchoscopy pleural cultures reporting pseudomonas aeruginosa and multiple other medical issues. Breathing slowly improving on Levaquin, Zosyn, nebulized bronchodilators, IV steroids. Just completed a nebulized bronchodilator treatment, minimal air exchange noted. Continues on 3 L nasal cannula, maintaining O2 sats of 93%. WBC improving. Afebrile. Sputum culture contaminated. Blood sugars controlled. Denies chest pain or palpitations. Objective - Vital Signs Vital signs: Vital Signs Temp 97.3 F L 06/12/16 07:00 Pulse 84 06/12/16 11:17 Resp 18 06/12/16 07:00 BP 139/65 06/12/16 07:00 Pulse Ox 88 L 06/12/16 07:12 Intake & Output 06/11/16 06/12/16 06/12/16 18:59 06:59 18:59 Intake Total 440 400 Balance 440 400 Weight 53 kg 53.5 kg Intake: Oral 440 400 Other: Voiding Method Toilet Toilet # Voids 3 2 1 # Bowel Movements 0 - Exam PHYSICAL EXAM: VITAL SIGNS: As above GENERAL: [Sitting up in bed, no acute distress] HEENT: [Pupils equal conjunctiva normal.] NECK: [Supple, no JVD] RESPIRATORY EFFORT:[Increased] LUNGS: Diminished throughout CARDIOVASCULAR[regular S1 and S2] GI: [Abdomen soft, nontender, positive bowel sounds.] PSYCH: [Alert and oriented -3, mood and affect normal.] NEURO: No focal deficits, moves all 4 extremities, strength and sensation intact. Microbiology 06/09/16 13:15 Blood Blood Culture - Preliminary No Growth after 48 hours 06/09/16 12:05 Blood Blood Culture - Preliminary No Growth after 48 hours 06/09/16 17:10 Urine,Clean Catch Urine Culture - Final 06/09/16 16:17 Sputum Gram Stain - Final 06/09/16 16:17 Sputum Sputum Culture - Final - Labs CBC & Chem 7: 06/12/16 07:53 06/12/16 07:53 Labs: Abnormal Lab Results - Last 24 Hours (Table) 06/11/16 06/11/16 06/12/16 Range/Units 17:09 21:14 07:09 WBC (3.8-10.6) k/uL RBC (3.80-5.40) m/uL MCV (80.0-100.0) fL Neutrophils # (1.3-7.7) k/uL Lymphocytes # (1.0-4.8) k/uL Chloride (98-107) mmol/L Carbon Dioxide (22-30) mmol/L BUN (7-17) mg/dL Creatinine (0.52-1.04) mg/dL Glucose (74-99) mg/dL POC Glucose (mg/dL) 131 H 188 H 150 H (75-99) mg/dL 06/12/16 06/12/16 06/12/16 Range/Units 07:53 07:53 11:43 WBC 10.9 H (3.8-10.6) k/uL RBC 3.67 L (3.80-5.40) m/uL MCV 100.1 H (80.0-100.0) fL Neutrophils # 10.0 H (1.3-7.7) k/uL Lymphocytes # 0.4 L (1.0-4.8) k/uL Chloride 97 L (98-107) mmol/L Carbon Dioxide 31 H (22-30) mmol/L BUN 22 H (7-17) mg/dL Creatinine 0.50 L (0.52-1.04) mg/dL Glucose 151 H (74-99) mg/dL POC Glucose (mg/dL) 170 H (75-99) mg/dL Microbiology - Last 24 Hours (Table) 06/09/16 13:15 Blood Culture - Preliminary Blood No Growth after 48 hours Assessment and Plan Plan: 1. Acute COPD exacerbation with right lower lobe pneumonia, possibly gram- negative, possibly aspiration with early sepsis. 2. [Leukocytosis]. 3. [Increased MCV]. 4. [History of nicotine dependence, quit in March 2016]. 5. [Mild to moderate protein calorie malnutrition, BMI 19.6 with hypoalbuminemia ]. 6. [Recent bronchoscopy, pleural cultures positive pseudomonas aeruginosa]. 7. [History of CHF]. 8. History of COPD 9. Chronic hypoxic respiratory failure on home O2 of 3 L 10. History of anxiety, not otherwise specified Plan: Continue on nebulized bronchodilators, IV steroids, antibiotics, monitoring, and symptomatic treatment. Continue following cultures closely/ Sputum culture contaminated. Maintain Glucerna supplements .Follow closely with pulmonary. Prognosis guarded given multiple complex medical issues. Further recommendations to follow. The impression and plan of care has been dictated as directed. : I performed a H&P examination of this patient and discussed the same with the dictator. I agree with the dictator's note. Any additional findings/opinions/ etc. will be noted.
[2016-06-12 16:54] LABS: Glucose,Whole Blood 130 mg/dL (75-99)
[2016-06-12] MEDS: THEOPHYLLINE 24 HOUR 200 MG CAP.ER.24H PO SCH (21:01)
[2016-06-12 21:07] LABS: Glucose,Whole Blood 147 mg/dL (75-99)
[2016-06-13] MEDS: methylPREDNISolone SOD SUCCI 125 MG/2 ML VIAL IV SCH ×4 (06:29→23:08)
[2016-06-13 07:23] LABS: Glucose,Whole Blood 154 mg/dL (75-99)
[2016-06-13] MEDS: PANTOPRAZOLE 40 MG TABLET PO SCH (07:38)
[2016-06-13] MEDS: INSULIN LISPRO (humaLOG) 300 UNIT/3 ML VIAL SQ SCH ×4 (07:39→21:05)
[2016-06-13] MEDS: ALPRAZolam 0.5 MG TAB PO PRN ×3 (07:43→23:13)
[2016-06-13] MEDS: CALCIUM CARB-VIT D 500MG-200UN 1 EACH TAB PO SCH (08:14)
[2016-06-13] MEDS: NYSTATIN 100,000 UNIT/ML SUSP 500,000 UNIT/5 ML CUP PO SCH ×4 (08:14→20:15)
[2016-06-13] MEDS: PIPERACILLIN-TAZOBACTAM 3.375 GM in DEXTROSE/WATER 1 50ML.BAG IVPB SCH ×3 (08:15→23:08)
[2016-06-13] MEDS: METOPROLOL SUCCINATE (ER) 25 MG TAB.ER.24H PO SCH (08:15)
[2016-06-13] MEDS: ASPIRIN 81 MG CHEW PO SCH (08:15)
[2016-06-13] MEDS: THEOPHYLLINE 24 HOUR 200 MG CAP.ER.24H PO SCH ×2 (08:15→20:15)
[2016-06-13] MEDS: FORMOTEROL FUMARATE 20 MCG/2 ML NEBU INHALATION SCH ×2 (08:36→20:48)
[2016-06-13] MEDS: IPRATROPIUM-ALBUTEROL 3 ML NEB INHALATION PRN ×4 (08:36→20:48)
[2016-06-13] MEDS: BUDESONIDE 1 MG/2 ML NEBU INHALATION SCH ×2 (08:36→20:48)
[2016-06-13 09:39] LABS: Basophils % (A) 0 %; CH 31.2; CHCM 30.6; Eosinophils % (A) 0 %; HCT 37.9 % (34.0-46.0); HDW 2.44; HGB 11.5 gm/dL (11.4-16.0); Hypochromasia Slight; Luc # (Auto) 0.12; Luc % (Auto) 1; Lymphocytes # (A) 0.4 k/uL (1.0-4.8); Lymphocytes % (A) 5 %; MCH 31.1 pg (25.0-35.0); MCHC 30.3 g/dL (31.0-37.0); MCV 102.6 fL (80.0-100.0); Macrocytosis Slight; Mean Platelet Volume 7.3; Monocytes # (A) 0.4 k/uL (0-1.0); Monocytes % (A) 5 %; Neutrophils # (A) 7.6 k/uL (1.3-7.7); Neutrophils % (A) 89 %; RBC 3.69 m/uL (3.80-5.40); RDW 13.7 % (11.5-15.5); WBC 8.6 k/uL (3.8-10.6); WBC (Perox) 8.92
[2016-06-13 10:02] LABS: Anion Gap 11 mmol/L; Blood Urea Nitrogen 22 mg/dL (7-17); Calcium 9.3 mg/dL (8.4-10.2); Carbon Dioxide 35 mmol/L (22-30); Chloride 95 mmol/L (98-107); Glucose 184 mg/dL (74-99); Non-African American GFR(MDRD) >60 (>60 ml/min/1.73 sqM); Potassium 4.7 mmol/L (3.5-5.1); Sodium 141 mmol/L (137-145)
--- NOTE | 2016-06-13 11:28 | PN ---
DATE OF SERVICE: 06/12/2016 This 71-year-old woman who was admitted with significant chronic obstructive pulmonary disease, acute exacerbation is being closely monitored. Seen and evaluated the patient along with nurse practitioner. Please refer to the nurse practitioner notes and impression documented as a scribe for further information. The patient also had right lower lobe pneumonia, possibly gram-negative. The patient also significantly short of breath also. Please refer to the nurse practitioner notes and impressions documented as a scribe for further information. Closely follow with Dr. Hope. Guarded prognosis. Further recommendations to follow.
[2016-06-13 12:01] LABS: Glucose,Whole Blood 137 mg/dL (75-99)
[2016-06-13] MEDS: LEVOFLOXACIN 750 MG TAB PO SCH (12:56)
[2016-06-13] MEDS: MULTIVITAMINS, THERA 1 EACH TAB PO SCH (12:56)
--- NOTE | 2016-06-13 13:03 | P.PN ---
Subjective Principal diagnosis: Acute right lower lobe pneumonia and acute exacerbation of COPD This is a very pleasant 71-year-old female patient who follows with Dr. Cameron is her primary care physician.she has a history of hypertension. 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 She also has had ongoing smoking history. She follows in our office for the same. She was seen and evaluated last week by Dr. Estrada who initiated her on 5 mg of prednisone daily to be continued as a maintenance dose. he also performed a bronchoscopy with BAL just yesterday.she presented here to the emergency room this morning stating her breathing was much worse. She was having chills and episodes of diaphoresis. No nausea vomiting or diarrhea. Continue with a loose nonproductive cough. her chest x-ray reveals evidence of chronic obstructive pulmonary disease, mild cardiomegaly, chronic parenchymal changes and a new infiltrate of the right lower lobe. This could be secondary to the BAL. she has minimal leukocytosis. A T-max of 99.7. she is seen today in consultation on the regular medical floor. She is awake and alert in no acute distress. She does have a loose nonproductive cough. No hemoptysis. The patient is seen again today 06/10/2016 in follow-up on the regular medical floor. She is awake and alert in no acute distress. She is slightly better today as compared to yesterday but not back to her baseline. She is quite dyspneic on minimal exertion. Her recent bronchoscopy wash findings revealed pseudomonas aeruginosa. She remains on Zosyn and Levaquin both of which are included in the sensitivity. She is currently afebrile. Maintaining good O2 saturations in the 90s on 3 L/m per nasal cannula. She is seen again today 06/11/2016 in follow-up on the regular medical floor. She is currently sitting up in the chair at the bedside. She denies any worsening shortness of breath, cough or congestion. She is still not quite back to her baseline. She is maintaining O2 saturations in the mid 90s on 3 L/ m per nasal cannula. She's been afebrile. White count stable. the patient is seen again today 06/12/2014 in follow-up. She is awake and alert in no acute distress. Unfortunately she remains quite dyspneic on minimal exertion. She has been slow to progress. Her blood cultures have been showing no growth to date. Urine culture negative. she is being treated for her Pseudomonas found in her recent bronchoscopy. Patient was reevaluated today on 06/13/2016, continues to have shortness of breath at rest and with any activity. Unable to clear much sputum, but her last bronchoscopy was done recently, and the cultures from the BAL are positive for Pseudomonas. In the meantime the patient remains on Levaquin and Zosyn which is an excellent coverage for her Pseudomonas pneumonia infection. Objective - Vital Signs Vital signs: Vital Signs Temp 96.3 F L 06/13/16 07:00 Pulse 92 06/13/16 09:01 Resp 18 06/13/16 07:00 BP 150/78 06/13/16 07:00 Pulse Ox 94 L 06/13/16 07:00 Intake & Output 06/12/16 06/13/16 06/13/16 18:59 06:59 18:59 Intake Total 300 Balance 300 Weight 53.705 kg Intake: Oral 300 Other: # Voids 1 2 - Exam GENERAL EXAM: Alert, active, comfortable in no apparent distress. HEAD: Normocephalic. EYES: Normal reaction of pupils, equal size. NOSE: Clear with pink turbinates. THROAT: No erythema or exudates. NECK: No masses, no JVD. CHEST: No chest wall deformity. LUNGS: Equal air entry with end expiratory wheeze, few scattered crackles. Diminished.. CVS: S1 and S2 normal with no audible murmurs, regular rhythm. ABDOMEN: No hepatosplenomegaly, normal bowel sounds, no guarding or rigidity. SPINE: No scoliosis or deformity SKIN: No rashes CENTRAL NERVOUS SYSTEM: No focal deficits, tone is normal in all 4 extremities. Extremities: There is no peripheral edema. No clubbing, no cyanosis. Peripheral pulses are intact. - Labs CBC & Chem 7: 06/13/16 08:43 06/13/16 08:43 Labs: Abnormal Lab Results - Last 24 Hours (Table) 06/12/16 06/12/16 06/13/16 Range/Units 16:53 20:50 07:22 RBC (3.80-5.40) m/uL MCV (80.0-100.0) fL MCHC (31.0-37.0) g/dL Lymphocytes # (1.0-4.8) k/uL Chloride (98-107) mmol/L Carbon Dioxide (22-30) mmol/L BUN (7-17) mg/dL Glucose (74-99) mg/dL POC Glucose (mg/dL) 130 H 147 H 154 H (75-99) mg/dL 06/13/16 06/13/16 06/13/16 Range/Units 08:43 08:43 11:56 RBC 3.69 L (3.80-5.40) m/uL MCV 102.6 H (80.0-100.0) fL MCHC 30.3 L (31.0-37.0) g/dL Lymphocytes # 0.4 L (1.0-4.8) k/uL Chloride 95 L (98-107) mmol/L Carbon Dioxide 35 H (22-30) mmol/L BUN 22 H (7-17) mg/dL Glucose 184 H (74-99) mg/dL POC Glucose (mg/dL) 137 H (75-99) mg/dL Microbiology - Last 24 Hours (Table) 06/09/16 13:15 Blood Culture - Preliminary Blood No Growth after 72 hours Assessment and Plan Plan: 1 Dyspnea, multifactorial in a patient with acute exacerbation of severe oxygen dependent, steroid dependent Gold stage IV chronic obstructive pulmonary disease. FEV1 value 25%. Also, status post bronchoscopy with BAL in the outpatient setting yesterday with new infiltrate of the right lower lobe secondary to pseudomonas aeruginosa. #2 Acute exacerbation of severe oxygen-dependent, steroid-dependent chronic obstructive pulmonary disease. #3 Chronic tobacco dependence, quit March 2016. #4 Hypertension. #5 History of congestive heart failure. #6 Recent admission for left lower lobe pneumonia in March 2016. #7 acute right lower lobe pneumonia secondary to Pseudomonas aeruginosa based on recent bronchoscopy and BAL. Patient remains on antibiotics in the form of Zosyn and Levaquin. Recommendation: Clearly the patient remains extremely short of breath, and not quite ready for discharge planning at this point. She will be seen again by Dr. Estrada in a.m. Prognosis considering his severe end-stage COPD is extremely poor and guarded. Time with Patient: Less than 30
[2016-06-13] MEDS: HYDROcodone/APAP 5-325MG 1 EACH TAB PO PRN ×2 (13:55→20:14)
[2016-06-13] MEDS: FUROSEMIDE 20 MG TAB PO SCH (15:20)
[2016-06-13 17:13] LABS: Glucose,Whole Blood 127 mg/dL (75-99)
--- NOTE | 2016-06-13 18:44 | PN ---
DATE OF SERVICE: 06/13/2016 This is a 71-year-old woman who was admitted with COPD acute exacerbation as well as right lobe pneumonia is being closely monitored. Dr. Hope is following the patient closely. The patient is on broad-spectrum IV antibiotics and steroids. Patient is still complaining of significant shortness of breath at rest. FEV1 was found to be 24%. Patient had Gold stage IV COPD. On exam, alert and oriented x3. Pulse 60, blood pressure 145/60, respirations 16, temperature is 97.9, pulse ox 94% on room air. HEENT: Conjunctivae normal. NECK: No jugular venous distension. CARDIOVASCULAR SYSTEM: S1, S2, muffled. RESPIRATORY: Breath sounds diminished at the bases, a few scattered rhonchi, no crackles. Respiratory wheezing and . ABDOMEN: Soft, nontender, no mass palpable. EXTREMITIES: Legs no edema, no swelling. NERVOUS SYSTEM: No focal deficits. Respiratory effort is markedly increased. LABS: WBC 8.6, MCV 102, Accu-Cheks are noted. ASSESSMENT: 1. Chronic obstructive pulmonary disease acute exacerbation, with acute right lower lobe pneumonia, possibly gram-negative, possibly aspiration with early sepsis, present on admission. Possible pseudomonas pneumonia. 2. Endstage chronic obstructive pulmonary disease, with Gold stage IV chronic obstructive pulmonary disease with a FEV1 of 24%. 3. Leukocytosis secondary to #1. 4. Increased MCV. 5. History of nicotine dependence. 6. Mild to moderate protein calorie malnutrition, BMI of 19.6 with hypoalbuminemia. 7. Recent bronchoscopy, pleural cultures positive for Pseudomonas aeruginosa. 8. History of congestive heart failure. 9. Chronic obstructive pulmonary disease. 10. Chronic hypoxic respiratory failure, oxygen 3 L. 11. History of anxiety, not otherwise specified. Otherwise, will continue to monitor and follow with Dr. Hope. Prognosis guarded. Further recommendations to follow. [facility]
[2016-06-13 20:49] LABS: Glucose,Whole Blood 205 mg/dL (75-99)
[2016-06-14] MEDS: HYDROcodone/APAP 5-325MG 1 EACH TAB PO PRN ×4 (01:48→20:06)
[2016-06-14] MEDS: methylPREDNISolone SOD SUCCI 125 MG/2 ML VIAL IV SCH ×4 (06:34→23:50)
[2016-06-14] MEDS: IPRATROPIUM-ALBUTEROL 3 ML NEB INHALATION PRN ×4 (07:14→19:20)
[2016-06-14] MEDS: BUDESONIDE 1 MG/2 ML NEBU INHALATION SCH ×2 (07:14→19:20)
[2016-06-14] MEDS: FORMOTEROL FUMARATE 20 MCG/2 ML NEBU INHALATION SCH ×2 (07:14→19:20)
[2016-06-14 07:33] LABS: Glucose,Whole Blood 139 mg/dL (75-99)
[2016-06-14] MEDS: CALCIUM CARB-VIT D 500MG-200UN 1 EACH TAB PO SCH (07:53)
[2016-06-14] MEDS: NYSTATIN 100,000 UNIT/ML SUSP 500,000 UNIT/5 ML CUP PO SCH ×4 (07:53→21:28)
[2016-06-14] MEDS: THEOPHYLLINE 24 HOUR 200 MG CAP.ER.24H PO SCH ×2 (07:53→20:23)
[2016-06-14] MEDS: PANTOPRAZOLE 40 MG TABLET PO SCH (07:54)
[2016-06-14] MEDS: METOPROLOL SUCCINATE (ER) 25 MG TAB.ER.24H PO SCH (07:54)
[2016-06-14] MEDS: ASPIRIN 81 MG CHEW PO SCH (07:54)
[2016-06-14] MEDS: INSULIN LISPRO (humaLOG) 300 UNIT/3 ML VIAL SQ SCH ×4 (07:54→20:41)
[2016-06-14] MEDS: PIPERACILLIN-TAZOBACTAM 3.375 GM in DEXTROSE/WATER 1 50ML.BAG IVPB SCH (07:54)
[2016-06-14] MEDS: ALPRAZolam 0.5 MG TAB PO PRN ×3 (08:00→20:45)
--- NOTE | 2016-06-14 10:13 | P.PN ---
Subjective Progress note dated 06/14/2016 This is a 71-year-old female well-known to me. She has a history of stage IV very severe/end-stage COPD. She had bronchoscopy done last Tuesday. She was admitted the following day on Tuesday. We identified Pseudomonas from the BAL. We did also sample lesion that was suspicious in the right mainstem her distal right mainstem. It was negative cytologically. I believe either evaluated that placed before. Anyway we talked to Xochitl today about CODE STATUS. She is a DO NOT RESUSCITATE. Would not want life support mechanical ventilation or anything heroic done. I'm hoping we can turn around and get her out of the hospital. Prognosis is not very good. I had a very honest discussion with her today. She currently on antibiotics for Pseudomonas including Levaquin and Zosyn. Objective - Vital Signs Vital signs: Vital Signs Temp 97.0 F L 06/14/16 07:00 Pulse 88 06/14/16 07:57 Resp 18 06/14/16 07:00 BP 138/83 06/14/16 07:00 Pulse Ox 98 06/14/16 07:00 Intake & Output 06/13/16 06/14/16 06/14/16 18:59 06:59 18:59 Other: # Voids 2 1 - Exam Mildly tachypneic and dyspneic. Oriented 3. HEENT examination is grossly unremarkable. Mucous membranes are moist. Neck supple. Full range of motion. No adenopathy or thyromegaly. Cardiovascular examination reveals regular rhythm rate. S1-S2 normal. No S3- S4 or murmur. Lungs reveal severely diminished breath sounds. A few scattered mild wheezes. No rhonchi. No crackles. Breath sounds are present significantly diminished. And abdominal examinations unremarkable. Extremities are intact. - Labs CBC & Chem 7: 06/13/16 08:43 06/13/16 08:43 Labs: Abnormal Lab Results - Last 24 Hours (Table) 06/13/16 06/13/16 06/13/16 Range/Units 08:43 11:56 17:10 Chloride 95 L (98-107) mmol/L Carbon Dioxide 35 H (22-30) mmol/L BUN 22 H (7-17) mg/dL Glucose 184 H (74-99) mg/dL POC Glucose (mg/dL) 137 H 127 H (75-99) mg/dL 06/13/16 06/14/16 Range/Units 20:47 07:29 Chloride (98-107) mmol/L Carbon Dioxide (22-30) mmol/L BUN (7-17) mg/dL Glucose (74-99) mg/dL POC Glucose (mg/dL) 205 H 139 H (75-99) mg/dL Microbiology - Last 24 Hours (Table) 06/09/16 13:15 Blood Culture - Preliminary Blood No Growth after 96 hours Assessment and Plan (1) Pneumonia Status: Acute (2) Acute exacerbation of chronic obstructive airways disease Status: Acute (3) Failure of outpatient treatment Status: Acute (4) Left lower lobe pneumonia Status: Acute Plan: Plan dated 06/14/2016 This patient has very severe end-stage COPD with an FEV1 that's about 2425% of predicted. Her bronchoscopy recently showed evidence of Pseudomonas. She's being treated for that. She has a history of chronic tobacco use quit in March 2016 as well as hypertension and heart failure. She is oxygen- dependent and steroid-dependent. Anyway we did talk about CODE STATUS. The patient will hopefully be able to be discharged in next 24-48 hours. I did recommend custodial. She refuses. I also talked about CODE STATUS. She is a DO NOT RESUSCITATE. Time with Patient: Greater than 30
[2016-06-14 12:30] LABS: Glucose,Whole Blood 122 mg/dL (75-99)
[2016-06-14] MEDS: MULTIVITAMINS, THERA 1 EACH TAB PO SCH (13:31)
[2016-06-14] MEDS: LEVOFLOXACIN 750 MG TAB PO SCH (13:31)
--- NOTE | 2016-06-14 14:30 | P.PN ---
Subjective Date of service 06/14/2016 Personal being dictated for Dr. Mata. Interval history: This a 71-year-old female in a with acute exacerbation of COPD , right lower lobe pneumonia in a patient with recent bronchoscopy pleural cultures reporting pseudomonas aeruginosa and multiple other medical issues. Continues to have significant shortness of breath on Levaquin, Zosyn, nebulized bronchodilators, IV steroids. Continues on 3 L nasal cannula, maintaining O2 sats of 93%. Afebrile. Denies chest pain or palpitations. Objective - Vital Signs Vital signs: Vital Signs Temp 97.0 F L 06/14/16 07:00 Pulse 88 06/14/16 11:04 Resp 18 06/14/16 07:00 BP 138/83 06/14/16 07:00 Pulse Ox 98 06/14/16 07:00 Intake & Output 06/13/16 06/14/16 06/14/16 18:59 06:59 18:59 Weight 55.5 kg Other: # Voids 2 1 1 - Exam PHYSICAL EXAM: VITAL SIGNS: As above GENERAL: [Sitting up in bed, respiratory effort increased] HEENT: [Pupils equal conjunctiva normal.] NECK: [Supple, no JVD] RESPIRATORY EFFORT:[Increased] LUNGS: Diminished throughout CARDIOVASCULAR[regular S1 and S2] GI: [Abdomen soft, nontender, positive bowel sounds.] PSYCH: [Alert and oriented -3, mood and affect normal.] NEURO: No focal deficits, moves all 4 extremities, strength and sensation intact. Microbiology 06/09/16 13:15 Blood Blood Culture - Preliminary No Growth after 96 hours 06/09/16 12:05 Blood Blood Culture - Preliminary No Growth after 96 hours 06/09/16 17:10 Urine,Clean Catch Urine Culture - Final 06/09/16 16:17 Sputum Gram Stain - Final 06/09/16 16:17 Sputum Sputum Culture - Final - Labs CBC & Chem 7: 06/13/16 08:43 06/13/16 08:43 Labs: Abnormal Lab Results - Last 24 Hours (Table) 06/13/16 06/13/16 06/14/16 Range/Units 17:10 20:47 07:29 POC Glucose (mg/dL) 127 H 205 H 139 H (75-99) mg/dL 06/14/16 Range/Units 12:29 POC Glucose (mg/dL) 122 H (75-99) mg/dL Microbiology - Last 24 Hours (Table) 06/09/16 13:15 Blood Culture - Preliminary Blood No Growth after 96 hours Assessment and Plan Plan: 1. Acute COPD exacerbation with right lower lobe pneumonia, possibly gram- negative, possibly aspiration with early sepsis, with failure of outpatient treatment. 2. [Leukocytosis]. 3. [Increased MCV]. 4. [History of nicotine dependence, quit in March 2016]. 5. [Mild to moderate protein calorie malnutrition, BMI 19.6 with hypoalbuminemia ]. 6. [Recent bronchoscopy, pleural cultures positive pseudomonas aeruginosa]. 7. [History of CHF]. 8. History of COPD, end-stage 9. Chronic hypoxic respiratory failure on home O2 of 3 L 10. History of anxiety, not otherwise specified 11. No code, no CPR, no intubation Plan: Continue on nebulized bronchodilators, IV steroids, antibiotics, monitoring, and symptomatic treatment.Follow closely with pulmonary. Prognosis guarded given multiple complex medical issues. Further recommendations to follow. The impression and plan of care has been dictated as directed. : I performed a H&P examination of this patient and discussed the same with the dictator. I agree with the dictator's note. Any additional findings/opinions/ etc. will be noted.
[2016-06-14 16:44] LABS: Glucose,Whole Blood 154 mg/dL (75-99)
[2016-06-14 20:40] LABS: Glucose,Whole Blood 154 mg/dL (75-99)
[2016-06-15] MEDS: HYDROcodone/APAP 5-325MG 1 EACH TAB PO PRN ×4 (01:56→20:29)
[2016-06-15] MEDS: methylPREDNISolone SOD SUCCI 125 MG/2 ML VIAL IV SCH ×4 (06:19→23:07)
[2016-06-15 07:28] LABS: Glucose,Whole Blood 130 mg/dL (75-99)
--- NOTE | 2016-06-15 07:30 | PN ---
DATE OF SERVICE: 06/14/2016 This is a 71-year-old woman who was admitted with COPD acute exacerbation as well as right lower lobe pneumonia, is being closely monitored at this time. The patient still has significant shortness of breath, the patient has pseudomonas grown from the bronchoscopic specimen. Seen and evaluated the patient with the nurse practitioner. Please refer to the nurse practitioner's notes and impressions document as ascribed for information. Closely follow with Dr. Estrada. Further recommendations to follow.
[2016-06-15] MEDS: PANTOPRAZOLE 40 MG TABLET PO SCH (08:12)
[2016-06-15] MEDS: NYSTATIN 100,000 UNIT/ML SUSP 500,000 UNIT/5 ML CUP PO SCH ×4 (08:12→21:19)
[2016-06-15] MEDS: METOPROLOL SUCCINATE (ER) 25 MG TAB.ER.24H PO SCH (08:12)
[2016-06-15] MEDS: THEOPHYLLINE 24 HOUR 200 MG CAP.ER.24H PO SCH ×2 (08:13→20:30)
[2016-06-15] MEDS: CALCIUM CARB-VIT D 500MG-200UN 1 EACH TAB PO SCH (08:13)
[2016-06-15] MEDS: ALPRAZolam 0.5 MG TAB PO PRN ×3 (08:13→20:31)
[2016-06-15] MEDS: ASPIRIN 81 MG CHEW PO SCH (08:13)
[2016-06-15] MEDS: INSULIN LISPRO (humaLOG) 300 UNIT/3 ML VIAL SQ SCH ×4 (08:14→21:18)
[2016-06-15] MEDS: BUDESONIDE 1 MG/2 ML NEBU INHALATION SCH ×2 (08:27→19:05)
[2016-06-15] MEDS: FORMOTEROL FUMARATE 20 MCG/2 ML NEBU INHALATION SCH ×2 (08:27→19:04)
[2016-06-15] MEDS: IPRATROPIUM-ALBUTEROL 3 ML NEB INHALATION PRN ×4 (08:27→19:05)
--- NOTE | 2016-06-15 11:02 | P.PN ---
Subjective Progress note dated 06/14/2016 This is a 71-year-old female well-known to me. She has a history of stage IV very severe/end-stage COPD. She had bronchoscopy done last Tuesday. She was admitted the following day on Tuesday. We identified Pseudomonas from the BAL. We did also sample lesion that was suspicious in the right mainstem her distal right mainstem. It was negative cytologically. I believe either evaluated that placed before. Anyway we talked to Xochitl today about CODE STATUS. She is a DO NOT RESUSCITATE. Would not want life support mechanical ventilation or anything heroic done. I'm hoping we can turn around and get her out of the hospital. Prognosis is not very good. I had a very honest discussion with her today. She currently on antibiotics for Pseudomonas including Levaquin and Zosyn. Progress note dated 06/07/2016 71-year-old female well-known to me. The patient has a history of stage IV her end-stage COPD. She been in the hospital since last Tuesday. Bronchoscopy was done by me last Tuesday or a week ago today, revealed evidence of Pseudomonas for which he is being treated. The patient is a no code. No intubation. No resuscitation. She confirms that today with family members at the bedside. She does seem a bit better today. Less short of breath. Lots of chest congestion. Still coughing. Producing some yellow phlegm. No fever no chills. No chest pain. Objective - Vital Signs Vital signs: Vital Signs Temp 96.3 F L 06/15/16 07:00 Pulse 96 06/15/16 09:01 Resp 18 06/15/16 07:00 BP 146/82 06/15/16 07:00 Pulse Ox 92 L 06/15/16 07:00 Intake & Output 06/14/16 06/15/16 06/15/16 18:59 06:59 18:59 Intake Total 1050 300 Balance 1050 300 Weight 54 kg Intake: Intake, IV Titration 50 Amount Piperacillin-Tazobactam 3 50 .375 gm In Dextrose/Water 1 50ml.bag @ 12.5 mls/hr IVPB Q8HR [facility] Rx#: [id number] Oral 1000 300 Other: # Voids 3 2 2 - Exam Mildly tachypneic and dyspneic. Oriented 3. HEENT examination is grossly unremarkable. Mucous membranes are moist. Neck supple. Full range of motion. No adenopathy or thyromegaly. Cardiovascular examination reveals regular rhythm rate. S1-S2 normal. No S3- S4 or murmur. Lungs reveal severely diminished breath sounds. A few scattered mild wheezes. No rhonchi. No crackles. Breath sounds are present significantly diminished. And abdominal examinations unremarkable. Extremities are intact. - Labs CBC & Chem 7: 06/13/16 08:43 06/13/16 08:43 Labs: Abnormal Lab Results - Last 24 Hours (Table) 06/14/16 06/14/16 06/14/16 Range/Units 12:29 16:42 20:39 POC Glucose (mg/dL) 122 H 154 H 154 H (75-99) mg/dL 06/15/16 Range/Units 07:22 POC Glucose (mg/dL) 130 H (75-99) mg/dL Microbiology - Last 24 Hours (Table) 06/09/16 13:15 Blood Culture - Preliminary Blood No Growth after 120 hours Assessment and Plan (1) Pneumonia Status: Acute (2) Acute exacerbation of chronic obstructive airways disease Status: Acute (3) Failure of outpatient treatment Status: Acute (4) Left lower lobe pneumonia Status: Acute Plan: Plan dated 06/14/2016 This patient has very severe end-stage COPD with an FEV1 that's about 2425% of predicted. Her bronchoscopy recently showed evidence of Pseudomonas. She's being treated for that. She has a history of chronic tobacco use quit in March 2016 as well as hypertension and heart failure. She is oxygen- dependent and steroid-dependent. Anyway we did talk about CODE STATUS. The patient will hopefully be able to be discharged in next 24-48 hours. I did recommend halfway. She refuses. I also talked about CODE STATUS. She is a DO NOT RESUSCITATE. Plan dated 06/15/2016 This 71-year-old female has a history of stage IV or end-stage COPD. She's doing reasonably well. Had a recent bronchoscopy will Pseudomonas. She's been treated for that. Is probably more of tracheobronchitis and actual pneumonia. She has severe COPD which is oxygen and steroid dependent. We did talk about CODE STATUS. She is a no code. Does not want to be on life. Additional recommendations suggestions are forthcoming. She does admit of boost up her Xanax dose. Time with Patient: Less than 30
[2016-06-15 11:35] LABS: Glucose,Whole Blood 134 mg/dL (75-99)
[2016-06-15] MEDS: MULTIVITAMINS, THERA 1 EACH TAB PO SCH (12:11)
[2016-06-15] MEDS: LEVOFLOXACIN 750 MG TAB PO SCH (13:34)
[2016-06-15] MEDS ORDERED: ZOLPIDEM 5 MG TAB PO PRN (16:06)
[2016-06-15] MEDS: FUROSEMIDE 20 MG TAB PO SCH (16:17)
--- NOTE | 2016-06-15 16:20 | P.PN ---
Subjective Date of service 06/15/2016 Personal being dictated for Dr. Coulter. Interval history: This a 71-year-old female in a with acute exacerbation of end- stage COPD, right lower lobe pneumonia in a patient with recent bronchoscopy pleural cultures reporting pseudomonas aeruginosa and multiple other medical issues. Mildly improved shortness of breath at rest on 3L nasal cannula. Productive cough with yellow sputum. States increased anxiety from harsh cough and reports has not slept since admission. Maintained on Levaquin, Zosyn, nebulized bronchodilators, IV steroids. Afebrile. Denies chest pain or palpitations. Afebrile. Objective - Vital Signs Vital signs: Vital Signs Temp 96.3 F L 06/15/16 07:00 Pulse 92 06/15/16 11:40 Resp 18 06/15/16 07:00 BP 146/82 06/15/16 07:00 Pulse Ox 92 L 06/15/16 07:00 Intake & Output 06/14/16 06/15/16 06/15/16 18:59 06:59 18:59 Intake Total 1050 300 Balance 1050 300 Weight 54 kg Intake: Intake, IV Titration 50 Amount Piperacillin-Tazobactam 3 50 .375 gm In Dextrose/Water 1 50ml.bag @ 12.5 mls/hr IVPB Q8HR [facility] Rx#: [id number] Oral 1000 300 Other: # Voids 3 2 2 - Exam PHYSICAL EXAM: VITAL SIGNS: As above GENERAL: [Sitting up in bed, respiratory effort increased] HEENT: [Pupils equal conjunctiva normal.] NECK: [Supple, no JVD] RESPIRATORY EFFORT:[Increased] LUNGS: Diminished throughout, mildly improved air entry, fine occasional mild expiratory wheezing. No crackles CARDIOVASCULAR[regular S1 and S2] GI: [Abdomen soft, nontender, positive bowel sounds.] PSYCH: [Alert and oriented -3, mood and affect normal.] NEURO: No focal deficits, moves all 4 extremities, strength and sensation intact. Microbiology 06/09/16 12:05 Blood Blood Culture - Final No Growth after 144 hours 06/09/16 13:15 Blood Blood Culture - Preliminary No Growth after 120 hours 06/09/16 17:10 Urine,Clean Catch Urine Culture - Final 06/09/16 16:17 Sputum Gram Stain - Final 06/09/16 16:17 Sputum Sputum Culture - Final - Labs CBC & Chem 7: 06/13/16 08:43 06/13/16 08:43 Labs: Abnormal Lab Results - Last 24 Hours (Table) 06/14/16 06/14/16 06/15/16 Range/Units 16:42 20:39 07:22 POC Glucose (mg/dL) 154 H 154 H 130 H (75-99) mg/dL 06/15/16 Range/Units 11:33 POC Glucose (mg/dL) 134 H (75-99) mg/dL Microbiology - Last 24 Hours (Table) 06/09/16 13:15 Blood Culture - Preliminary Blood No Growth after 120 hours Assessment and Plan Plan: 1. Acute COPD exacerbation with right lower lobe pneumonia, possibly gram- negative, possibly aspiration with early sepsis, with failure of outpatient treatment. 2. [Leukocytosis]. 3. [Increased MCV]. 4. [History of nicotine dependence, quit in March 2016]. 5. [Mild to moderate protein calorie malnutrition, BMI 19.6 with hypoalbuminemia ]. 6. [Recent bronchoscopy, pleural cultures positive pseudomonas aeruginosa]. 7. [History of CHF]. 8. History of COPD, end-stage 9. Chronic hypoxic respiratory failure on home O2 of 3 L 10. History of anxiety, not otherwise specified 11. No code, no CPR, no intubation Plan: Continue on nebulized bronchodilators, IV steroids, antibiotics, monitoring, and symptomatic treatment. Xanax dose adjusted. Melatonin, Ambien added to med regime for complaints of insomnia since admission.Follow closely with pulmonary. Prognosis guarded given multiple complex medical issues. Further recommendations to follow. The impression and plan of care has been dictated as directed. : I performed a H&P examination of this patient and discussed the same with the dictator. I agree with the dictator's note. Any additional findings/opinions/ etc. will be noted.
[2016-06-15 16:36] LABS: Glucose,Whole Blood 132 mg/dL (75-99)
[2016-06-15] MEDS: MELATONIN 3 MG TABLET PO SCH (21:18)
[2016-06-15 21:22] LABS: Glucose,Whole Blood 165 mg/dL (75-99)
[2016-06-16] MEDS: methylPREDNISolone SOD SUCCI 125 MG/2 ML VIAL IV SCH ×3 (06:27→17:24)
[2016-06-16] MEDS: IPRATROPIUM-ALBUTEROL 3 ML NEB INHALATION PRN ×4 (07:02→21:32)
[2016-06-16] MEDS: FORMOTEROL FUMARATE 20 MCG/2 ML NEBU INHALATION SCH ×2 (07:02→21:32)
[2016-06-16] MEDS: BUDESONIDE 1 MG/2 ML NEBU INHALATION SCH ×2 (07:02→21:32)
[2016-06-16 07:32] LABS: Glucose,Whole Blood 142 mg/dL (75-99)
[2016-06-16] MEDS: THEOPHYLLINE 24 HOUR 200 MG CAP.ER.24H PO SCH ×2 (08:20→21:09)
[2016-06-16] MEDS: PANTOPRAZOLE 40 MG TABLET PO SCH (08:21)
[2016-06-16] MEDS: INSULIN LISPRO (humaLOG) 300 UNIT/3 ML VIAL SQ SCH ×4 (08:21→21:10)
[2016-06-16] MEDS: NYSTATIN 100,000 UNIT/ML SUSP 500,000 UNIT/5 ML CUP PO SCH ×4 (08:21→21:09)
[2016-06-16] MEDS: ASPIRIN 81 MG CHEW PO SCH (08:21)
[2016-06-16] MEDS: CALCIUM CARB-VIT D 500MG-200UN 1 EACH TAB PO SCH (08:21)
[2016-06-16] MEDS: METOPROLOL SUCCINATE (ER) 25 MG TAB.ER.24H PO SCH (08:21)
[2016-06-16] MEDS: HYDROcodone/APAP 5-325MG 1 EACH TAB PO PRN ×2 (08:27→15:34)
[2016-06-16] MEDS: ALPRAZolam 0.5 MG TAB PO PRN ×3 (08:28→21:09)
--- NOTE | 2016-06-16 11:50 | P.PN ---
Subjective Progress note dated 06/14/2016 This is a 71-year-old female well-known to me. She has a history of stage IV very severe/end-stage COPD. She had bronchoscopy done last Tuesday. She was admitted the following day on Tuesday. We identified Pseudomonas from the BAL. We did also sample lesion that was suspicious in the right mainstem her distal right mainstem. It was negative cytologically. I believe either evaluated that placed before. Anyway we talked to Xochitl today about CODE STATUS. She is a DO NOT RESUSCITATE. Would not want life support mechanical ventilation or anything heroic done. I'm hoping we can turn around and get her out of the hospital. Prognosis is not very good. I had a very honest discussion with her today. She currently on antibiotics for Pseudomonas including Levaquin and Zosyn. Progress note dated 06/07/2016 71-year-old female well-known to me. The patient has a history of stage IV her end-stage COPD. She been in the hospital since last Tuesday. Bronchoscopy was done by me last Tuesday or a week ago today, revealed evidence of Pseudomonas for which he is being treated. The patient is a no code. No intubation. No resuscitation. She confirms that today with family members at the bedside. She does seem a bit better today. Less short of breath. Lots of chest congestion. Still coughing. Producing some yellow phlegm. No fever no chills. No chest pain. Progress note dated 06/16/2016 71-year-old female with history of end-stage COPD. She has stage IV disease based on the Gold criteria. Anyway she's been in the hospital for about a week or so. Should bronchoscopy with me on Tuesday last week. Was admitted on Tuesday. Continues to have very slow improvement. We'll walked into the room , Rufina from respiratory therapy with providing her with mechanical percussion. Anyway the patient's complaints include primarily increasing shortness of breath with any activity. We did discuss CODE STATUS. She is a no code. Would not want intubation or mechanical ventilation which I think is very appropriate. The bronchoscopy revealed Pseudomonas which is currently being treated. Objective - Vital Signs Vital signs: Vital Signs Temp 97.9 F 06/16/16 07:00 Pulse 80 06/16/16 07:27 Resp 18 06/16/16 07:00 BP 139/77 06/16/16 07:00 Pulse Ox 97 06/16/16 07:00 Intake & Output 06/15/16 06/16/16 06/16/16 18:59 06:59 18:59 Intake Total 600 550 240 Balance 600 550 240 Intake: Oral 600 550 240 Other: # Voids 2 1 - Exam Mildly tachypneic and dyspneic. Oriented 3. HEENT examination is grossly unremarkable. Mucous membranes are moist. Neck supple. Full range of motion. No adenopathy or thyromegaly. Cardiovascular examination reveals regular rhythm rate. S1-S2 normal. No S3- S4 or murmur. Lungs reveal severely diminished breath sounds. A few scattered mild wheezes. No rhonchi. No crackles. Breath sounds are present significantly diminished. And abdominal examinations unremarkable. Extremities are intact. - Labs CBC & Chem 7: 06/13/16 08:43 06/13/16 08:43 Labs: Abnormal Lab Results - Last 24 Hours (Table) 06/15/16 06/15/16 06/16/16 Range/Units 16:30 21:12 06:47 POC Glucose (mg/dL) 132 H 165 H 142 H (75-99) mg/dL Microbiology - Last 24 Hours (Table) 06/09/16 13:15 Blood Culture - Final Blood No Growth after 144 hours Assessment and Plan (1) Pneumonia Status: Acute (2) Acute exacerbation of chronic obstructive airways disease Status: Acute (3) Failure of outpatient treatment Status: Acute (4) Left lower lobe pneumonia Status: Acute Plan: Plan dated 06/14/2016 This patient has very severe end-stage COPD with an FEV1 that's about 2425% of predicted. Her bronchoscopy recently showed evidence of Pseudomonas. She's being treated for that. She has a history of chronic tobacco use quit in March 2016 as well as hypertension and heart failure. She is oxygen- dependent and steroid-dependent. Anyway we did talk about CODE STATUS. The patient will hopefully be able to be discharged in next 24-48 hours. I did recommend skilled nursing. She refuses. I also talked about CODE STATUS. She is a DO NOT RESUSCITATE. Plan dated 06/15/2016 This 71-year-old female has a history of stage IV or end-stage COPD. She's doing reasonably well. Had a recent bronchoscopy will Pseudomonas. She's been treated for that. Is probably more of tracheobronchitis and actual pneumonia. She has severe COPD which is oxygen and steroid dependent. We did talk about CODE STATUS. She is a no code. Does not want to be on life. Additional recommendations suggestions are forthcoming. She does admit of boost up her Xanax dose. Plan dated 06/16/2016 The patient continues to show very minimal daily improvement. In fact she really hasn't improved all that much in the week she's been here. She is really not on the other way though. She continues on oxygen breathing treatment steroids antibiotics. I asked for a flutter valve at the bedside. They are doing well on mechanical percussion as well. Additional recommendations suggestions are forthcoming. We did establish CODE STATUS on her. She would not want intubation mechanical ventilation. She likely would never, the mechanical ventilator within up with a tracheostomy and probably in the put a specialized nursing facility for long-term care. Anyway that issues been resolved. We'll continue to follow. Prognosis is very guarded. Time with Patient: Less than 30
[2016-06-16 12:13] LABS: Glucose,Whole Blood 123 mg/dL (75-99)
[2016-06-16] MEDS: LEVOFLOXACIN 750 MG TAB PO SCH (13:28)
[2016-06-16] MEDS: MULTIVITAMINS, THERA 1 EACH TAB PO SCH (13:28)
[2016-06-16 17:25] LABS: Glucose,Whole Blood 154 mg/dL (75-99)
--- NOTE | 2016-06-16 17:40 | P.PN ---
Subjective Date of service 06/16/2016 Personal being dictated for Dr. Coulter. Interval history: This a 71-year-old female in a with acute exacerbation of end- stage COPD, right lower lobe pneumonia in a patient with recent bronchoscopy pleural cultures reporting pseudomonas aeruginosa and multiple other medical issues. Slowly improving shortness of breath. Slept better last night. Maintained on Levaquin, Zosyn, nebulized bronchodilators, IV steroids and CPT. Afebrile. Denies chest pain or palpitations. Afebrile. Objective - Vital Signs Vital signs: Vital Signs Temp 97.9 F 06/16/16 15:00 Pulse 80 06/16/16 17:06 Resp 20 06/16/16 15:00 BP 143/95 06/16/16 15:00 Pulse Ox 95 06/16/16 15:00 Intake & Output 06/15/16 06/16/16 06/16/16 18:59 06:59 18:59 Intake Total 600 550 480 Balance 600 550 480 Intake: Oral 600 550 480 Other: # Voids 2 1 3 # Bowel Movements 1 - Exam PHYSICAL EXAM: VITAL SIGNS: As above GENERAL: [Sitting up in bed, respiratory effort increased] HEENT: [Pupils equal conjunctiva normal.] NECK: [Supple, no JVD] RESPIRATORY EFFORT:[Increased] LUNGS: Diminished throughout, fine occasional mild expiratory wheezing. No crackles CARDIOVASCULAR[regular S1 and S2] GI: [Abdomen soft, nontender, positive bowel sounds.] PSYCH: [Alert and oriented -3, mood and affect normal.] NEURO: No focal deficits, moves all 4 extremities, strength and sensation intact. Microbiology 06/09/16 12:05 Blood Blood Culture - Final No Growth after 144 hours 06/09/16 13:15 Blood Blood Culture - Preliminary No Growth after 120 hours 06/09/16 17:10 Urine,Clean Catch Urine Culture - Final 06/09/16 16:17 Sputum Gram Stain - Final 06/09/16 16:17 Sputum Sputum Culture - Final - Labs CBC & Chem 7: 06/13/16 08:43 06/13/16 08:43 Labs: Abnormal Lab Results - Last 24 Hours (Table) 06/15/16 06/16/16 06/16/16 Range/Units 21:12 06:47 11:59 POC Glucose (mg/dL) 165 H 142 H 123 H (75-99) mg/dL 06/16/16 Range/Units 16:57 POC Glucose (mg/dL) 154 H (75-99) mg/dL Microbiology - Last 24 Hours (Table) 06/09/16 13:15 Blood Culture - Final Blood No Growth after 144 hours Assessment and Plan Plan: 1. Acute COPD exacerbation with right lower lobe pneumonia, possibly gram- negative, possibly aspiration with early sepsis, with failure of outpatient treatment. 2. [Leukocytosis]. 3. [Increased MCV]. 4. [History of nicotine dependence, quit in March 2016]. 5. [Mild to moderate protein calorie malnutrition, BMI 19.6 with hypoalbuminemia ]. 6. [Recent bronchoscopy, pleural cultures positive pseudomonas aeruginosa]. 7. [History of CHF]. 8. History of COPD, end-stage 9. Chronic hypoxic respiratory failure on home O2 of 3 L 10. History of anxiety, not otherwise specified 11. No code, no CPR, no intubation Plan: Continue on nebulized bronchodilators, IV steroids, antibiotics, melatonin , Ambien, monitoring, and symptomatic treatment.CPT. Follow closely with pulmonary. Prognosis guarded given multiple complex medical issues. Further recommendations to follow. The impression and plan of care has been dictated as directed. : I performed a H&P examination of this patient and discussed the same with the dictator. I agree with the dictator's note. Any additional findings/opinions/ etc. will be noted.
[2016-06-16] MEDS: MELATONIN 3 MG TABLET PO SCH (21:09)
[2016-06-16 21:18] LABS: Glucose,Whole Blood 241 mg/dL (75-99)
[2016-06-16 23:11] LABS: Prothrombin Time 9.9 sec (9.0-12.0)
[2016-06-16 23:12] LABS: Basophils # (A) 0.1 k/uL (0-0.2); Basophils % (A) 1 %; CH 31.6; CHCM 31.9; Eosinophils % (A) 0 %; HCT 38.7 % (34.0-46.0); HDW 2.46; HGB 12.4 gm/dL (11.4-16.0); Luc # (Auto) 0.13; Luc % (Auto) 1; Lymphocytes # (A) 0.2 k/uL (1.0-4.8); Lymphocytes % (A) 2 %; MCH 31.9 pg (25.0-35.0); MCV 99.4 fL (80.0-100.0); Monocytes # (A) 0.6 k/uL (0-1.0); Monocytes % (A) 6 %; Neutrophils # (A) 9.1 k/uL (1.3-7.7); Neutrophils % (A) 90 %; RDW 14.1 % (11.5-15.5); WBC 10.1 k/uL (3.8-10.6); WBC (Perox) 10.91
--- NOTE | 2016-06-16 23:13 | XR ---
EXAM: XR Chest, 1 View. CLINICAL HISTORY: Reason: SOB coughing up blood TECHNIQUE: Frontal view of the chest. COMPARISON: Chest radiograph 06/10/2016 FINDINGS: Lungs: Lungs are hyper aerated. Increased interstitial opacities in both lung bases which may reflect chronic interstitial fibrotic changes. No acute pulmonary infiltrates or consolidations. Pleural space: No definite pleural effusion identified. No pneumothorax. Heart: Heart size and mediastinal structures are within normal limits. Mediastinum: Unremarkable. Bones/joints: Unremarkable. IMPRESSION: Hyperaeration raising possibility of COPD. Bibasilar interstitial opacities which may reflect chronic interstitial fibrotic changes. No evidence of acute cardiac pulmonary disease.
[2016-06-17] MEDS: HYDROcodone/APAP 5-325MG 1 EACH TAB PO PRN ×3 (00:05→22:30)
[2016-06-17] MEDS: methylPREDNISolone SOD SUCCI 125 MG/2 ML VIAL IV SCH ×4 (00:05→17:43)
[2016-06-17] MEDS: TEMAZEPAM 15 MG CAP PO PRN ×2 (00:30→21:35)
[2016-06-17] MEDS: ALPRAZolam 0.5 MG TAB PO PRN ×3 (05:04→19:06)
[2016-06-17 07:45] LABS: Glucose,Whole Blood 159 mg/dL (75-99)
[2016-06-17] MEDS: INSULIN LISPRO (humaLOG) 300 UNIT/3 ML VIAL SQ SCH ×4 (08:13→21:31)
[2016-06-17] MEDS: PANTOPRAZOLE 40 MG TABLET PO SCH (08:13)
[2016-06-17] MEDS: METOPROLOL SUCCINATE (ER) 25 MG TAB.ER.24H PO SCH (08:13)
[2016-06-17] MEDS: NYSTATIN 100,000 UNIT/ML SUSP 500,000 UNIT/5 ML CUP PO SCH ×4 (08:13→21:31)
[2016-06-17] MEDS: CALCIUM CARB-VIT D 500MG-200UN 1 EACH TAB PO SCH (08:13)
[2016-06-17] MEDS: ASPIRIN 81 MG CHEW PO SCH (08:13)
[2016-06-17] MEDS: THEOPHYLLINE 24 HOUR 200 MG CAP.ER.24H PO SCH ×2 (08:14→20:40)
[2016-06-17] MEDS: IPRATROPIUM-ALBUTEROL 3 ML NEB INHALATION PRN ×4 (08:21→19:19)
[2016-06-17] MEDS: BUDESONIDE 1 MG/2 ML NEBU INHALATION SCH ×2 (08:21→19:19)
[2016-06-17] MEDS: FORMOTEROL FUMARATE 20 MCG/2 ML NEBU INHALATION SCH ×2 (08:21→19:19)
[2016-06-17 12:26] LABS: Glucose,Whole Blood 137 mg/dL (75-99)
[2016-06-17] MEDS: MULTIVITAMINS, THERA 1 EACH TAB PO SCH (12:29)
[2016-06-17] MEDS: LEVOFLOXACIN 750 MG TAB PO SCH (12:29)
--- NOTE | 2016-06-17 13:07 | P.PN ---
Subjective Progress note dated 06/14/2016 This is a 71-year-old female well-known to me. She has a history of stage IV very severe/end-stage COPD. She had bronchoscopy done last Tuesday. She was admitted the following day on Tuesday. We identified Pseudomonas from the BAL. We did also sample lesion that was suspicious in the right mainstem her distal right mainstem. It was negative cytologically. I believe either evaluated that placed before. Anyway we talked to Xochitl today about CODE STATUS. She is a DO NOT RESUSCITATE. Would not want life support mechanical ventilation or anything heroic done. I'm hoping we can turn around and get her out of the hospital. Prognosis is not very good. I had a very honest discussion with her today. She currently on antibiotics for Pseudomonas including Levaquin and Zosyn. Progress note dated 06/07/2016 71-year-old female well-known to me. The patient has a history of stage IV her end-stage COPD. She been in the hospital since last Tuesday. Bronchoscopy was done by me last Tuesday or a week ago today, revealed evidence of Pseudomonas for which he is being treated. The patient is a no code. No intubation. No resuscitation. She confirms that today with family members at the bedside. She does seem a bit better today. Less short of breath. Lots of chest congestion. Still coughing. Producing some yellow phlegm. No fever no chills. No chest pain. Progress note dated 06/16/2016 71-year-old female with history of end-stage COPD. She has stage IV disease based on the Gold criteria. Anyway she's been in the hospital for about a week or so. Should bronchoscopy with me on Tuesday last week. Was admitted on Tuesday. Continues to have very slow improvement. We'll walked into the room , Rufina from respiratory therapy with providing her with mechanical percussion. Anyway the patient's complaints include primarily increasing shortness of breath with any activity. We did discuss CODE STATUS. She is a no code. Would not want intubation or mechanical ventilation which I think is very appropriate. The bronchoscopy revealed Pseudomonas which is currently being treated. Progress note dated 06/17/2016 71-year-old female with a history of end stage COPD. Apparently last night she had an episode which had some epistaxis. Apparently the blood soda collected inclined coli dilated in the hypopharynx and she eventually was able to cough it up. For. Time there, she was not doing very well. Her sats were very low and she was tachycardic and quite Neck and dyspneic. An 18 was called. When she was able to cough up the blood clot, things seemed to settle down and we decided to keep her on the fourth floor. She is a DO NOT RESUSCITATE. Anyway from the breathing standpoint doing today. Feeling much less short of breath. The patient is DO NOT RESUSCITATE patient. She had a bronch done about 8 or 9 days ago which was positive for Pseudomonas. As currently being treated. Objective - Vital Signs Vital signs: Vital Signs Temp 96.7 F L 06/17/16 07:00 Pulse 80 06/17/16 11:36 Resp 19 06/17/16 07:00 BP 129/73 06/17/16 07:00 Pulse Ox 95 06/17/16 08:21 Intake & Output 06/16/16 06/17/16 06/17/16 18:59 06:59 18:59 Intake Total 480 240 Balance 480 240 Weight 54.5 kg Intake: Oral 480 240 Other: Voiding Method Toilet Toilet Bedpan # Voids 2 1 # Bowel Movements 1 - Exam Mildly tachypneic and dyspneic. Oriented 3. HEENT examination is grossly unremarkable. Mucous membranes are moist. Neck supple. Full range of motion. No adenopathy or thyromegaly. Cardiovascular examination reveals regular rhythm rate. S1-S2 normal. No S3- S4 or murmur. Lungs reveal severely diminished breath sounds. A few scattered mild wheezes. No rhonchi. No crackles. Breath sounds are present significantly diminished. And abdominal examinations unremarkable. Extremities are intact. - Labs CBC & Chem 7: 06/16/16 22:46 06/13/16 08:43 Labs: Abnormal Lab Results - Last 24 Hours (Table) 06/16/16 06/16/16 06/16/16 Range/Units 16:57 20:47 22:45 Neutrophils # (1.3-7.7) k/uL Lymphocytes # (1.0-4.8) k/uL D-Dimer 0.61 H (<0.60) mg/L FEU POC Glucose (mg/dL) 154 H 241 H (75-99) mg/dL 06/16/16 06/17/16 06/17/16 Range/Units 22:46 07:17 11:57 Neutrophils # 9.1 H (1.3-7.7) k/uL Lymphocytes # 0.2 L (1.0-4.8) k/uL D-Dimer (<0.60) mg/L FEU POC Glucose (mg/dL) 159 H 137 H (75-99) mg/dL Assessment and Plan (1) Pneumonia Status: Acute (2) Acute exacerbation of chronic obstructive airways disease Status: Acute (3) Failure of outpatient treatment Status: Acute (4) Left lower lobe pneumonia Status: Acute Plan: Plan dated 06/14/2016 This patient has very severe end-stage COPD with an FEV1 that's about 2425% of predicted. Her bronchoscopy recently showed evidence of Pseudomonas. She's being treated for that. She has a history of chronic tobacco use quit in March 2016 as well as hypertension and heart failure. She is oxygen- dependent and steroid-dependent. Anyway we did talk about CODE STATUS. The patient will hopefully be able to be discharged in next 24-48 hours. I did recommend long term. She refuses. I also talked about CODE STATUS. She is a DO NOT RESUSCITATE. Plan dated 06/15/2016 This 71-year-old female has a history of stage IV or end-stage COPD. She's doing reasonably well. Had a recent bronchoscopy will Pseudomonas. She's been treated for that. Is probably more of tracheobronchitis and actual pneumonia. She has severe COPD which is oxygen and steroid dependent. We did talk about CODE STATUS. She is a no code. Does not want to be on life. Additional recommendations suggestions are forthcoming. She does admit of boost up her Xanax dose. Plan dated 06/16/2016 The patient continues to show very minimal daily improvement. In fact she really hasn't improved all that much in the week she's been here. She is really not on the other way though. She continues on oxygen breathing treatment steroids antibiotics. I asked for a flutter valve at the bedside. They are doing well on mechanical percussion as well. Additional recommendations suggestions are forthcoming. We did establish CODE STATUS on her. She would not want intubation mechanical ventilation. She likely would never, the mechanical ventilator within up with a tracheostomy and probably in the put a specialized nursing facility for long-term care. Anyway that issues been resolved. We'll continue to follow. Prognosis is very guarded. Plan dated 06/17/2016 We'll continue to treat the patient very conservatively. I think another bronchoscopy would put her over the edge and with it and cause her in the cullen mechanical ventilator. Not interested in that right now. Had a very close call last night. I did tell the nurse to titrate down her FiO2. She was at 3 L neck turned up to 6 last night. Today she still on 6. They can be turned back down. Other than that her medications labs and x-rays are all reviewed. Prognosis is very poor. Time with Patient: Less than 30
[2016-06-17] MEDS: FUROSEMIDE 20 MG TAB PO SCH (14:25)
--- NOTE | 2016-06-17 17:17 | P.PN ---
Subjective Date of service 06/17/2016 Personal being dictated for Dr. Coulter. Interval history: This a 71-year-old female in a with acute exacerbation of end- stage COPD, right lower lobe pneumonia in a patient with recent bronchoscopy pleural cultures reporting pseudomonas aeruginosa and multiple other medical issues. Maintained on Levaquin, Zosyn, nebulized bronchodilators, IV steroids and CPT. Patient has been having intermittent nosebleeds. Last night became tachycardic,dyspneic. A team called. Coughed up blood clot with improvement of symptoms thereafter. Feels better this morning, remains significantly diminished, maintaining O2 sats of 91% on 3 L nasal cannula O2. Afebrile. Denies chest pain or palpitations. Afebrile. Objective - Vital Signs Vital signs: Vital Signs Temp 96.9 F L 06/17/16 15:00 Pulse 84 06/17/16 15:26 Resp 21 06/17/16 15:00 BP 118/59 06/17/16 15:00 Pulse Ox 91 L 06/17/16 15:00 Intake & Output 06/16/16 06/17/16 06/17/16 18:59 06:59 18:59 Intake Total 480 240 Balance 480 240 Weight 54.5 kg 54.5 kg Intake: Oral 480 240 Other: Voiding Method Toilet Toilet Bedpan # Voids 2 1 3 # Bowel Movements 1 - Exam PHYSICAL EXAM: VITAL SIGNS: As above GENERAL: [Sitting up in bed, respiratory effort mildly increased] HEENT: [Pupils equal conjunctiva normal.] NECK: [Supple, no JVD] RESPIRATORY EFFORT:[Increased] LUNGS: Diminished throughout, fine occasional mild expiratory wheezing. No crackles, no rhonchi CARDIOVASCULAR[regular S1 and S2] GI: [Abdomen soft, nontender, positive bowel sounds.] PSYCH: [Alert and oriented -3, mood and affect normal.] NEURO: No focal deficits, moves all 4 extremities, strength and sensation intact. Microbiology 06/09/16 12:05 Blood Blood Culture - Final No Growth after 144 hours 06/09/16 13:15 Blood Blood Culture - Preliminary No Growth after 120 hours 06/09/16 17:10 Urine,Clean Catch Urine Culture - Final 06/09/16 16:17 Sputum Gram Stain - Final 06/09/16 16:17 Sputum Sputum Culture - Final - Labs CBC & Chem 7: 06/16/16 22:46 06/13/16 08:43 Labs: Abnormal Lab Results - Last 24 Hours (Table) 06/16/16 06/16/16 06/16/16 Range/Units 16:57 20:47 22:45 Neutrophils # (1.3-7.7) k/uL Lymphocytes # (1.0-4.8) k/uL D-Dimer 0.61 H (<0.60) mg/L FEU POC Glucose (mg/dL) 154 H 241 H (75-99) mg/dL 06/16/16 06/17/16 06/17/16 Range/Units 22:46 07:17 11:57 Neutrophils # 9.1 H (1.3-7.7) k/uL Lymphocytes # 0.2 L (1.0-4.8) k/uL D-Dimer (<0.60) mg/L FEU POC Glucose (mg/dL) 159 H 137 H (75-99) mg/dL Assessment and Plan Plan: 1. Acute COPD exacerbation with right lower lobe pneumonia, possibly gram- negative, possibly aspiration with early sepsis, with failure of outpatient treatment. 2. [Leukocytosis]. 3. [Increased MCV]. 4. [History of nicotine dependence, quit in March 2016]. 5. [Mild to moderate protein calorie malnutrition, BMI 19.6 with hypoalbuminemia ]. 6. [Recent bronchoscopy, pleural cultures positive pseudomonas aeruginosa]. 7. [History of CHF]. 8. History of COPD, end-stage 9. Chronic hypoxic respiratory failure on home O2 of 3 L 10. History of anxiety, not otherwise specified 11. No code, no CPR, no intubation 12. Epistaxis Plan: Continue on nebulized bronchodilators, IV steroids, antibiotics, melatonin , Ambien, monitoring, and symptomatic treatment.CPT. Prognosis guarded given multiple complex medical issues. Follow closely with pulmonary. Further recommendations to follow. The impression and plan of care has been dictated as directed. : I performed a H&P examination of this patient and discussed the same with the dictator. I agree with the dictator's note. Any additional findings/opinions/ etc. will be noted.
[2016-06-17 17:40] LABS: Glucose,Whole Blood 191 mg/dL (75-99)
[2016-06-17] MEDS: MELATONIN 3 MG TABLET PO SCH (20:40)
[2016-06-17 20:56] LABS: Glucose,Whole Blood 145 mg/dL (75-99)
[2016-06-18] MEDS: methylPREDNISolone SOD SUCCI 125 MG/2 ML VIAL IV SCH ×2 (00:09→06:20)
[2016-06-18] MEDS: ALPRAZolam 0.5 MG TAB PO PRN ×3 (05:02→16:39)
[2016-06-18 07:03] LABS: Glucose,Whole Blood 145 mg/dL (75-99)
[2016-06-18] MEDS: BUDESONIDE 1 MG/2 ML NEBU INHALATION SCH (08:09)
[2016-06-18] MEDS: IPRATROPIUM-ALBUTEROL 3 ML NEB INHALATION PRN ×2 (08:10→14:55)
[2016-06-18] MEDS: FORMOTEROL FUMARATE 20 MCG/2 ML NEBU INHALATION SCH (08:10)
[2016-06-18] MEDS: NYSTATIN 100,000 UNIT/ML SUSP 500,000 UNIT/5 ML CUP PO SCH ×2 (08:30→12:45)
[2016-06-18] MEDS: THEOPHYLLINE 24 HOUR 200 MG CAP.ER.24H PO SCH (08:30)
[2016-06-18] MEDS: PANTOPRAZOLE 40 MG TABLET PO SCH (08:30)
[2016-06-18] MEDS: INSULIN LISPRO (humaLOG) 300 UNIT/3 ML VIAL SQ SCH ×2 (08:31→12:45)
[2016-06-18] MEDS: ASPIRIN 81 MG CHEW PO SCH (08:31)
[2016-06-18] MEDS: METOPROLOL SUCCINATE (ER) 25 MG TAB.ER.24H PO SCH (08:31)
[2016-06-18] MEDS: CALCIUM CARB-VIT D 500MG-200UN 1 EACH TAB PO SCH (08:31)
[2016-06-18] MEDS: HYDROcodone/APAP 5-325MG 1 EACH TAB PO PRN (08:40)
--- NOTE | 2016-06-18 10:26 | P.PN ---
Subjective Progress note dated 06/14/2016 This is a 71-year-old female well-known to me. She has a history of stage IV very severe/end-stage COPD. She had bronchoscopy done last Tuesday. She was admitted the following day on Tuesday. We identified Pseudomonas from the BAL. We did also sample lesion that was suspicious in the right mainstem her distal right mainstem. It was negative cytologically. I believe either evaluated that placed before. Anyway we talked to Xochitl today about CODE STATUS. She is a DO NOT RESUSCITATE. Would not want life support mechanical ventilation or anything heroic done. I'm hoping we can turn around and get her out of the hospital. Prognosis is not very good. I had a very honest discussion with her today. She currently on antibiotics for Pseudomonas including Levaquin and Zosyn. Progress note dated 06/07/2016 71-year-old female well-known to me. The patient has a history of stage IV her end-stage COPD. She been in the hospital since last Tuesday. Bronchoscopy was done by me last Tuesday or a week ago today, revealed evidence of Pseudomonas for which he is being treated. The patient is a no code. No intubation. No resuscitation. She confirms that today with family members at the bedside. She does seem a bit better today. Less short of breath. Lots of chest congestion. Still coughing. Producing some yellow phlegm. No fever no chills. No chest pain. Progress note dated 06/16/2016 71-year-old female with history of end-stage COPD. She has stage IV disease based on the Gold criteria. Anyway she's been in the hospital for about a week or so. Should bronchoscopy with me on Tuesday last week. Was admitted on Tuesday. Continues to have very slow improvement. We'll walked into the room , Rufina from respiratory therapy with providing her with mechanical percussion. Anyway the patient's complaints include primarily increasing shortness of breath with any activity. We did discuss CODE STATUS. She is a no code. Would not want intubation or mechanical ventilation which I think is very appropriate. The bronchoscopy revealed Pseudomonas which is currently being treated. Progress note dated 06/17/2016 71-year-old female with a history of end stage COPD. Apparently last night she had an episode which had some epistaxis. Apparently the blood soda collected inclined coli dilated in the hypopharynx and she eventually was able to cough it up. For. Time there, she was not doing very well. Her sats were very low and she was tachycardic and quite Neck and dyspneic. An 18 was called. When she was able to cough up the blood clot, things seemed to settle down and we decided to keep her on the fourth floor. She is a DO NOT RESUSCITATE. Anyway from the breathing standpoint doing today. Feeling much less short of breath. The patient is DO NOT RESUSCITATE patient. She had a bronch done about 8 or 9 days ago which was positive for Pseudomonas. As currently being treated. Progress note dated 06/18/2016 71-year-old female with history of end-stage/stage IV COPD. She seems a bit better today. Less short of breath. Less to Neck and dyspneic. Is down to 3 L nasal cannula. From my perspective could be discharged home. Should a bronchoscopy done a week ago Tuesday. It was positive for Pseudomonas. She was admitted the very next day. His been in the hospital since. Doing better as I mentioned above. She wants be discharged home. Doesn't want to go to a penitentiary. I think she probably be better off going to the penitentiary for some rehab but she prefers not to. She does state that she does have help at home. She is no code. Does not want to be on life support mechanical ventilation or anything like that. Objective - Vital Signs Vital signs: Vital Signs Temp 97.0 F L 06/18/16 07:00 Pulse 86 06/18/16 08:29 Resp 16 06/18/16 07:00 BP 147/83 06/18/16 07:00 Pulse Ox 95 06/18/16 08:12 Intake & Output 06/17/16 06/18/16 06/18/16 18:59 06:59 18:59 Intake Total 410 240 Balance 410 240 Weight 54.5 kg 55.5 kg Intake: Oral 410 240 Other: Voiding Method Toilet Toilet # Voids 3 1 - Exam Mildly tachypneic and dyspneic. Oriented 3. HEENT examination is grossly unremarkable. Mucous membranes are moist. Neck supple. Full range of motion. No adenopathy or thyromegaly. Cardiovascular examination reveals regular rhythm rate. S1-S2 normal. No S3- S4 or murmur. Lungs reveal severely diminished breath sounds. A few scattered mild wheezes. No rhonchi. No crackles. Breath sounds are present significantly diminished. And abdominal examinations unremarkable. Extremities are intact. - Labs CBC & Chem 7: 06/16/16 22:46 06/13/16 08:43 Labs: Abnormal Lab Results - Last 24 Hours (Table) 06/17/16 06/17/16 06/17/16 Range/Units 11:57 17:25 20:40 POC Glucose (mg/dL) 137 H 191 H 145 H (75-99) mg/dL 06/18/16 Range/Units 06:41 POC Glucose (mg/dL) 145 H (75-99) mg/dL Assessment and Plan (1) Pneumonia Status: Acute (2) Acute exacerbation of chronic obstructive airways disease Status: Acute (3) Failure of outpatient treatment Status: Acute (4) Left lower lobe pneumonia Status: Acute Plan: Plan dated 06/14/2016 This patient has very severe end-stage COPD with an FEV1 that's about 2425% of predicted. Her bronchoscopy recently showed evidence of Pseudomonas. She's being treated for that. She has a history of chronic tobacco use quit in March 2016 as well as hypertension and heart failure. She is oxygen- dependent and steroid-dependent. Anyway we did talk about CODE STATUS. The patient will hopefully be able to be discharged in next 24-48 hours. I did recommend penitentiary. She refuses. I also talked about CODE STATUS. She is a DO NOT RESUSCITATE. Plan dated 06/15/2016 This 71-year-old female has a history of stage IV or end-stage COPD. She's doing reasonably well. Had a recent bronchoscopy will Pseudomonas. She's been treated for that. Is probably more of tracheobronchitis and actual pneumonia. She has severe COPD which is oxygen and steroid dependent. We did talk about CODE STATUS. She is a no code. Does not want to be on life. Additional recommendations suggestions are forthcoming. She does admit of boost up her Xanax dose. Plan dated 06/16/2016 The patient continues to show very minimal daily improvement. In fact she really hasn't improved all that much in the week she's been here. She is really not on the other way though. She continues on oxygen breathing treatment steroids antibiotics. I asked for a flutter valve at the bedside. They are doing well on mechanical percussion as well. Additional recommendations suggestions are forthcoming. We did establish CODE STATUS on her. She would not want intubation mechanical ventilation. She likely would never, the mechanical ventilator within up with a tracheostomy and probably in the put a specialized nursing facility for long-term care. Anyway that issues been resolved. We'll continue to follow. Prognosis is very guarded. Plan dated 06/17/2016 We'll continue to treat the patient very conservatively. I think another bronchoscopy would put her over the edge and with it and cause her in the cullen mechanical ventilator. Not interested in that right now. Had a very close call last night. I did tell the nurse to titrate down her FiO2. She was at 3 L neck turned up to 6 last night. Today she still on 6. They can be turned back down. Other than that her medications labs and x-rays are all reviewed. Prognosis is very poor. Plan dated 06/18/2016 Patient's medications labs and x-rays are reviewed. An x-ray from yesterday reveals only changes of COPD with hyperinflation and air trapping Misti a vertically a systemic heart. Nothing acute going on on the chest x-ray. Medications are reviewed. Labs reviewed. From my perspective the patient could be discharged. Overall prognosis is very poor though. She's got some very very severe end-stage COPD. Time with Patient: Less than 30
[2016-06-18 12:00] LABS: Glucose,Whole Blood 105 mg/dL (75-99)
[2016-06-18] MEDS: MULTIVITAMINS, THERA 1 EACH TAB PO SCH (12:45)
[2016-06-18] MEDS: LEVOFLOXACIN 750 MG TAB PO SCH (12:45)
[2016-06-18 15:06] VITALS: BP 127/66; RESP 18; TEMP 98.2
[2016-06-18 15:11] VITALS: PULSE 84
[2016-06-18 17:15] LABS: Glucose,Whole Blood 126 mg/dL (75-99)
[2016-06-18] MEDS ORDERED: SYMBICORT 160-4.5 MCG INHALER INHALATION SCH (20:00)
[2016-06-19] MEDS ORDERED: predniSONE 20 MG TAB PO SCH (09:00)
--- NOTE | 2016-06-20 21:09 | P.DS ---
Providers Date of admission: 06/09/16 13:12 Expected date of discharge: 06/18/16 Attending physician: Naet Coulter Consults: Dr. Estrada, Pulmonary Primary care physician: Quinn Cameron [facility] Course: Final Diagnoses: 1. Acute on chronic end-stage COPD exacerbation with right lower lobe pneumonia , possibly gram-negative, possibly aspiration with early sepsis, with failure of outpatient treatment. 2. Acute on Chronic hypoxic respiratory failure on home O2 of 3 L 3. [Leukocytosis]. 4.[Recent bronchoscopy, pleural cultures positive pseudomonas aeruginosa]. 5. [History of nicotine dependence, quit in March 2016]. 6. [Mild to moderate protein calorie malnutrition, BMI 19.6 with hypoalbuminemia ]. 7. [History of CHF]. 8. History of anxiety, not otherwise specified 9. No code, no CPR, no intubation 10. Epistaxis Hospital course: This is a 71-year-old female in a with acute exacerbation of end-stage COPD, right lower lobe pneumonia in a patient with recent bronchoscopy pleural cultures reporting pseudomonas aeruginosa and multiple other medical issues. Maintained on Levaquin, Zosyn, nebulized bronchodilators , IV steroids and CPT. Maintaining O2 sats of 95% on 3 L nasal cannula O2. Less dyspneic. Declining ECF/subacute rehab. Afebrile. Cleared by pulmonary for discharge. The patient is being discharged home in stable condition with guarded prognosis. Microbiology 06/09/16 13:15 Blood Blood Culture - Final No Growth after 144 hours 06/09/16 12:05 Blood Blood Culture - Final No Growth after 144 hours 06/09/16 17:10 Urine,Clean Catch Urine Culture - Final 06/09/16 16:17 Sputum Gram Stain - Final 06/09/16 16:17 Sputum Sputum Culture - Final Patient Condition at Discharge: Stable Plan - Discharge Summary New Discharge Prescriptions: ALPRAZolam [Xanax] 0.5 mg PO QID PRN #30 tab PRN Reason: Anxiety HYDROcodone/APAP 5-325MG [[place] 5-325] 1 each PO Q6HR PRN #20 tab PRN Reason: Pain Levofloxacin [Levaquin] 750 mg PO DAILY@1300 #5 tab Nystatin 100,000 Unit/ml Susp [Mycostatin Oral Susp] 500,000 unit PO QID #20 cup Pantoprazole [Protonix] 40 mg PO AC-BRKFST #30 tablet. Zolpidem [Ambien] 5 mg PO HS PRN #30 tab PRN Reason: Insomnia predniSONE 10 mg PO DIRECTED #84 tab Discharge Medication List Aspirin 81 mg PO DAILY 03/28/16 [History] Calcium Carbonate/Vitamin D3 [Calcium 500-Vit D3 600 Tablet] 1 tab PO DAILY 11/04 [History] Fluticasone/Salmeterol [Advair 500-50 Diskus] 1 puff INHALATION RT-BID 03/28/16 [History] Ipratropium/Albuterol Sulfate [Combivent Respimat Inhaler] 1 - 2 puff INHALATION RT-QID 03/28/16 [History] Losartan [Cozaar] 50 mg PO DAILY 03/28/16 [History] Metoprolol Succinate [Toprol XL] 25 mg PO DAILY 03/28/16 [History] Multivitamins, Thera [Multivitamin (formulary)] 1 tab PO DAILY 03/28/16 [History ] Theophylline 24 Hour [Ruben-24] 200 mg PO HS 03/28/16 [History] Budesonide [Pulmicort] 1 mg INHALATION RT-BID 10 Days 04/03/16 [Rx] Fluticasone Nasal [place] [Flonase Nasal [place]] 1 spray EA NOSTRIL DAILY 06/09/16 [History] Furosemide [Lasix] 20 mg PO Q48H 06/09/16 [History] Glucerna Shake 1 can PO DAILY 06/09/16 [History] predniSONE 5 mg PO DAILY #0 06/09/16 [Rx] ALPRAZolam [Xanax] 0.5 mg PO QID PRN #30 tab 06/18/16 [Rx] HYDROcodone/APAP 5-325MG [[place] 5-325] 1 each PO Q6HR PRN #20 tab 06/18/16 [Rx] Levofloxacin [Levaquin] 750 mg PO DAILY@1300 #5 tab 06/18/16 [Rx] Melatonin 3 mg PO HS tablet 06/18/16 [Rx] Nystatin 100,000 Unit/ml Susp [Mycostatin Oral Susp] 500,000 unit PO QID #20 cup 06/18/16 [Rx] Pantoprazole [Protonix] 40 mg PO AC-BRKFST #30 tablet. 06/18/16 [Rx] Zolpidem [Ambien] 5 mg PO HS PRN #30 tab 06/18/16 [Rx] predniSONE 10 mg PO DIRECTED #84 tab 06/18/16 [Rx] Follow up Appointment(s)/Referral(s): Quinn Cameron III, MD [Primary Care Provider] - 06/23/16 10:00 am [facility], [NON-STAFF] - Patient Instructions/Handouts: Heart Failure (DC), COPD (Chronic Obstructive Pulmonary Disease) (DC), Fall Prevention (DC) Activity/Diet/Wound Care/Special Instructions: 4 wheeled walker from [facility] #[phone] Cardiac diet. Discharge Disposition: HOME WITH HOME HEALTH SERVICES
== END 2016-06-18 17:46 | disposition home health service (06) | DRG 871 ==
LOC: EC 11:07 → 4MS4W 13:12
PROVIDERS: ADMIT Hospitalist; ATTEND Hospitalist
DX: A41.9 Sepsis, unspecified organism (principal); J15.1 Pneumonia due to Pseudomonas; J96.21 Acute and chronic respiratory failure with hypoxia; E44.0 Moderate protein-calorie malnutrition; I11.0 Hypertensive heart disease with heart failure; I50.9 Heart failure, unspecified; Z99.81 Dependence on supplemental oxygen; J44.0 Chronic obstructive pulmonary disease with (acute) lower respiratory infection; J44.1 Chronic obstructive pulmonary disease with (acute) exacerbation; Z68.1 Body mass index [BMI] 19.9 or less, adult; F06.4 Anxiety disorder due to known physiological condition; Z66 Do not resuscitate; Z79.52 Long term (current) use of systemic steroids; Z79.82 Long term (current) use of aspirin; Z79.899 Other long term (current) drug therapy; Z80.1 Family history of malignant neoplasm of trachea, bronchus and lung; Z80.6 Family history of leukemia; Z87.01 Personal history of pneumonia (recurrent); Z87.891 Personal history of nicotine dependence; Z88.8 Allergy status to other drugs, medicaments and biological substances
CPT/HCPCS: 31623; 31624; 36415; 71010; 71020; 80048; 80053; 82550; 82553; 83605; 83735; 84484; 85025; 85379; 85610; 85730; 87040; 87070; 87077; 87086; 87102; 87116; 87186; 87205; 87206; 87252; 87496; 87498; 87502; 87529; 87798; 88104; 88108; 88305; 93005; 94640; 94644; 94664; 94667; 94760; 96365; 96375; 99285